=== PATIENT | male | born 1960 | race Caucasian/White ===

== ENCOUNTER 2017-12-29 20:56 | Inpatient (IN) ==
[2017-12-29] MEDS ORDERED: Nitroglycerin 1 INCH/GM PACKET TP ONE (20:59)
[2017-12-29] MEDS ORDERED: Aspirin 81 MG TAB.CHEW PO ONE (20:59)
--- NOTE | 2017-12-29 21:02 | Emergency Department Note ---
Disposition Clinical Impression: Nonspecific ST-T wave electrocardiographic changes, NSTEMI (non-ST elevated myocardial infarction) Hypertension Qualifiers: Hypertension type: unspecified Qualified Code(s): I10 - Essential (primary) hypertension Disposition: Admitted As Inpatient Condition: Fair Referrals: Mauro Serrano [Primary Care Provider] - Forms: ED Satisfaction Letter Time of Disposition: 22:04 Chest Pain HPI - General Chief Complaint: ED Chest Pain Stated Complaint: CP Time Seen by Provider: 12/29/17 20:59 Source: patient, EMS Mode of arrival: EMS Limitations: no limitations Vital Signs Reviewed: Yes Nursing Notes Reviewed: Yes - History of Present Illness HPI Narrative: 57-year-old male history of hypertension, diabetes, CABG. For evaluation of chest pain. Patient states onset was a couple hours prior to arrival. Noted be nonexertional. Left side with radiation of his left arm. Patient took aspirin as well as nitroglycerin which relieved the pain. However patient had recurrence of symptoms upon EMS arrival and received a second dose of nitroglycerin which resolved his pain. Patient denied any diaphoresis nausea or vomiting. Patient states that he is on aspirin does not take Plavix. Patient does not have a recent heart catheter cardiac evaluation. - Related Data Home Medications Medication Instructions Recorded Confirmed Amlodipine Besylate 10 mg PO DAILY 12/29/17 12/29/17 Aspirin [Lo-Dose Aspirin EC] 81 mg PO DAILY 12/29/17 12/29/17 Atorvastatin [Lipitor] 40 mg PO HS 12/29/17 12/29/17 Lisinopril [Zestril] 40 mg PO DAILY 12/29/17 12/29/17 Metoprolol Tartrate [Lopressor] 100 mg PO BID 12/29/17 12/29/17 Spironolactone [Aldactone] 50 mg PO DAILY 12/29/17 12/29/17 Allergies Allergy/AdvReac Type Severity Reaction Status Date / Time tramadol [From Ultram] Allergy See Verified 08/20/15 22:09 Comments All systems ED: reviewed and negative except as stated. Constitutional: Denies: fever Cardiovascular: Reports: chest pain. Denies: palpitations Respiratory: Denies: cough Gastrointestinal: Denies: abdominal pain, nausea, vomiting Chest Pain PMH - Past Medical History Medical history: Reports: coronary artery disease, CVA, diabetes, hyperlipidemia , hypertension, myocardial infarction, renal disease, seizures, other Surgical history: Reports: coronary bypass (CABG) Psychiatric history: Reports: no psych history - Social History Smoking Status: Never smoker Alcohol use: Reports: none Drug use: Reports: none Physical Exam - General Limitations: no limitations General appearance: alert, in no apparent distress, obese - Head Head exam: atraumatic, normocephalic, normal inspection - Eye Eye exam: Present: normal appearance, PERRL, EOMI - ENT ENT exam: normal exam, mucous membranes moist - Neck Neck exam: Present: normal inspection. Absent: trachea midline - Chest Chest inspection: Present: normal inspection, symmetric chest wall rise - Respiratory Respiratory exam: Present: normal lung sounds bilaterally, other (Diffusely decreased). Absent: respiratory distress - Cardiovascular Cardiovascular exam: Present: regular rate, normal rhythm. Absent: systolic murmur - Abdominal Exam Abdominal exam: Present: soft, Non-Tender, distention - Extremities Exam Extremities exam: Present: normal inspection. Absent: pedal edema - Back Exam Back exam: Present: normal inspection - Neurological Exam Neurological exam: Present: alert, oriented X3 Course Course Narrative: Patient seen and examined. Patient appears to be in no acute distress. Patient chest pain-free. Patient will require a workup. Patient patient's record review shows that he did have echo 3 years ago had an EF of 55%. Patient is chest pain-free currently. Patient received bolus aspirin prior to arrival. - Reevaluation(s) Reevaluation #1: Patient's resting comfortably. Awaiting labs. Time: 22:01 Reevaluation #2: Patient is updated on plan of care. Patient continues to be chest pain-free. Patient's blood pressure responded to nitroglycerin. Time: 22:18 Vital Signs O2 Sat by Pulse Oximetry 95 12/29/17 21:01 Temperature 98.2 F 12/29/17 21:04 Pulse Rate 67 12/29/17 21:55 Respiratory Rate 16 12/29/17 21:55 Blood Pressure 158/89 12/29/17 21:55 O2 Sat by Pulse Oximetry 97 12/29/17 21:55 Oxygen Delivery Oxygen Delivery Room Air Chest Pain - MDM Narrative Medical decision making narrative: 57-year-old male here for evaluation of chest pain. Patient does have a concerning history of ACS. Patient did have T-wave inversions change from prior EKGs. Patient's labs and chest x-ray and EKG reviewed. Patient was given a nitroglycerin patch given his hypertension. Patient does not note any chest pain. Given the patient's high risk story as well as EKG changes. The patient was started on heparin. Patient denies any blood in stool or dark tarry stools. Patient's hemoglobin is stable. Patient would benefit from further evaluation of his cardiopulmonary status with likely stress testing. Patient will be admitted also sirs or further care and monitoring. - Lab Data Lab results reviewed: Yes I reviewed the patient's lab results. Result diagrams: 12/29/17 21:36 12/29/17 21:36 Lab Results 12/29/17 12/29/17 12/29/17 Range/Units 21:36 21:36 21:36 WBC 13.8 H (4.3-11.1) K/mcL RBC 5.24 (4.19-5.50) M/mcL Hgb 14.8 (12.9-16.9) g/dL Hct 44.7 (37.5-50.1) % MCV 85.3 (83.0-100.0) fL MCH 28.2 (28.0-33.3) pg MCHC 33.1 (31.6-35.5) g/dL RDW 12.8 (11.5-14.5) % Plt Count 374 (140-400) K/mcL MPV 9.0 L (9.4-12.4) fL Immature Gran % 0.7 (0-4) % Seg Neutrophils % 75.3 % Lymphocytes % 13.7 % Monocytes % 7.6 % Eosinophils % 2.2 % Basophils % 0.5 % Neutrophils # 10.4 H (1.6-8.9) K/mcL Lymphocytes # 1.9 (0.6-4.6) K/mcL Monocytes # 1.1 (0.0-1.3) K/mcL Eosinophils # 0.3 (0.0-0.6) K/mcL Basophils # 0.1 (0.0-0.2) K/mcL PT 10.8 (9.4-12.1) Seconds INR 1.0 APTT 30.5 (26.0-36.0) Seconds Sodium (136-145) mEq/L Potassium (3.5-5.1) mEq/L Chloride (98-107) mEq/L Carbon Dioxide (23-29) mEq/L BUN (6-20) mg/dL Creatinine (0.70-1.30) mg/dL Est GFR ( Amer) (> 60) Est GFR (Non-Af Amer) (> 60) BUN/Creatinine Ratio (6-26) Glucose (70-105) mg/dL Calculated Osmolality (280-300) Calcium (8.6-10.3) mg/dL Troponin I (< 0.04) ng/mL B-Natriuretic Peptide 39 (Less than 100) pg/mL 12/29/17 12/29/17 Range/Units 21:36 21:36 WBC (4.3-11.1) K/mcL RBC (4.19-5.50) M/mcL Hgb (12.9-16.9) g/dL Hct (37.5-50.1) % MCV (83.0-100.0) fL MCH (28.0-33.3) pg MCHC (31.6-35.5) g/dL RDW (11.5-14.5) % Plt Count (140-400) K/mcL MPV (9.4-12.4) fL Immature Gran % (0-4) % Seg Neutrophils % % Lymphocytes % % Monocytes % % Eosinophils % % Basophils % % Neutrophils # (1.6-8.9) K/mcL Lymphocytes # (0.6-4.6) K/mcL Monocytes # (0.0-1.3) K/mcL Eosinophils # (0.0-0.6) K/mcL Basophils # (0.0-0.2) K/mcL PT (9.4-12.1) Seconds INR APTT (26.0-36.0) Seconds Sodium 138 (136-145) mEq/L Potassium 4.1 (3.5-5.1) mEq/L Chloride 108 H (98-107) mEq/L Carbon Dioxide 25 (23-29) mEq/L BUN 23 H (6-20) mg/dL Creatinine 1.68 H (0.70-1.30) mg/dL Est GFR ( Amer) 51 L (> 60) Est GFR (Non-Af Amer) 42 L (> 60) BUN/Creatinine Ratio 14 (6-26) Glucose 96 (70-105) mg/dL Calculated Osmolality 290 (280-300) Calcium 9.0 (8.6-10.3) mg/dL Troponin I 0.05 H* (< 0.04) ng/mL B-Natriuretic Peptide (Less than 100) pg/mL - Radiology Data Radiology results reviewed: Yes I reviewed the patient's radiology results. Chest X-Ray 12/29/17 20:59 IMPRESSION: Stable portable study. D/ / Dorothy Chahal Cha, MD / Dorothy Chahal Cha, MD Interpreting Provider: Dorothy Chahal Cha, MD - EKG Data EKG attestation: Yes I reviewed and interpreted this EKG. EKG shows normal: sinus rhythm Rate: normal Rhythm: NSR [place]/QRS: normal T wave inversions noted in: I, aVL, v3, v4, v5, v6 When compared to previous EKG there are: changes noted Interpretation: nonspecific ST-T wave changes Heart Score - Score History: Highly Suspicious EKG: Non Specific repolarisation Disturbance Age: 45-65 Risk Factors: Equal/Greater than 3 risk factor or history of atherosclerotic disease Troponin: Less than normal limit HEART Score Total: 6 S.B.A.R. - S.B.A.RAbdiaziz Situation: Demographics Background: Presenting Complaint Assessment: Vital Signs, Course and respsone to treatment, Patient/Family Expectation, Pertinant Lab Results Recommendation: Barrier(s) to disposition, Recommendation based on pending studies, treatments, or consults S.B.A.RAbdiaziz Report Given to: Dr. Curtis SAbdiazizB.AMady Repor Time: 22:16
--- NOTE | 2017-12-29 21:11 | Emergency Department Note ---
START Narrative - START START: I examined this patient and my medical decision-making was reviewed with the Resident Physician, Ike Landeros. I agree with the documented findings, disposition and treatment plan as described except to the extent set forth below. I have personally performed a face to face evaluation on this patient. I have reviewed and agree with the care plan. Briefly: A 49-year-old male history of coronary artery bypass graft surgery presents with chest pain and shortness of breath. By EMS. Providing 45 minutes critical care service for this patient. Patient has subtle lateral ST depressions and T-wave inversions concerning for ischemia. But no acute ST elevations. Patient on aspirin per EMS. Patient will be getting chest x-ray and screening labs including troponin with admission. Admission disposition pending.
[2017-12-29 21:48] LABS: Basophils # 0.1 K/mcL (0.0-0.2); Basophils % 0.5 %; Eosinophils # 0.3 K/mcL (0.0-0.6); Eosinophils % 2.2 %; Hematocrit 44.7 % (37.5-50.1); Hemoglobin 14.8 g/dL (12.9-16.9); Immature Granulocytes % 0.7 % (0-4); Lymphocytes # 1.9 K/mcL (0.6-4.6); Lymphocytes % 13.7 %; Mean Corpuscular HGB Conc 33.1 g/dL (31.6-35.5); Mean Corpuscular Hemoglobin 28.2 pg (28.0-33.3); Mean Corpuscular Volume 85.3 fL (83.0-100.0); Monocytes # 1.1 K/mcL (0.0-1.3); Monocytes % 7.6 %; Neutrophils # 10.4 K/mcL (1.6-8.9); Platelet Count 374 K/mcL (140-400); Red Blood Count 5.24 M/mcL (4.19-5.50); Red Cell Distribution Width 12.8 % (11.5-14.5); Segmented Neutrophils % 75.3 %
[2017-12-29 21:53] LABS: Prothrombin Time 10.8 Seconds (9.4-12.1)
[2017-12-29 21:55] LABS: Activated Partial Thrombo Time 30.5 Seconds (26.0-36.0)
[2017-12-29] MEDS ORDERED: *HR* Heparin 5,000 UNIT/ML VIAL IVP ONE (21:59)
[2017-12-29] MEDS ORDERED: Heparin 25,000 UNIT/500 ML D5W 25,000 UNIT/500 ML BAG IVC SCH (22:00)
[2017-12-29 22:04] LABS: Potassium 4.1 mEq/L (3.5-5.1)
--- NOTE | 2017-12-29 22:44 | Emergency Department Note ---
Disposition Clinical Impression: Nonspecific ST-T wave electrocardiographic changes, NSTEMI (non-ST elevated myocardial infarction) Hypertension Qualifiers: Hypertension type: unspecified Qualified Code(s): I10 - Essential (primary) hypertension Disposition: Admitted As Inpatient Condition: Fair General Adult HPI - General Chief complaint: ED Chest Pain Stated complaint: CP Time Seen by Provider: 12/29/17 20:59 Source: patient, EMS Mode of arrival: EMS Limitations: no limitations - History of Present Illness Pain Scale: 0 - Related Data Home Medications Medication Instructions Recorded Confirmed Amlodipine Besylate 10 mg PO DAILY 12/29/17 12/29/17 Aspirin [Lo-Dose Aspirin EC] 81 mg PO DAILY 12/29/17 12/29/17 Atorvastatin [Lipitor] 40 mg PO HS 12/29/17 12/29/17 Lisinopril [Zestril] 40 mg PO DAILY 12/29/17 12/29/17 Metoprolol Tartrate [Lopressor] 100 mg PO BID 12/29/17 12/29/17 Spironolactone [Aldactone] 50 mg PO DAILY 12/29/17 12/29/17 Allergies Allergy/AdvReac Type Severity Reaction Status Date / Time tramadol [From Ultram] Allergy See Verified 08/20/15 22:09 Comments Constitutional: Denies: fever Cardiovascular: Reports: chest pain. Denies: palpitations Respiratory: Denies: cough Gastrointestinal: Denies: abdominal pain, nausea, vomiting Past Medical History - Past Medical History Medical history: Reports: coronary artery disease, CVA, diabetes, hyperlipidemia , hypertension, myocardial infarction, renal disease, seizures, other Surgical history: Reports: coronary bypass (CABG) Psychiatric history: Reports: no psych history - Social History Smoking Status: Never smoker Smokeless Tobacco Status: No Alcohol use: Reports: none Drug use: Reports: none Physical Exam - General Limitations: no limitations General appearance: alert, in no apparent distress, obese Course Course Narrative: Continuation of the prior documentation. Vital Signs O2 Sat by Pulse Oximetry 95 12/29/17 21:01 Temperature 98.2 F 12/29/17 21:04 Pulse Rate 67 12/29/17 21:55 Respiratory Rate 16 12/29/17 21:55 Blood Pressure 158/89 12/29/17 21:55 O2 Sat by Pulse Oximetry 97 12/29/17 21:55 Oxygen Delivery Oxygen Delivery Room Air Medical Decision Making - Lab Data Result diagrams: 12/29/17 21:36 12/29/17 21:36 Lab Results 12/29/17 12/29/17 12/29/17 Range/Units 21:36 21:36 21:36 WBC 13.8 H (4.3-11.1) K/mcL RBC 5.24 (4.19-5.50) M/mcL Hgb 14.8 (12.9-16.9) g/dL Hct 44.7 (37.5-50.1) % MCV 85.3 (83.0-100.0) fL MCH 28.2 (28.0-33.3) pg MCHC 33.1 (31.6-35.5) g/dL RDW 12.8 (11.5-14.5) % Plt Count 374 (140-400) K/mcL MPV 9.0 L (9.4-12.4) fL Immature Gran % 0.7 (0-4) % Seg Neutrophils % 75.3 % Lymphocytes % 13.7 % Monocytes % 7.6 % Eosinophils % 2.2 % Basophils % 0.5 % Neutrophils # 10.4 H (1.6-8.9) K/mcL Lymphocytes # 1.9 (0.6-4.6) K/mcL Monocytes # 1.1 (0.0-1.3) K/mcL Eosinophils # 0.3 (0.0-0.6) K/mcL Basophils # 0.1 (0.0-0.2) K/mcL PT 10.8 (9.4-12.1) Seconds INR 1.0 APTT 30.5 (26.0-36.0) Seconds Sodium (136-145) mEq/L Potassium (3.5-5.1) mEq/L Chloride (98-107) mEq/L Carbon Dioxide (23-29) mEq/L BUN (6-20) mg/dL Creatinine (0.70-1.30) mg/dL Est GFR ( Amer) (> 60) Est GFR (Non-Af Amer) (> 60) BUN/Creatinine Ratio (6-26) Glucose (70-105) mg/dL Calculated Osmolality (280-300) Calcium (8.6-10.3) mg/dL Troponin I (< 0.04) ng/mL B-Natriuretic Peptide 39 (Less than 100) pg/mL 12/29/17 12/29/17 Range/Units 21:36 21:36 WBC (4.3-11.1) K/mcL RBC (4.19-5.50) M/mcL Hgb (12.9-16.9) g/dL Hct (37.5-50.1) % MCV (83.0-100.0) fL MCH (28.0-33.3) pg MCHC (31.6-35.5) g/dL RDW (11.5-14.5) % Plt Count (140-400) K/mcL MPV (9.4-12.4) fL Immature Gran % (0-4) % Seg Neutrophils % % Lymphocytes % % Monocytes % % Eosinophils % % Basophils % % Neutrophils # (1.6-8.9) K/mcL Lymphocytes # (0.6-4.6) K/mcL Monocytes # (0.0-1.3) K/mcL Eosinophils # (0.0-0.6) K/mcL Basophils # (0.0-0.2) K/mcL PT (9.4-12.1) Seconds INR APTT (26.0-36.0) Seconds Sodium 138 (136-145) mEq/L Potassium 4.1 (3.5-5.1) mEq/L Chloride 108 H (98-107) mEq/L Carbon Dioxide 25 (23-29) mEq/L BUN 23 H (6-20) mg/dL Creatinine 1.68 H (0.70-1.30) mg/dL Est GFR ( Amer) 51 L (> 60) Est GFR (Non-Af Amer) 42 L (> 60) BUN/Creatinine Ratio 14 (6-26) Glucose 96 (70-105) mg/dL Calculated Osmolality 290 (280-300) Calcium 9.0 (8.6-10.3) mg/dL Troponin I 0.05 H* (< 0.04) ng/mL B-Natriuretic Peptide (Less than 100) pg/mL - EKG Data EKG #2 EKG attestation: Yes I reviewed and interpreted this EKG. EKG shows normal: sinus rhythm Rate: normal Rhythm: NSR [place]/QRS: normal ST segment elevation in: III T wave inversions noted in: I, aVL, v2, v3, v4, v5, v6
[2017-12-29] MEDS ORDERED: Naloxone 0.4 MG/ML INJ IVP PRN (23:16)
[2017-12-29] MEDS ORDERED: *HR* Heparin 5,000 UNIT/ML VIAL IVP PRN ×2 (23:20)
[2017-12-30] MEDS ORDERED: *HR* OxyCODONE/APAP 10/325 TABLET PO PRN (00:07)
--- NOTE | 2017-12-30 00:07 | Internal Med History&Physical ---
Date of Encounter: 12/29/17 Time of Encounter: 22:00 Assessment and Plan (1) CKD (chronic kidney disease) Current visit: Yes Status: Acute Creatinine level is at his baseline. Avoid the nephrotoxic medications Qualifiers: Chronic kidney disease stage: stage 3 (moderate) Qualified Code(s): N18.3 - Chronic kidney disease, stage 3 (moderate) (2) Morbid obesity Current visit: Yes Status: Acute Patient said he has already lost some weight. Continue lifestyle modification and diet control (3) Hypertension Current visit: Yes Status: Acute Continue home medications Qualifiers: Hypertension type: essential hypertension Qualified Code(s): I10 - Essential (primary) hypertension (4) Non-STEMI (non-ST elevated myocardial infarction) Current visit: Yes Status: Acute Patient has chest pain. EKG changes with T-wave inversion. Elevated troponin. History of CAD S/P CABG. Consider NSTEMI. - Heparin drip started the ER, will continue - Closely monitor patient with cardiac monitoring - 3 sets of troponin - NTG paste has been placed - Nothing by mouth from midnight for possible catheterization. - Consult cardiology. Patient is at high risk because he is on heparin drip. Need close monitoring. (5) DVT prophylaxis Current visit: No Status: Acute Patient is on heparin drip right now Internal Medicine - H&P: HPI Chief complaint: Chest pain Admitted From: Home Plans for Post Hospital Care: Home History of present illness: Mr. Lujna is a 57 year old male with a history of hypertension, CAD S/P CABG, chronic back pain, presented to ER for chest pain. Patient said he has on and off chest pain for about one month. Today at about 7:30 PM, when patient was sitting there drinking Pepsi, he had sudden onset chest pain, located on left side of chest, sharp, 10 out of 10, radiated to left arm. Patient has shortness of breath, nausea and vomited once, and diaphoresis. Patient's daughter said he looks pale. Patient takes NTG sublingual at home and he was given another dose of NTG by EMS. His chest pain resolved after two dose of NTG sublingual. When I saw patient in the ER, he is totally pain free. His chest pain lasted about 2 hours. In the emergency room, chest x-ray negative, EKG shows T-wave inversion on I and aVL, V2 to V6, which is changed from previous EKG. No ST elevation. His first troponin is 0.05. Patient was considered NSTEMI and heparin drip has been started. Patient will keep in hospital for further management. Past Med Surg Social Fam HX - Past Medical History Medical history: coronary artery disease, CVA, diabetes, hyperlipidemia, hypertension, myocardial infarction, renal disease, other Psychiatric history: no psych history - Past Surgical History Surgical History: coronary bypass (CABG) - Social History Smoking Status: Never smoker Smokeless Tobacco Status: No Alcohol use: occasionally Drug use: none - Family History Mother Living Status: Hx Family Cancer: Yes (Lung) Father Name: Freddy Lujan Living Status: Age at : 70 Cause of : heart attack Hx Family Cardiac Disorders: Yes Hx Family Respiratory Disorders: No Hx Family Cancer: No Hx Family GI Disorders: No Hx Family Genitourinary Disorders: No Hx Family Endocrine Disorder: Yes (DM) Hx Family Musculoskeletal Disorders: No Hx Family Neuromuscular Disorders: No Hx Family Neurologic Disorders: No Hx Family HEENT Disorders: No Hx Family Autoimmune Disorders: No Hx Family Reproductive Disorders: No Hx Family Psychosocial Disorders: No Hx Family Medical Disorders: No Internal Medicine - H&P: Meds Amlodipine Besylate 10 mg PO DAILY 12/29/17 [History] Aspirin [Lo-Dose Aspirin EC] 81 mg PO DAILY 12/29/17 [History] Atorvastatin [Lipitor] 40 mg PO HS 12/29/17 [History] Lisinopril [Zestril] 40 mg PO DAILY 12/29/17 [History] Metoprolol Tartrate [Lopressor] 100 mg PO BID 12/29/17 [History] Spironolactone [Aldactone] 50 mg PO DAILY 12/29/17 [History] 3 Allergy/AdvReac Type Severity Reaction Status Date / Time tramadol [From Ultram] Allergy See Verified 08/20/15 22:09 Comments All Systems PM: A 10-system review of systems was performed and is negative for pertinent findings except as documented above in the HPI. - Constitutional Vitals: Temp Pulse Resp BP Pulse Ox 98.1 F 68 17 162/98 95 12/29/17 23:23 12/29/17 23:23 12/29/17 23:23 12/29/17 23:23 12/29/17 23:23 General appearance: Present: A&O X 3, no acute distress, answers questions appropriately - Head Head exam: Present: atraumatic, normocephalic - Eye Eye exam: Present: PERRL, conjuntiva pink, sclera anicteric Pupils: Present: PERRL - Neck Neck exam general surgery: Present: supple, trachea midline. Absent: lymphadenopathy - Respiratory Respiratory exam: Present: CTAB. Absent: accessory muscle use, rales, rhonchi, wheezes - Cardiovascular Cardiovascular exam: Present: RRR, +S1, +S2. Absent: diastolic murmur, gallop, rubs, systolic murmur - GI/Abdominal GI/Abdominal exam: Present: normal bowel sounds, soft, no peritoneal signs. Absent: distended, tenderness - Extremities Exam Extremities exam: Present: warm, radial pulses palpable and symmetrical. Absent : calf tenderness, cyanotic, pedal edema - Neurological Exam Neurological exam: Present: CN II-XII intact, oriented X3, no focal deficits. Absent: pronater drift, facial droop, speech deficit - Skin Skin exam: Present: dry, intact Internal Med - H&P Results - Labs CBC & Chem 7: 12/29/17 21:36 12/29/17 21:36 - EKG Data -: EKG Interpreted by Myself EKG shows normal: sinus rhythm, ST-T waves (P wave inversion at I, aVL, V2 to V6 )
[2017-12-30] MEDS ORDERED: 0.9 % Sodium Chloride 1,000 ML IVC SCH (00:15)
[2017-12-30 05:14] LABS: Basophils # 0.1 K/mcL (0.0-0.2); Basophils % 0.8 %; Eosinophils # 0.5 K/mcL (0.0-0.6); Eosinophils % 3.6 %; Hematocrit 45.3 % (37.5-50.1); Hemoglobin 14.7 g/dL (12.9-16.9); Immature Granulocytes % 0.9 % (0-4); Lymphocytes # 3.6 K/mcL (0.6-4.6); Mean Corpuscular HGB Conc 32.5 g/dL (31.6-35.5); Mean Corpuscular Hemoglobin 27.8 pg (28.0-33.3); Mean Corpuscular Volume 85.8 fL (83.0-100.0); Mean Platelet Volume 9.3 fL (9.4-12.4); Monocytes # 0.9 K/mcL (0.0-1.3); Monocytes % 7.1 %; Neutrophils # 7.7 K/mcL (1.6-8.9); Platelet Count 351 K/mcL (140-400); Red Blood Count 5.28 M/mcL (4.19-5.50); Red Cell Distribution Width 12.7 % (11.5-14.5); Segmented Neutrophils % 59.6 %
[2017-12-30 05:39] LABS: BUN/Creatinine Ratio 19 (6-26); Blood Urea Nitrogen 26 mg/dL (6-20); Calcium 9.1 mg/dL (8.6-10.3); Carbon Dioxide 24 mEq/L (23-29); Chloride 110 mEq/L (98-107); Chol/HDL Ratio 5.6 (0-4.9); Cholesterol 163 mg/dL (< 200); Glucose 99 mg/dL (70-105); HDL Cholesterol 29 mg/dL (40-59); LDL Cholesterol,Calculated 109 mg/dL (0-99); Magnesium 2.2 mg/dL (1.6-2.6); Osmolality,Calculated 295 (280-300); Potassium 3.8 mEq/L (3.5-5.1); Sodium 140 mEq/L (136-145); Triglycerides 126 mg/dL (< 150); eGFR For African Americans > 60 (> 60); eGFR For Non-African Americans 53 (> 60)
[2017-12-30] MEDS ORDERED: amLODIPine 5 MG TABLET PO SCH (09:00)
[2017-12-30] MEDS ORDERED: Lisinopril 20 MG TABLET PO SCH (09:00)
[2017-12-30] MEDS ORDERED: Aspirin Enteric Coated 81 MG Tablet PO SCH (09:00)
--- NOTE | 2017-12-30 09:50 | Cardiology Consult Note ---
Date of Encounter: 12/30/17 Time of Encounter: 09:48 Assessment and Plan (1) NSTEMI (non-ST elevated myocardial infarction) Current Visit: No Status: Acute Chest pain with abnormal EKG and enzymes, c/w NSTEMI. Currently CP free. Would recommend ASA, BBlocker, heparin as you are doing. Recommend he consider left heart cath, he will consider. Discussion w patient/family: The assessment and plan as outlined above was discussed with the patient and/or family members who expressed understanding and agreement. All questions were answered. Thank you for involving us in the care of your patient. Please call with any questions. History of Present Illness Consult date: 12/30/17 Requesting physician: Carole Sweet Consult reason: NSTEMI Chief complaint: Chest pain History of present illness: Mr. Lujan is a 57 year old male with history of CAD, S/P CABG. He presents with chest pain with rest that did not initially respond to nitro. Past Med Surg Social Fam HX - Past Medical History Medical history: coronary artery disease, CVA, diabetes, hyperlipidemia, hypertension, myocardial infarction, renal disease, other Psychiatric history: no psych history - Past Surgical History Surgical History: coronary bypass (CABG) - Social History Smoking Status: Never smoker Smokeless Tobacco Status: No Alcohol use: occasionally Drug use: none - Family History Mother Living Status: Hx Family Cancer: Yes (Lung) Father Name: Freddy Lujan Living Status: Age at : 70 Cause of : heart attack Hx Family Cardiac Disorders: Yes Hx Family Respiratory Disorders: No Hx Family Cancer: No Hx Family GI Disorders: No Hx Family Genitourinary Disorders: No Hx Family Endocrine Disorder: Yes (DM) Hx Family Musculoskeletal Disorders: No Hx Family Neuromuscular Disorders: No Hx Family Neurologic Disorders: No Hx Family HEENT Disorders: No Hx Family Autoimmune Disorders: No Hx Family Reproductive Disorders: No Hx Family Psychosocial Disorders: No Hx Family Medical Disorders: No Medications and Allergies Amlodipine Besylate 10 mg PO DAILY 12/29/17 [History] Aspirin [Lo-Dose Aspirin EC] 81 mg PO DAILY 12/29/17 [History] Atorvastatin [Lipitor] 40 mg PO HS 12/29/17 [History] Lisinopril [Zestril] 40 mg PO DAILY 12/29/17 [History] Metoprolol Tartrate [Lopressor] 100 mg PO BID 12/29/17 [History] Spironolactone [Aldactone] 50 mg PO DAILY 12/29/17 [History] 3 Allergy/AdvReac Type Severity Reaction Status Date / Time tramadol [From Ultram] Allergy See Verified 08/20/15 22:09 Comments All Systems Review: A 10-system review of systems was performed and is negative for pertinent findings except as documented above in the HPI. Physical Examination Vital Signs, Last 4 Hours Temp Pulse Resp BP Pulse Ox 12/30/17 07:42 97.6 F 63 16 156/92 94 Results 12/30/17 04:28 12/30/17 04:28 Lab Results 12/30/17 12/30/17 12/30/17 04:28 04:28 04:28 WBC 12.9 H Hgb 14.7 Hct 45.3 Plt Count 351 APTT Sodium 140 Potassium 3.8 Chloride 110 H Carbon Dioxide 24 BUN 26 H Creatinine 1.38 H Glucose 99 Calcium 9.1 Magnesium 2.2 Troponin I 1.11 H* 12/30/17 04:28 WBC Hgb Hct Plt Count APTT 55.8 H D Sodium Potassium Chloride Carbon Dioxide BUN Creatinine Glucose Calcium Magnesium Troponin I - EKG Interpretation EKG results cardiology: other (NSR, diffuse T wave changes, similar to previous EKGs) Consult Discharge Plan - Plan Referrals: Mauro Serrano [Primary Care Provider] -
[2017-12-30 11:08] VITALS: BP 162/85
--- NOTE | 2017-12-30 13:38 | Discharge Summary ---
Date of Encounter: 12/30/17 Time of Encounter: 13:34 - Discharge Diagnosis (1) Non-STEMI (non-ST elevated myocardial infarction) Priority: Primary Status: Acute (2) OSCAR (acute kidney injury) Priority: Primary Status: Acute (3) Hypertension Priority: Secondary Status: Acute Qualifiers: Hypertension type: essential hypertension Qualified Code(s): I10 - Essential (primary) hypertension (4) Morbid obesity Priority: Secondary Status: Acute (5) CAD (coronary artery disease) Priority: Secondary Status: Chronic Qualifiers: Coronary Disease-Associated Artery/Lesion type: unspecified vessel or lesion type [place] vs. transplanted heart: [place] heart Associated angina: with stable angina Qualified Code(s): I25.118 - Atherosclerotic heart disease of [place] coronary artery with other forms of angina pectoris - Discharge Medications Prescriptions: Isosorbide MONOnitrate (24 HR) [Imdur] 30 mg PO DAILY #30 tab.er.24h Home Medications: Amlodipine Besylate 10 mg PO DAILY 12/29/17 [History] Aspirin [Lo-Dose Aspirin EC] 81 mg PO DAILY 12/29/17 [History] Atorvastatin [Lipitor] 40 mg PO HS 12/29/17 [History] Lisinopril [Zestril] 40 mg PO DAILY 12/29/17 [History] Metoprolol Tartrate [Lopressor] 100 mg PO BID 12/29/17 [History] Spironolactone [Aldactone] 50 mg PO DAILY 12/29/17 [History] Isosorbide MONOnitrate (24 HR) [Imdur] 30 mg PO DAILY #30 tab.er.24h 12/30/17 [ Rx] Oxycodone HCl/Acetaminophen [Endocet 10-325 mg Tablet] 1 tab PO QID PRN [History] Pregabalin [Lyrica] 200 mg PO BID 12/30/17 [History] Allergies/Adverse Reactions: 3 Allergy/AdvReac Type Severity Reaction Status Date / Time tramadol [From Ultram] Allergy See Verified 08/20/15 22:09 Comments Procedures/tests Complete & Pending: Procedures Performed prior 72 hours Category Date Time Status EV echocardiogram Routine Y 12/30/17 10:15 Ordered Date of admission: 12/29/17 23:17 Primary care physician: Mauro Serrano Consults: 12/29/17 23:22 Consult to Cardiology [CONS] Routine Comment: Consulting Provider: Cardiology Jeana Reason for Consult: NSTEMI Call Completed: No Discharging clinician: Adam Alicia - Patient Status Disposition: Left Against Medical Advice Condition: Fair Overall status at discharge: patient is not back to baseline - Discharge Instructions Instructions: Myocardial Infarction (DC), Diabetes Mellitus Type 2 in Adults ( DC), Chronic Hypertension (DC) Follow Up With: Mauro Serrano [Primary Care Provider] - Jn Leblanc MD [Partnered Physician] - - Diet and Activity Activity: increase activity as tolerated Diet: diabetic diet, low fat, low cholesterol, low salt diet Interval History: Mr. Lujan is a 57 year old male with a history of hypertension, CAD S/P CABG, chronic back pain, presented to ER for chest pain. Patient said he has on and off chest pain for about one month. Today at about 7:30 PM, when patient was sitting there drinking Pepsi, he had sudden onset chest pain, located on left side of chest, sharp, 10 out of 10, radiated to left arm. Patient has shortness of breath, nausea and vomited once, and diaphoresis. Patient's daughter said he looks pale. Patient takes NTG sublingual at home and he was given another dose of NTG by EMS. His chest pain resolved after two dose of NTG sublingual. Hospital course: Patient was examined by me this morning. Patient was just pain-free. Noted that there is a ongoing heparin drip. Patient is presently on aspirin/beta kay/statin and heparin drip. Cardiology consult today. Cardiology evaluated this patient. Cardiology recommended present treatment along with that also recommended left heart cardiac catheterization. Around 1 PM patient decided that he is not keen to go for any invasive procedure for his heart. Patient feels that during the procedure he might get a heart attack. I along with RUBI Rosenberg explained patient at length that this is the most essential and safe procedure for patient and he should highly consider to get it done. Patient is insisting to go home to watch [employer]. I spoke with Dr. Jn Leblanc. Updated above. Patient has also expressed the same concern with Dr. Jn Leblanc and he is aware that patient might leave the hospital without cardiac catheterization. I also informed Dr. Lynn Leblanc who is a property assistant development professional today regarding possibility that patient might come back with the worsening troponin and extensive VT. One more time I along with the RN Chet patient's room and explained him the risk of leaving this hospital AGAINST MEDICAL ADVICE. I explained to the patient that he might get another severe heart attack, stroke or there is a high possibility that he may from these conditions. And insisted to go home. Plan: At this point I will give him prescription for Imdur. I will make a follow-up appointment with cardiology in 1 week. Patient has a home medication in terms of aspirin/beta blockers/statin. All questions answered. Again I requested patient to stay back and get catheterization done but he insists to leave hospital. Patient will be leaving AGAINST MEDICAL ADVICE. - Time Spent with Patient Total time spent providing and/or coordinating discharge services: Less than 30 minutes - Constitutional Vitals: Temp Pulse Resp BP Pulse Ox 97.6 F 78 14 162/85 94 12/30/17 11:06 12/30/17 11:06 12/30/17 11:06 12/30/17 11:06 12/30/17 11:06 General appearance: Present: A&O X 3, no acute distress, answers questions appropriately - Head Head exam: Present: atraumatic, normocephalic - Eye Eye exam: Present: PERRL, conjuntiva pink, sclera anicteric Pupils: Present: PERRL - Neck Neck exam general surgery: Present: supple, trachea midline. Absent: lymphadenopathy - Respiratory Respiratory exam: Present: CTAB. Absent: accessory muscle use, rales, rhonchi, wheezes - Cardiovascular Cardiovascular exam: Present: RRR, +S1, +S2. Absent: diastolic murmur, gallop, rubs, systolic murmur - GI/Abdominal GI/Abdominal exam: Present: normal bowel sounds, soft, no peritoneal signs. Absent: distended, tenderness - Extremities Exam Extremities exam: Present: warm, radial pulses palpable and symmetrical. Absent : calf tenderness, cyanotic, pedal edema - Neurological Exam Neurological exam: Present: CN II-XII intact, oriented X3, no focal deficits. Absent: pronater drift, facial droop, speech deficit - Skin Skin exam: Present: dry, intact
[2017-12-30] MEDS ORDERED: Perflutren Lipid Microsphere 1.3 ML in 0.9 % Sodium Chloride 8.7 ML IVP ONE (14:21)
--- NOTE | 2018-01-01 20:11 | Electrocardiograph Report ---
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
--- NOTE | 2018-01-01 20:12 | Electrocardiograph Report ---
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
== END 2017-12-30 16:36 | disposition left against medical advice (07) | DRG 190 ==
LOC: 2NENU 20:56 → EMEROO 20:56 → 2NENU 23:01
PROVIDERS: ADMIT Pediatrics; ATTEND Internal Medicine

== ENCOUNTER 2018-01-12 17:27 | Inpatient (IN) ==
--- NOTE | 2018-01-12 17:32 | Emergency Department Note ---
Disposition Clinical Impression: Chest pain Disposition: Admitted As Inpatient Condition: Serious General Adult HPI - General Chief complaint: ED Arrhythmia/Palpitations Stated complaint: chest pain Time Seen by Provider: 01/12/18 17:31 - Related Data Home Medications Medication Instructions Recorded Confirmed Amlodipine Besylate 10 mg PO DAILY 12/29/17 12/30/17 Aspirin [Lo-Dose Aspirin EC] 81 mg PO DAILY 12/29/17 12/30/17 Atorvastatin [Lipitor] 40 mg PO HS 12/29/17 12/30/17 Lisinopril [Zestril] 40 mg PO DAILY 12/29/17 12/30/17 Metoprolol Tartrate [Lopressor] 100 mg PO BID 12/29/17 12/30/17 Spironolactone [Aldactone] 50 mg PO DAILY 12/29/17 12/30/17 Oxycodone HCl/Acetaminophen 1 tab PO QID PRN 12/30/17 12/30/17 [Endocet 10-325 mg Tablet] Pregabalin [Lyrica] 200 mg PO BID 12/30/17 12/30/17 Previous Rx's Medication Instructions Recorded Isosorbide MONOnitrate (24 HR) 30 mg PO DAILY #30 tab.er.24h 12/30/17 [Imdur] Allergies Allergy/AdvReac Type Severity Reaction Status Date / Time tramadol [From [facility]] Allergy See Verified 08/20/15 22:09 Comments Past Medical History - Past Medical History Medical history: Reports: coronary artery disease, CVA, diabetes, hyperlipidemia , hypertension, myocardial infarction, renal disease, other Surgical history: Reports: coronary bypass (CABG) Psychiatric history: Reports: no psych history - Social History Smoking Status: Never smoker Smokeless Tobacco Status: No Alcohol use: Reports: occasionally Drug use: Reports: none Course Vital Signs Temperature 98.2 F 01/12/18 17:31 Pulse Rate 72 01/12/18 17:31 Respiratory Rate 14 01/12/18 17:31 Blood Pressure 167/99 01/12/18 17:31 O2 Sat by Pulse Oximetry 94 01/12/18 17:31 Temperature 98.1 F 01/13/18 07:08 Pulse Rate 71 01/13/18 07:08 Respiratory Rate 16 01/13/18 07:08 Blood Pressure 162/96 01/13/18 07:08 O2 Sat by Pulse Oximetry 96 01/13/18 08:15 Oxygen Delivery Oxygen Delivery Room Air Medical Decision Making - Lab Data Result diagrams: 01/13/18 00:48 01/13/18 00:48 Lab Results 01/12/18 01/12/18 01/12/18 Range/Units 17:52 17:52 17:52 WBC 17.0 H (4.3-11.1) K/mcL RBC 5.24 (4.19-5.50) M/mcL Hgb 15.0 (12.9-16.9) g/dL Hct 45.1 (37.5-50.1) % MCV 86.1 (83.0-100.0) fL MCH 28.6 (28.0-33.3) pg MCHC 33.3 (31.6-35.5) g/dL RDW 12.8 (11.5-14.5) % Plt Count 327 (140-400) K/mcL MPV 9.6 (9.4-12.4) fL Immature Gran % 0.5 (0-4) % Seg Neutrophils % 88.0 % Lymphocytes % 6.9 % Monocytes % 3.8 % Eosinophils % 0.4 % Basophils % 0.4 % Neutrophils # 15.0 H (1.6-8.9) K/mcL Lymphocytes # 1.2 (0.6-4.6) K/mcL Monocytes # 0.7 (0.0-1.3) K/mcL Eosinophils # 0.1 (0.0-0.6) K/mcL Basophils # 0.1 (0.0-0.2) K/mcL PT 11.5 (9.4-12.1) Seconds INR 1.1 APTT 31.5 (26.0-36.0) Seconds Sodium 139 (136-145) mEq/L Potassium 4.8 (3.5-5.1) mEq/L Chloride 106 (98-107) mEq/L Carbon Dioxide 26 (23-29) mEq/L BUN 21 H (6-20) mg/dL Creatinine 1.44 H (0.70-1.30) mg/dL Est GFR ( Amer) > 60 (> 60) Est GFR (Non-Af Amer) 50 L (> 60) BUN/Creatinine Ratio 15 (6-26) Glucose 135 H (70-105) mg/dL Calculated Osmolality 293 (280-300) Calcium 9.8 (8.6-10.3) mg/dL Troponin I (< 0.04) ng/mL 01/12/18 01/12/18 01/12/18 Range/Units 17:52 18:41 18:41 WBC 16.9 H (4.3-11.1) K/mcL RBC 5.22 (4.19-5.50) M/mcL Hgb 14.6 (12.9-16.9) g/dL Hct 44.9 (37.5-50.1) % MCV 86.0 (83.0-100.0) fL MCH 28.0 (28.0-33.3) pg MCHC 32.5 (31.6-35.5) g/dL RDW 12.6 (11.5-14.5) % Plt Count 377 (140-400) K/mcL MPV 9.1 L (9.4-12.4) fL Immature Gran % (0-4) % Seg Neutrophils % % Lymphocytes % % Monocytes % % Eosinophils % % Basophils % % Neutrophils # (1.6-8.9) K/mcL Lymphocytes # (0.6-4.6) K/mcL Monocytes # (0.0-1.3) K/mcL Eosinophils # (0.0-0.6) K/mcL Basophils # (0.0-0.2) K/mcL PT (9.4-12.1) Seconds INR APTT 31.3 (26.0-36.0) Seconds Sodium (136-145) mEq/L Potassium (3.5-5.1) mEq/L Chloride (98-107) mEq/L Carbon Dioxide (23-29) mEq/L BUN (6-20) mg/dL Creatinine (0.70-1.30) mg/dL Est GFR ( Amer) (> 60) Est GFR (Non-Af Amer) (> 60) BUN/Creatinine Ratio (6-26) Glucose (70-105) mg/dL Calculated Osmolality (280-300) Calcium (8.6-10.3) mg/dL Troponin I 0.05 H* (< 0.04) ng/mL Critical Care Time Critical Care Time: Yes Total Critical Care Time: 30 Attestation: The high probability of a clinically significant, sudden or life threatening deterioration of the [] system(s) required my full and direct attention, intervention and personal management. The aggregate critical care time was [] minutes. This time is in addition to time spent performing reported procedures but includes the following: [] Data Review and interpretation [] Patient assessment and monitoring of vital signs [] Documentation [] Medication orders and management Attestation Statement - Attestation Attestation: I examined this patient and my medical decision-making was reviewed with the Resident Physician. I agree with the documented findings, disposition and treatment plan as described except to the extent set forth below. [id number] time provided in conjunction with the resident physician Dr. Kiser Patient arrives by EMS complaining of chest discomfort over the past 4 hours. History of CABG. Was recently admitted for an N STEMI. The patient took 3 prehospital nitroglycerin and has started had an aspirin. He does not appear in any acute distress. I did review the transcribed cardiology consultation report from his most recent admission 18:38: I discussed this case with Dr. Muñoz, cardiology assistant director of admissions who agrees to evaluate the patient in consultation upon admission to the medicine service
--- NOTE | 2018-01-12 17:55 | Emergency Department Note ---
Disposition Clinical Impression: Chest pain Qualifiers: Chest pain type: precordial pain Qualified Code(s): R07.2 - Precordial pain Disposition: Admitted As Inpatient Condition: Serious Time of Disposition: 20:30 Chest Pain HPI - General Chief Complaint: ED Chest Pain Stated Complaint: chest pain Time Seen by Provider: 01/12/18 17:31 Source: patient Vital Signs Reviewed: Yes Nursing Notes Reviewed: Yes - History of Present Illness HPI Narrative: 57-year-old male complains of chest pain that started 3-1/2 hours ago. Patient states he has mid substernal chest pressure that was 9/10 at onset with radiation down the left arm and to his back without a ripping or tearing quality. Patient states he had associated shortness of breath and lightheadedness. Patient states he is unable to drive and called EMS. Patient states she has never had pain like this before but has a history of SD with attempted heart catheter placement 2 years ago, and CABG. patient states his pain is currently 4/10 after 3 nitroglycerin taken at home, morphine 4 mg IV given by EMS. He also has a history of CVA, diabetes, hypertension, hyperlipidemia renal disease Severity scale (1-10): 4 - Related Data Home Medications Medication Instructions Recorded Confirmed Amlodipine Besylate 10 mg PO DAILY 12/29/17 12/30/17 Aspirin [Lo-Dose Aspirin EC] 81 mg PO DAILY 12/29/17 12/30/17 Atorvastatin [Lipitor] 40 mg PO HS 12/29/17 12/30/17 Lisinopril [Zestril] 40 mg PO DAILY 12/29/17 12/30/17 Metoprolol Tartrate [Lopressor] 100 mg PO BID 12/29/17 12/30/17 Spironolactone [Aldactone] 50 mg PO DAILY 12/29/17 12/30/17 Oxycodone HCl/Acetaminophen 1 tab PO QID PRN 12/30/17 12/30/17 [Endocet 10-325 mg Tablet] Pregabalin [Lyrica] 200 mg PO BID 12/30/17 12/30/17 Previous Rx's Medication Instructions Recorded Isosorbide MONOnitrate (24 HR) 30 mg PO DAILY #30 tab.er.24h 12/30/17 [Imdur] Allergies Allergy/AdvReac Type Severity Reaction Status Date / Time tramadol [From Ultra] Allergy See Verified 08/20/15 22:09 Comments All systems ED: reviewed and negative except as stated. Review of Systems: As Per HPI Constitutional: Denies: fever, chills Cardiovascular: Reports: chest pain. Denies: palpitations Respiratory: Reports: dyspnea. Denies: cough Gastrointestinal: Reports: nausea, vomiting. Denies: abdominal pain, diarrhea Musculoskeletal: Reports: back pain Chest Pain PMH - Past Medical History Medical history: Reports: coronary artery disease, CVA, diabetes, hyperlipidemia , hypertension, myocardial infarction, renal disease, other Surgical history: Reports: coronary bypass (CABG) Psychiatric history: Reports: no psych history - Social History Smoking Status: Never smoker Alcohol use: Reports: occasionally Drug use: Reports: none Physical Exam Vital Signs Temperature 98.2 F 01/12/18 17:31 Pulse Rate 72 01/12/18 17:31 Respiratory Rate 14 01/12/18 17:31 Blood Pressure 167/99 01/12/18 17:31 O2 Sat by Pulse Oximetry 94 01/12/18 17:31 Temperature 98.2 F 01/12/18 17:35 Pulse Rate 78 01/12/18 17:35 Respiratory Rate 15 01/12/18 17:35 Blood Pressure 167/99 01/12/18 17:35 O2 Sat by Pulse Oximetry 94 01/12/18 17:43 Oxygen Delivery Oxygen Delivery Room Air CONSTITUTIONAL: Well-appearing; well-nourished; A&O X 3, mild distress at this time. HEAD: Normocephalic; atraumatic EYES: PERRL, no scleral icterus NOSE: The nose is normal in appearance without rhinorrhea NECK: No JVD or distended neck veins RESP: Normal chest excursion with respiration; breath sounds clear and equal bilaterally; no wheezes, rhonchi, or rales CARD: Regular rhythm, without murmurs, rub or gallop ABD: Non-distended; non-tender, soft, without rigidity, rebound or guarding,no pulsatile mass CHEST: No pain with palpation SKIN: Normal for age and race; warm and dry without diaphoresis ; no apparent lesions EXTREMITIES: Pulses are 2 plus and equal times 4 extremities, no peripheral edema or calf muscle pain - General General appearance: alert Course - Reevaluation(s) Reevaluation #1: She has an elevated troponin critical high 0.05. Patient has NSTEMI. Consult and cardiology and start patient on heparin Time: 18:33 - Consultations Consultation #1: Consult with Dr. Muñoz of cardiology: Time: 18:37 Vital Signs Temperature 98.2 F 01/12/18 17:31 Pulse Rate 72 01/12/18 17:31 Respiratory Rate 14 01/12/18 17:31 Blood Pressure 167/99 01/12/18 17:31 O2 Sat by Pulse Oximetry 94 01/12/18 17:31 Temperature 98.1 F 01/13/18 07:08 Pulse Rate 71 01/13/18 07:08 Respiratory Rate 16 01/13/18 07:08 Blood Pressure 162/96 01/13/18 07:08 O2 Sat by Pulse Oximetry 96 01/13/18 08:15 Oxygen Delivery Oxygen Delivery Room Air Chest Pain - MDM Narrative Medical decision making narrative: Patient presents chest pain onset of severe quality concerning for ACS/SD, but PE, aortic dissection, primary diagnoses but are on my differential. Patient's lab work shows elevation of WBC 16 0.9, and elevation of troponin 0.05. Dr. Muñoz has been consulted Troponin is elevated at 0.05, with a previous of 1.20 on 29 Dec 2017. Unable to tell if this is a new elevation of decreasing from previous elevation of 1.68. Patient has a heart score of 7. Review of patient's previous admission he was set up for possible cardiac catheterization but that decision change and did not receive a catheter. Patient has persistent chest pain and nitroglycerin drip was initiated. However after initiation of the nitro drip before was started patient's pain dropped to 0. Nitro drip was placed on positive and current plan is for patient to be admitted for NSTEMI. Patient's other lab work is currently at his baseline. Patient's chest x-ray showed no acute abnormalities. Patient's EKG is showed widespread ST depressions 1 AVR and V2 through 6 but are seen on previous EKG taken December. - Lab Data Lab results reviewed: Yes I reviewed the patient's lab results. Lab results narrative: Short CBC 01/12/18 01/12/18 Range/Units 18:41 17:52 WBC 16.9 H 17.0 H (4.3-11.1) K/mcL Hgb 14.6 15.0 (12.9-16.9) g/dL Hct 44.9 45.1 (37.5-50.1) % Plt Count 377 327 (140-400) K/mcL Neutrophils # 15.0 H (1.6-8.9) K/mcL BMP 01/12/18 Range/Units 17:52 Sodium 139 (136-145) mEq/L Potassium 4.8 (3.5-5.1) mEq/L Chloride 106 (98-107) mEq/L Carbon Dioxide 26 (23-29) mEq/L BUN 21 H (6-20) mg/dL Creatinine 1.44 H (0.70-1.30) mg/dL Glucose 135 H (70-105) mg/dL Calcium 9.8 (8.6-10.3) mg/dL Cardiac Enzymes 01/12/18 Range/Units 17:52 Troponin I 0.05 H* (< 0.04) ng/mL Result diagrams: 01/13/18 00:48 01/13/18 00:48 Lab Results 01/12/18 01/12/18 01/12/18 Range/Units 17:52 17:52 17:52 WBC 17.0 H (4.3-11.1) K/mcL RBC 5.24 (4.19-5.50) M/mcL Hgb 15.0 (12.9-16.9) g/dL Hct 45.1 (37.5-50.1) % MCV 86.1 (83.0-100.0) fL MCH 28.6 (28.0-33.3) pg MCHC 33.3 (31.6-35.5) g/dL RDW 12.8 (11.5-14.5) % Plt Count 327 (140-400) K/mcL MPV 9.6 (9.4-12.4) fL Immature Gran % 0.5 (0-4) % Seg Neutrophils % 88.0 % Lymphocytes % 6.9 % Monocytes % 3.8 % Eosinophils % 0.4 % Basophils % 0.4 % Neutrophils # 15.0 H (1.6-8.9) K/mcL Lymphocytes # 1.2 (0.6-4.6) K/mcL Monocytes # 0.7 (0.0-1.3) K/mcL Eosinophils # 0.1 (0.0-0.6) K/mcL Basophils # 0.1 (0.0-0.2) K/mcL PT 11.5 (9.4-12.1) Seconds INR 1.1 APTT 31.5 (26.0-36.0) Seconds Sodium 139 (136-145) mEq/L Potassium 4.8 (3.5-5.1) mEq/L Chloride 106 (98-107) mEq/L Carbon Dioxide 26 (23-29) mEq/L BUN 21 H (6-20) mg/dL Creatinine 1.44 H (0.70-1.30) mg/dL Est GFR ( Amer) > 60 (> 60) Est GFR (Non-Af Amer) 50 L (> 60) BUN/Creatinine Ratio 15 (6-26) Glucose 135 H (70-105) mg/dL Calculated Osmolality 293 (280-300) Calcium 9.8 (8.6-10.3) mg/dL Troponin I (< 0.04) ng/mL 01/12/18 01/12/18 01/12/18 Range/Units 17:52 18:41 18:41 WBC 16.9 H (4.3-11.1) K/mcL RBC 5.22 (4.19-5.50) M/mcL Hgb 14.6 (12.9-16.9) g/dL Hct 44.9 (37.5-50.1) % MCV 86.0 (83.0-100.0) fL MCH 28.0 (28.0-33.3) pg MCHC 32.5 (31.6-35.5) g/dL RDW 12.6 (11.5-14.5) % Plt Count 377 (140-400) K/mcL MPV 9.1 L (9.4-12.4) fL Immature Gran % (0-4) % Seg Neutrophils % % Lymphocytes % % Monocytes % % Eosinophils % % Basophils % % Neutrophils # (1.6-8.9) K/mcL Lymphocytes # (0.6-4.6) K/mcL Monocytes # (0.0-1.3) K/mcL Eosinophils # (0.0-0.6) K/mcL Basophils # (0.0-0.2) K/mcL PT (9.4-12.1) Seconds INR APTT 31.3 (26.0-36.0) Seconds Sodium (136-145) mEq/L Potassium (3.5-5.1) mEq/L Chloride (98-107) mEq/L Carbon Dioxide (23-29) mEq/L BUN (6-20) mg/dL Creatinine (0.70-1.30) mg/dL Est GFR ( Amer) (> 60) Est GFR (Non-Af Amer) (> 60) BUN/Creatinine Ratio (6-26) Glucose (70-105) mg/dL Calculated Osmolality (280-300) Calcium (8.6-10.3) mg/dL Troponin I 0.05 H* (< 0.04) ng/mL - Radiology Data Radiology results reviewed: Yes I reviewed the patient's radiology results. Chest X-Ray 01/12/18 17:32 IMPRESSION: No acute process. Borderline cardiomegaly. D/ / Kanu Durham MD / Kanu Durham MD Interpreting Provider: Kanu Durham MD - EKG Data EKG attestation: Yes I reviewed and interpreted this EKG. ST segment depression in: I, aVL, v2, v3, v4, v5, v6 Interpretation: no acute changes, unchanged when compared to prior tracing (date ) (12/29/17) Heart Score - Score History: Highly Suspicious EKG: Non Specific repolarisation Disturbance Age: 45-65 Risk Factors: Equal/Greater than 3 risk factor or history of atherosclerotic disease Troponin: 1-3x normal limit HEART Score Total: 7
[2018-01-12 18:06] LABS: Basophils # 0.1 K/mcL (0.0-0.2); Basophils % 0.4 %; Eosinophils # 0.1 K/mcL (0.0-0.6); Eosinophils % 0.4 %; Hematocrit 45.1 % (37.5-50.1); Immature Granulocytes % 0.5 % (0-4); Lymphocytes # 1.2 K/mcL (0.6-4.6); Lymphocytes % 6.9 %; Mean Corpuscular HGB Conc 33.3 g/dL (31.6-35.5); Mean Corpuscular Hemoglobin 28.6 pg (28.0-33.3); Mean Corpuscular Volume 86.1 fL (83.0-100.0); Mean Platelet Volume 9.6 fL (9.4-12.4); Monocytes % 3.8 %; Platelet Count 327 K/mcL (140-400); Red Blood Count 5.24 M/mcL (4.19-5.50); Red Cell Distribution Width 12.8 % (11.5-14.5)
[2018-01-12] MEDS: Nitroglycerin 25 MG/250 ML INFUS..BTL IVC SCH (18:09)
[2018-01-12 18:15] LABS: INR 1.1; Prothrombin Time 11.5 Seconds (9.4-12.1)
[2018-01-12 18:17] LABS: Activated Partial Thrombo Time 31.5 Seconds (26.0-36.0)
[2018-01-12 18:19] LABS: BUN/Creatinine Ratio 15 (6-26); Blood Urea Nitrogen 21 mg/dL (6-20); Calcium 9.8 mg/dL (8.6-10.3); Carbon Dioxide 26 mEq/L (23-29); Chloride 106 mEq/L (98-107); Glucose 135 mg/dL (70-105); Osmolality,Calculated 293 (280-300); Potassium 4.8 mEq/L (3.5-5.1); Sodium 139 mEq/L (136-145); eGFR For African Americans > 60 (> 60); eGFR For Non-African Americans 50 (> 60)
[2018-01-12] MEDS ORDERED: *HR* Heparin 5,000 UNIT/ML VIAL IVP ONE (18:30)
[2018-01-12] MEDS ORDERED: *HR* Heparin 5,000 UNIT/ML VIAL IVP PRN (18:30)
[2018-01-12 18:37] LABS: Monocytes # 0.7 K/mcL (0.0-1.3)
[2018-01-12] MEDS: Heparin 25,000 UNIT/500 ML D5W 25,000 UNIT/500 ML BAG IVC SCH (18:46)
[2018-01-12 18:51] LABS: Hematocrit 44.9 % (37.5-50.1); Hemoglobin 14.6 g/dL (12.9-16.9); Mean Corpuscular HGB Conc 32.5 g/dL (31.6-35.5); Mean Platelet Volume 9.1 fL (9.4-12.4); Platelet Count 377 K/mcL (140-400); Red Blood Count 5.22 M/mcL (4.19-5.50); Red Cell Distribution Width 12.6 % (11.5-14.5)
[2018-01-12] MEDS ORDERED: Naloxone 0.4 MG/ML INJ IVP PRN (20:56)
--- NOTE | 2018-01-12 21:07 | Internal Med History&Physical ---
Date of Encounter: 01/12/18 Time of Encounter: 19:00 Assessment and Plan (1) Chest pain Current visit: Yes Status: Acute Typical chest pain. Hx of CAD. Elevated troponin. Consider NSTEMI. Cardio was consulted. - Cont cardiac monitoring - Track totally 3 sets of troponin to see the trend - Cont heparin and NTG drip - NPO from midnight for possible LHC Pt is at high risk b/o heparin and NTG drip, need close monitoring. Qualifiers: Chest pain type: precordial pain Qualified Code(s): R07.2 - Precordial pain (2) CKD (chronic kidney disease) Current visit: No Status: Acute Cr is stable at baseline. Try to avoid nephrotoxic meds. Qualifiers: Chronic kidney disease stage: stage 3 (moderate) Qualified Code(s): N18.3 - Chronic kidney disease, stage 3 (moderate) (3) DVT prophylaxis Current visit: No Status: Acute Pt is on heparin drip (4) Hypertension Current visit: No Status: Acute Cont home meds. Pt is on NTG drip, need closely monitor BP every 30 min Qualifiers: Hypertension type: essential hypertension Qualified Code(s): I10 - Essential (primary) hypertension (5) NSTEMI (non-ST elevated myocardial infarction) Current visit: No Status: Acute Management as above. (6) CAD (coronary artery disease) Current visit: No Status: Chronic Cont home meds, ASA, BB, statin, and imdur Qualifiers: Coronary Disease-Associated Artery/Lesion type: unspecified vessel or lesion type [place] vs. transplanted heart: [place] heart Associated angina: with stable angina Qualified Code(s): I25.118 - Atherosclerotic heart disease of [place] coronary artery with other forms of angina pectoris Internal Medicine - H&P: HPI Chief complaint: chest pain Admitted From: Home Plans for Post Hospital Care: Home History of present illness: Mr. Lujan is a 57 year old male with Hx of CAD s/p CABG, HTN, CKD, present to ER for chest pain. Chest pain started suddenly at 1pm when he was sleeping, located on mid chest and radiated to left arm, sharp, 9/10. Pt has SOB, nausea, and vomited 3 times, vomiting are clear liquid. Pt also has diaphoresis. He took NTG SL which partial relieved the pain. Pain subside when he got to ER, lasted for about 4 hours. In ER, EKG shows multiple leads ST depression and T wave inversion (I, AVL, V3-V6), troponin positive. Cardio consulted and heparin and NTG drip started per cardio. When I saw pt, he is pain free and in NAD. Past Med Surg Social Fam HX - Past Medical History Medical history: coronary artery disease, CVA, diabetes, hyperlipidemia, hypertension, myocardial infarction, renal disease, other Psychiatric history: no psych history - Past Surgical History Surgical History: coronary bypass (CABG) - Social History Smoking Status: Never smoker Smokeless Tobacco Status: No Alcohol use: occasionally Drug use: none - Family History Mother Living Status: Hx Family Cancer: Yes (Lung) Father Living Status: Hx Family Cardiac Disorders: Yes Hx Family Respiratory Disorders: No Hx Family Cancer: No Hx Family GI Disorders: No Hx Family Endocrine Disorder: Yes (DM) Hx Family Neuromuscular Disorders: No Hx Family Neurologic Disorders: No Hx Family HEENT Disorders: No Hx Family Autoimmune Disorders: No Internal Medicine - H&P: Meds Amlodipine Besylate 10 mg PO DAILY 12/29/17 [History] Aspirin [Lo-Dose Aspirin EC] 81 mg PO DAILY 12/29/17 [History] Atorvastatin [Lipitor] 40 mg PO HS 12/29/17 [History] Lisinopril [Zestril] 40 mg PO DAILY 12/29/17 [History] Metoprolol Tartrate [Lopressor] 100 mg PO BID 12/29/17 [History] Spironolactone [Aldactone] 50 mg PO DAILY 12/29/17 [History] Isosorbide MONOnitrate (24 HR) [Imdur] 30 mg PO DAILY #30 tab.er.24h 12/30/17 [ Rx] Oxycodone HCl/Acetaminophen [Endocet 10-325 mg Tablet] 1 tab PO QID PRN [History] Pregabalin [Lyrica] 200 mg PO BID 12/30/17 [History] 3 Allergy/AdvReac Type Severity Reaction Status Date / Time tramadol [From Ultram] Allergy See Verified 08/20/15 22:09 Comments All Systems PM: A 10-system review of systems was performed and is negative for pertinent findings except as documented above in the HPI. - Constitutional Vitals: Temp Pulse Resp BP Pulse Ox 97.9 F 68 17 146/88 97 01/12/18 20:50 01/12/18 20:50 01/12/18 20:50 01/12/18 20:50 01/12/18 20:50 General appearance: Present: A&O X 3, no acute distress, answers questions appropriately - Head Head exam: Present: atraumatic, normocephalic - Eye Eye exam: Present: PERRL, conjuntiva pink, sclera anicteric Pupils: Present: PERRL - Neck Neck exam general surgery: Present: supple, trachea midline. Absent: lymphadenopathy - Respiratory Respiratory exam: Present: CTAB. Absent: accessory muscle use, rales, rhonchi, wheezes - Cardiovascular Cardiovascular exam: Present: RRR, +S1, +S2. Absent: diastolic murmur, gallop, rubs, systolic murmur - GI/Abdominal GI/Abdominal exam: Present: normal bowel sounds, soft, no peritoneal signs. Absent: distended, tenderness - Extremities Exam Extremities exam: Present: warm, radial pulses palpable and symmetrical. Absent : calf tenderness, cyanotic, pedal edema - Neurological Exam Neurological exam: Present: CN II-XII intact, oriented X3, no focal deficits. Absent: pronater drift, facial droop, speech deficit - Skin Skin exam: Present: dry, intact Internal Med - H&P Results - Labs CBC & Chem 7: 01/12/18 18:41 01/12/18 17:52 - EKG Data -: EKG Interpreted by Myself EKG shows normal: sinus rhythm Rate: normal (ST depression and T inversion on I, AVL, V3-V6)
[2018-01-12] MEDS: Metoprolol 100 MG TABLET PO SCH (22:43)
[2018-01-12] MEDS: Pregabalin 50 MG CAPSULE PO SCH (22:43)
[2018-01-13 01:01] LABS: Basophils # 0.1 K/mcL (0.0-0.2); Basophils % 0.5 %; Eosinophils # 0.2 K/mcL (0.0-0.6); Eosinophils % 1.7 %; Hematocrit 43.4 % (37.5-50.1); Hemoglobin 14.3 g/dL (12.9-16.9); Immature Granulocytes % 0.4 % (0-4); Lymphocytes # 2.8 K/mcL (0.6-4.6); Lymphocytes % 20.2 %; Mean Corpuscular HGB Conc 32.9 g/dL (31.6-35.5); Mean Corpuscular Hemoglobin 28.3 pg (28.0-33.3); Mean Corpuscular Volume 85.9 fL (83.0-100.0); Monocytes % 6.9 %; Neutrophils # 9.7 K/mcL (1.6-8.9); Platelet Count 371 K/mcL (140-400); Red Blood Count 5.05 M/mcL (4.19-5.50); Red Cell Distribution Width 12.8 % (11.5-14.5); Segmented Neutrophils % 70.3 %
[2018-01-13 01:17] LABS: Calcium 9.4 mg/dL (8.6-10.3); Magnesium 2.2 mg/dL (1.6-2.6)
[2018-01-13] MEDS: *HR* Heparin 5,000 UNIT/ML VIAL IVP PRN ×2 (02:02→14:11)
[2018-01-13] MEDS: Pregabalin 50 MG CAPSULE PO SCH ×2 (07:57→20:52)
[2018-01-13] MEDS: Aspirin Enteric Coated 81 MG Tablet PO SCH (07:57)
[2018-01-13] MEDS: Metoprolol 100 MG TABLET PO SCH (07:57)
[2018-01-13] MEDS: Isosorbide MONOnitrate (24 HR) 30 MG TAB.ER.24H PO SCH (07:58)
--- NOTE | 2018-01-13 08:18 | Internal Med Progress Note ---
<ReginaldKelvin jon - Last Filed: 01/13/18 10:13> Date of Encounter: 01/13/18 Time of Encounter: 08:13 - Assessment and plan (1) NSTEMI (non-ST elevated myocardial infarction) Current Visit: No Status: Acute Assessment and plan: Patient arrived with symptoms of typical chest pain. EKG consistent with the wave inversions and ST depressions. Patient currently chest pain free. Chest x-ray was unremarkable. Troponins: .05, .42, 1.68 Plan: NPO. Appreciate cardiology input. Continue heparin GTT continue aspirin, statin, holding beta kay due to possible symptomatic bradycardia (2) Near syncope Current Visit: Yes Status: Acute Assessment and plan: patient has dizziness, bradycardia overnight with HR down to the 50s that has not been documented. consider possible symptomatic bradycardia Plan: orthostatic vitals IVF total 1L to infuse hold beta kay for now. hold BP meds (3) Elevated troponin I level Current Visit: No Status: Acute Assessment and plan: as above (4) CAD (coronary artery disease) Current Visit: No Status: Chronic Assessment and plan: s/p CABG in 2009. Plan: continue ASA, statin Qualifiers: Coronary Disease-Associated Artery/Lesion type: unspecified vessel or lesion type [place] vs. transplanted heart: [place] heart Associated angina: with stable angina Qualified Code(s): I25.118 - Atherosclerotic heart disease of [place] coronary artery with other forms of angina pectoris (5) CKD (chronic kidney disease) Current Visit: No Status: Acute Assessment and plan: Patient's renal function is about baseline. Continue to monitor. Qualifiers: Chronic kidney disease stage: stage 3 (moderate) Qualified Code(s): N18.3 - Chronic kidney disease, stage 3 (moderate) (6) Morbid obesity Current Visit: No Status: Acute Assessment and plan: Lifestyle modifications advised (7) Diabetes mellitus type 2 in obese Current Visit: No Status: Chronic Assessment and plan: History of type II diabetes patient states that this is diet controlled, and he is not on any medications at home continue to monitor Plan: sliding scale insulin (8) DVT prophylaxis Current Visit: No Status: Acute Assessment and plan: Continue heparin GTT - Subjective Interval history: 57-year-old male evaluated that bedside. Patient denies nausea, vomiting, diarrhea, fever, chills, chest pain, shortness of breath. He states that his symptoms started yesterday when he was in an argument with a girl. So states that his symptoms were similar to the last time he had chest pain. His symptoms are consistent with typical chest pain. He denies any new problems today. - Constitutional Vitals: Temp Pulse Resp BP Pulse Ox 98.1 F 71 16 162/96 96 01/13/18 07:08 01/13/18 07:08 01/13/18 07:08 01/13/18 07:08 01/13/18 07:08 General appearance: Present: A&O X 3, pleasant, no acute distress, answers questions appropriately - Head Head exam: Present: atraumatic, normocephalic - Neck Neck exam general surgery: Present: supple, trachea midline - Respiratory Respiratory exam: Present: CTAB - Cardiovascular Cardiovascular exam: Present: RRR, +S1, +S2 - GI/Abdominal GI/Abdominal exam: Present: distended, normal bowel sounds, soft. Absent: tenderness - Extremities Exam Extremities exam: Absent: cyanotic, pedal edema - Neurological Exam Neurological exam: Present: alert, oriented X3, no focal deficits - Psychiatric Psychiatric exam: Present: normal affect, normal mood - Skin Skin exam: Absent: cyanosis, rash Internal Medicine: Result - Labs CBC & Chem 7: 01/13/18 00:48 01/13/18 00:48 Labs: Short CBC 01/13/18 Range/Units 00:48 WBC 13.7 H (4.3-11.1) K/mcL Hgb 14.3 (12.9-16.9) g/dL Hct 43.4 (37.5-50.1) % Plt Count 371 (140-400) K/mcL Neutrophils # 9.7 H (1.6-8.9) K/mcL BMP 01/13/18 00:48 Sodium 139 Potassium 4.0 Chloride 106 Carbon Dioxide 27 BUN 23 H Creatinine 1.56 H Glucose 136 H Calcium 9.4 Cardiac Enzymes 01/12/18 01/13/18 Range/Units 21:10 02:26 Troponin I 0.42 H* 1.68 H* (< 0.04) ng/mL - ABG Interpretation ABG results: PT/INR, D-dimer PT 11.5 Seconds (9.4-12.1) 01/12/18 17:52 Consult Discharge Plan - Plan Referrals: Mauro Serrano [Primary Care Provider] - <Jose Keenan H - Last Filed: 01/13/18 10:16> Date of Encounter: 01/13/18 - Constitutional Vitals: Temp Pulse Resp BP Pulse Ox 98.1 F 71 16 162/96 96 01/13/18 07:08 01/13/18 07:08 01/13/18 07:08 01/13/18 07:08 01/13/18 08:15 Internal Medicine: Result - Labs CBC & Chem 7: 01/13/18 00:48 01/13/18 00:48 Labs: Short CBC 01/13/18 Range/Units 00:48 WBC 13.7 H (4.3-11.1) K/mcL Hgb 14.3 (12.9-16.9) g/dL Hct 43.4 (37.5-50.1) % Plt Count 371 (140-400) K/mcL Neutrophils # 9.7 H (1.6-8.9) K/mcL BMP 01/13/18 00:48 Sodium 139 Potassium 4.0 Chloride 106 Carbon Dioxide 27 BUN 23 H Creatinine 1.56 H Glucose 136 H Calcium 9.4 Cardiac Enzymes 01/12/18 01/13/18 Range/Units 21:10 02:26 Troponin I 0.42 H* 1.68 H* (< 0.04) ng/mL - ABG Interpretation ABG results: PT/INR, D-dimer PT 11.5 Seconds (9.4-12.1) 01/12/18 17:52 - Attending Attestation Non-STEMI Continue heparin drip, cardiology to possibly perform a left cardiac catheterization Near syncope possibly secondary to symptomatic bradycardia or orthostatic hypotension Hold beta blockers, check orthostatics, stop amlodipine, hold lisinopril Start IV fluids, fall precautions I examined this patient and my medical decision-making was reviewed with the Resident Physician. I agree with the documented findings, disposition and treatment plan as described except to the extent set forth below.
[2018-01-13] MEDS ORDERED: amLODIPine 5 MG TABLET PO SCH (09:00)
[2018-01-13] MEDS ORDERED: Lisinopril 20 MG TABLET PO SCH (09:00)
[2018-01-13] MEDS ORDERED: *HR* Atropine Sulfate 1 MG/10 ML SYRINGE ONE (09:44)
[2018-01-13] MEDS ORDERED: Ondansetron 4 MG/2 ML VIAL IVP ONE (09:57)
[2018-01-13] MEDS ORDERED: Ondansetron 4 MG/2 ML VIAL IVP PRN (09:58)
[2018-01-13] MEDS ORDERED: 0.9 % Sodium Chloride 1,000 ML IVC SCH (10:00)
[2018-01-13] MEDS ORDERED: *HR* Dextrose 50 % in Water (Syg) 50 ML SYRINGE IVP PRN (10:14)
[2018-01-13] MEDS ORDERED: D5% in Water 1,000 ML IVC PRN (10:14)
[2018-01-13] MEDS ORDERED: Dextrose Gel 15 GM/37.5 ML TUBE PO PRN ×2 (10:14)
--- NOTE | 2018-01-13 11:12 | Cardiology Consult Note ---
Date of Encounter: 01/13/18 Time of Encounter: 11:04 Assessment and Plan (1) NSTEMI (non-ST elevated myocardial infarction) Current Visit: No Status: Acute Patient presents with CP after "stress" at home. Chest pain overnight and this AM. Chronic ECG changes noted. Elevated troponin. Presentation c/w ACS - NSTEMI. Recommend continue aspirin/statin/bb/lisinopril therapy. Resume home BB, will lower dose given current HR 60s. Check limted TTE. R/B/A to a [facility] discussed. He is agreeable. Plan for AM unless symptoms develop. NTG held this morning when he got lighteaded, possible orthostatic event with standing worsened by anti-HTN medications. All questions answered. Patient agreeable to this plan. (2) CAD (coronary artery disease) Current Visit: No Status: Chronic Qualifiers: Coronary Disease-Associated Artery/Lesion type: unspecified vessel or lesion type [place] vs. transplanted heart: [place] heart Associated angina: with stable angina Qualified Code(s): I25.118 - Atherosclerotic heart disease of [place] coronary artery with other forms of angina pectoris Discussion w patient/family: The assessment and plan as outlined above was discussed with the patient and/or family members who expressed understanding and agreement. All questions were answered. Thank you for involving us in the care of your patient. Please call with any questions. History of Present Illness Consult date: 01/13/18 Requesting physician: Carole Sweet Consult reason: CP Chief complaint: CP History of present illness: Mr. Lujan is a 57 year old male with a history of CAD, prior reported 2V CABG. Cormorbities include HTN, CKD. Presented to ER after CP developed when upset. ECG demonstrates similar findings to previous - sinus rhythm, anterolateral ST- T changes suggestive of ischemia. Reports chest pain free overnight. Hemodynamics have been stable. Patient stood up to go to bathroom this morning, when he got lightheaded, near syncope, nauseated. After getting back in bed, BP 100s systolic. Upon my arrival, patient reports back to baseline. No chest pain since admission. Of note, patient discharged 12/30 after evalaution for chest pain. [facility] recommended, but patient declined and left AMA. TTE 12/30/2017: LVEF 60%. Normal LV, RV size and function. No VHD. Troponin 0.05, 0.42, 1.68, 1.71. Cr 1.56. Similiar to baseline. Past Med Surg Social Fam HX - Past Medical History Medical history: coronary artery disease, CVA, diabetes, hyperlipidemia, hypertension, myocardial infarction, renal disease, other Psychiatric history: no psych history - Past Surgical History Surgical History: coronary bypass (CABG) - Social History Smoking Status: Never smoker Smokeless Tobacco Status: No Alcohol use: occasionally Drug use: none - Family History Mother Living Status: Hx Family Cancer: Yes (Lung) Father Living Status: Hx Family Cardiac Disorders: Yes Hx Family Respiratory Disorders: No Hx Family Cancer: No Hx Family GI Disorders: No Hx Family Endocrine Disorder: Yes (DM) Hx Family Neuromuscular Disorders: No Hx Family Neurologic Disorders: No Hx Family HEENT Disorders: No Hx Family Autoimmune Disorders: No Medications and Allergies Amlodipine Besylate 10 mg PO DAILY 12/29/17 [History] Aspirin [Lo-Dose Aspirin EC] 81 mg PO DAILY 12/29/17 [History] Atorvastatin [Lipitor] 40 mg PO HS 12/29/17 [History] Lisinopril [Zestril] 40 mg PO DAILY 12/29/17 [History] Metoprolol Tartrate [Lopressor] 100 mg PO BID 12/29/17 [History] Spironolactone [Aldactone] 50 mg PO DAILY 12/29/17 [History] Isosorbide MONOnitrate (24 HR) [Imdur] 30 mg PO DAILY #30 tab.er.24h 12/30/17 [ Rx] Oxycodone HCl/Acetaminophen [Endocet 10-325 mg Tablet] 1 tab PO QID PRN [History] Pregabalin [Lyrica] 200 mg PO BID 12/30/17 [History] 3 Allergy/AdvReac Type Severity Reaction Status Date / Time tramadol [From Ultram] Allergy See Verified 08/20/15 22:09 Comments All Systems Review: A 10-system review of systems was performed and is negative for pertinent findings except as documented above in the HPI. - Cardiovascular Cardiovascular: as per HPI, chest pain at rest, lightheadedness - Gastrointestinal Gastrointestinal: nausea Physical Examination Vital Signs, Last 4 Hours Temp Pulse Resp BP Pulse Ox 01/13/18 10:20 66 104/68 01/13/18 08:15 96 01/13/18 07:08 98.1 F 71 16 162/96 96 General: Conversant, No Apparent Distress HEENT: Atraumatic, Normocephaly, Mucus Membranes Moist Neck: No JVD, Normal carotid pulses Cardiac: Other (Distant, regular. ) Lungs: Normal Breath Sounds, No Wheeze, Rales, Rhonchi Neuro: Alert and responsive, No focal deficits noted Abdomen: Soft, Non-Tender, Other (Obese) Skin: No rashes noted on visualized skin Musculoskeletal: No Chest Wall Tenderness Extremities: No Clubbing, No Cyanosis, No Edema Results 01/13/18 00:48 01/13/18 00:48 Lab Results 01/12/18 01/13/18 01/13/18 21:10 00:48 00:48 WBC 13.7 H Hgb 14.3 Hct 43.4 Plt Count 371 APTT Sodium 139 Potassium 4.0 Chloride 106 Carbon Dioxide 27 BUN 23 H Creatinine 1.56 H Glucose 136 H Calcium 9.4 Magnesium 2.2 Troponin I 0.42 H* 01/13/18 01/13/18 01/13/18 00:48 02:26 08:38 WBC Hgb Hct Plt Count APTT 37.8 H 30.7 Sodium Potassium Chloride Carbon Dioxide BUN Creatinine Glucose Calcium Magnesium Troponin I 1.68 H* 01/13/18 10:22 WBC Hgb Hct Plt Count APTT 33.7 Sodium Potassium Chloride Carbon Dioxide BUN Creatinine Glucose Calcium Magnesium Troponin I - Imaging and Cardiology Echo: report reviewed - EKG Interpretation EKG results cardiology: personally reviewed Consult Discharge Plan - Plan Referrals: Mauro Serrano [Primary Care Provider] -
[2018-01-13] MEDS: Insulin LISPRO 300 UNITS/3 ML VIAL SQ SCH ×3 (14:17→20:52)
[2018-01-13] MEDS: Heparin 25,000 UNIT/500 ML D5W 25,000 UNIT/500 ML BAG IVC SCH (14:42)
[2018-01-14 00:54] LABS: Basophils # 0.1 K/mcL (0.0-0.2); Basophils % 0.7 %; Eosinophils # 0.5 K/mcL (0.0-0.6); Eosinophils % 3.5 %; Hematocrit 42.7 % (37.5-50.1); Hemoglobin 13.5 g/dL (12.9-16.9); Immature Granulocytes % 0.6 % (0-4); Lymphocytes # 3.5 K/mcL (0.6-4.6); Mean Corpuscular HGB Conc 31.6 g/dL (31.6-35.5); Mean Corpuscular Hemoglobin 28.1 pg (28.0-33.3); Mean Corpuscular Volume 88.8 fL (83.0-100.0); Mean Platelet Volume 9.6 fL (9.4-12.4); Monocytes # 1.2 K/mcL (0.0-1.3); Monocytes % 8.8 %; Neutrophils # 7.7 K/mcL (1.6-8.9); Platelet Count 343 K/mcL (140-400); Red Blood Count 4.81 M/mcL (4.19-5.50); Red Cell Distribution Width 12.9 % (11.5-14.5); Segmented Neutrophils % 59.4 %
[2018-01-14 01:14] LABS: Calcium 8.8 mg/dL (8.6-10.3); Potassium 4.1 mEq/L (3.5-5.1)
[2018-01-14] MEDS: Heparin 25,000 UNIT/500 ML D5W 25,000 UNIT/500 ML BAG IVC SCH ×2 (05:35→20:29)
[2018-01-14] MEDS: Nitroglycerin 25 MG/250 ML INFUS..BTL IVC SCH (08:42)
[2018-01-14] MEDS: Isosorbide MONOnitrate (24 HR) 30 MG TAB.ER.24H PO SCH (08:49)
[2018-01-14] MEDS: Aspirin Enteric Coated 81 MG Tablet PO SCH (08:49)
[2018-01-14] MEDS: Insulin LISPRO 300 UNITS/3 ML VIAL SQ SCH ×4 (08:49→20:29)
[2018-01-14] MEDS: Pregabalin 50 MG CAPSULE PO SCH ×2 (08:49→20:28)
--- NOTE | 2018-01-14 10:23 | Internal Med Progress Note ---
<Aurelio Alanis - Last Filed: 01/14/18 10:35> Date of Encounter: 01/14/18 Time of Encounter: 10:21 - Assessment and plan (1) NSTEMI (non-ST elevated myocardial infarction) Current Visit: Yes Status: Acute Assessment and plan: Patient currently chest pain free. Chest x-ray was unremarkable. Troponins: .05, .42, 1.68, 1.71 Plan: NPO. Likely [facility] today Continue heparin continue aspirin and statin Cardiology is consulted and following (2) Elevated troponin I level Current Visit: Yes Status: Acute Assessment and plan: Current troponin 1.71 (3) CAD (coronary artery disease) Current Visit: Yes Status: Chronic Assessment and plan: s/p CABG in 2009. Plan: [facility] today continue ASA, statin Qualifiers: Coronary Disease-Associated Artery/Lesion type: unspecified vessel or lesion type [place] vs. transplanted heart: [place] heart Associated angina: with stable angina Qualified Code(s): I25.118 - Atherosclerotic heart disease of [place] coronary artery with other forms of angina pectoris (4) Diabetes mellitus type 2 in obese Current Visit: No Status: Chronic Assessment and plan: History of type II diabetes continue to monitor sliding scale insulin (5) Morbid obesity Current Visit: No Status: Acute Assessment and plan: Lifestyle modifications advised (6) Near syncope Current Visit: Yes Status: Acute Assessment and plan: Patient denies any symptoms at this time. (7) DVT prophylaxis Current Visit: No Status: Acute Assessment and plan: Continue heparin GTT - Subjective Interval history: Patient states that he is doing well today. Patient denies any chest pain at this time. States that he feels like his chest pain was due to stress related to an argument that he had with a friend. Patient states that he is still mildly short of breath requiring oxygen therapy here in the hospital. Patient denies any home oxygen use. - Constitutional Vitals: Temp Pulse Resp BP Pulse Ox 98.0 F 60 15 115/63 97 01/14/18 06:19 01/14/18 06:19 01/14/18 06:19 01/14/18 06:19 01/14/18 08:00 General appearance: Present: A&O X 3, pleasant, no acute distress, answers questions appropriately - Head Head exam: Present: atraumatic, normocephalic - Neck Neck exam general surgery: Present: full ROM, normal inspection, supple, trachea midline - Respiratory Respiratory exam: Present: CTAB. Absent: accessory muscle use, rales, rhonchi, wheezes - Cardiovascular Cardiovascular exam: Present: RRR, +S1, +S2. Absent: diastolic murmur, gallop, rubs, systolic murmur - GI/Abdominal GI/Abdominal exam: Present: normal bowel sounds, soft, no peritoneal signs. Absent: distended, tenderness - Extremities Exam Extremities exam: Present: warm. Absent: cyanotic, pedal edema - Neurological Exam Neurological exam: Present: alert, oriented X3, no focal deficits. Absent: facial droop, speech deficit - Psychiatric Psychiatric exam: Present: normal affect, normal mood - Skin Skin exam: Present: dry, intact, warm Internal Medicine: Result - Labs CBC & Chem 7: 01/14/18 00:04 01/14/18 00:04 Labs: Short CBC 01/14/18 Range/Units 00:04 WBC 13.0 H (4.3-11.1) K/mcL Hgb 13.5 (12.9-16.9) g/dL Hct 42.7 (37.5-50.1) % Plt Count 343 (140-400) K/mcL Neutrophils # 7.7 (1.6-8.9) K/mcL BMP 01/14/18 00:04 Sodium 139 Potassium 4.1 Chloride 107 Carbon Dioxide 26 BUN 31 H Creatinine 1.95 H Glucose 102 Calcium 8.8 Cardiac Enzymes 01/13/18 Range/Units 10:22 Troponin I 1.71 H* (< 0.04) ng/mL - ABG Interpretation ABG results: PT/INR, D-dimer PT 11.5 Seconds (9.4-12.1) 01/12/18 17:52 Consult Discharge Plan - Plan Referrals: Mauro Serrano [Primary Care Provider] - <Jose Keenan H - Last Filed: 01/14/18 10:36> Date of Encounter: 01/14/18 - Constitutional Vitals: Temp Pulse Resp BP Pulse Ox 98.0 F 60 15 115/63 97 01/14/18 06:19 01/14/18 06:19 01/14/18 06:19 01/14/18 06:19 01/14/18 08:00 Internal Medicine: Result - Labs CBC & Chem 7: 01/14/18 00:04 01/14/18 00:04 Labs: Short CBC 01/14/18 Range/Units 00:04 WBC 13.0 H (4.3-11.1) K/mcL Hgb 13.5 (12.9-16.9) g/dL Hct 42.7 (37.5-50.1) % Plt Count 343 (140-400) K/mcL Neutrophils # 7.7 (1.6-8.9) K/mcL BMP 01/14/18 00:04 Sodium 139 Potassium 4.1 Chloride 107 Carbon Dioxide 26 BUN 31 H Creatinine 1.95 H Glucose 102 Calcium 8.8 Cardiac Enzymes 01/13/18 Range/Units 10:22 Troponin I 1.71 H* (< 0.04) ng/mL - ABG Interpretation ABG results: PT/INR, D-dimer PT 11.5 Seconds (9.4-12.1) 01/12/18 17:52 - Attending Attestation Acute chronic renal failure, history of chronic kidney disease stage III I examined this patient and my medical decision-making was reviewed with the Resident Physician. I agree with the documented findings, disposition and treatment plan as described except to the extent set forth below.
--- NOTE | 2018-01-14 10:50 | Cardiology Progress Note ---
Date of Encounter: 01/14/18 Time of Encounter: 10:45 Assessment and Plan (1) NSTEMI (non-ST elevated myocardial infarction) Current Visit: Yes Status: Acute Patient presents with CP after "stress" at home. Chronic ECG changes noted. Elevated troponin. Presentation c/w ACS - NSTEMI. Recommend continue aspirin/statin/bb/lisinopril therapy. R/B/A to a [facility] discussed. He is agreeable. Plan was to perform a cardiac catheterization today, but creatinine is higher than patient's baseline. Since he is currently chest pain-free, we have decided to give hydration today in preparation for diagnostic left heart catheterization tomorrow. Patient agreeable to this plan. (2) CAD (coronary artery disease) Current Visit: Yes Status: Chronic Qualifiers: Coronary Disease-Associated Artery/Lesion type: unspecified vessel or lesion type [place] vs. transplanted heart: [place] heart Associated angina: with stable angina Qualified Code(s): I25.118 - Atherosclerotic heart disease of [place] coronary artery with other forms of angina pectoris Discussion w patient/family: The assessment and plan as outlined above was discussed with the patient and/or family members who expressed understanding and agreement. All questions were answered. Thank you for involving us in the care of your patient. Please call with any questions. Subjective Principal diagnosis: Chest pain Interval history: Referral, patient reports he is doing well. No chest pain reported. Creatinine has worsened since admission, 1.95 today, which is higher than the patient's baseline of 1.3-1.6. Objective Vital Signs, Last 4 Hours Pulse Ox 01/14/18 08:00 97 General: Conversant, No Apparent Distress HEENT: Atraumatic, Normocephaly, Mucus Membranes Moist Neck: No JVD, Normal carotid pulses Cardiac: Reg Rate and Rhythm, Normal S1 and S2, No Murmur Lungs: Normal Breath Sounds, No Wheeze, Rales, Rhonchi Neuro: Alert and responsive, No focal deficits noted Abdomen: Soft, Non-Tender, Other (Obese) Skin: No rashes noted on visualized skin Musculoskeletal: No Chest Wall Tenderness Extremities: No Clubbing, No Cyanosis, No Edema Results 01/14/18 00:04 01/14/18 00:04 Lab Results 01/13/18 01/13/18 01/14/18 10:22 18:11 00:04 WBC 13.0 H Hgb 13.5 Hct 42.7 Plt Count 343 APTT 72.7 H D Sodium Potassium Chloride Carbon Dioxide BUN Creatinine Glucose Calcium Troponin I 1.71 H* 01/14/18 01/14/18 00:04 00:04 WBC Hgb Hct Plt Count APTT 63.8 H Sodium 139 Potassium 4.1 Chloride 107 Carbon Dioxide 26 BUN 31 H Creatinine 1.95 H Glucose 102 Calcium 8.8 Troponin I - Imaging and Cardiology Echo: report reviewed - EKG Interpretation EKG results cardiology: personally reviewed Consult Discharge Plan - Plan Referrals: Mauro Serrano [Primary Care Provider] -
[2018-01-14] MEDS: 0.9 % Sodium Chloride 1,000 ML IVC SCH (11:54)
[2018-01-15] MEDS: 0.9 % Sodium Chloride 1,000 ML IVC SCH ×2 (00:55→13:37)
[2018-01-15 01:35] LABS: Basophils # 0.1 K/mcL (0.0-0.2); Basophils % 0.5 %; Eosinophils # 0.4 K/mcL (0.0-0.6); Eosinophils % 3.7 %; Hematocrit 43.1 % (37.5-50.1); Hemoglobin 13.7 g/dL (12.9-16.9); Immature Granulocytes % 0.7 % (0-4); Lymphocytes # 2.6 K/mcL (0.6-4.6); Lymphocytes % 24.3 %; Mean Corpuscular HGB Conc 31.8 g/dL (31.6-35.5); Mean Corpuscular Hemoglobin 28.1 pg (28.0-33.3); Mean Corpuscular Volume 88.3 fL (83.0-100.0); Mean Platelet Volume 9.3 fL (9.4-12.4); Monocytes # 0.9 K/mcL (0.0-1.3); Monocytes % 8.5 %; Neutrophils # 6.6 K/mcL (1.6-8.9); Platelet Count 302 K/mcL (140-400); Red Blood Count 4.88 M/mcL (4.19-5.50); Red Cell Distribution Width 12.5 % (11.5-14.5); Segmented Neutrophils % 62.3 %
[2018-01-15 01:50] LABS: Calcium 9.1 mg/dL (8.6-10.3); Potassium 4.2 mEq/L (3.5-5.1)
[2018-01-15 02:15] LABS: Heparin anti-factor XA UFH 0.64 IU/mL (0.30-0.70)
[2018-01-15] MEDS: Aspirin Enteric Coated 81 MG Tablet PO SCH (07:56)
[2018-01-15] MEDS: Isosorbide MONOnitrate (24 HR) 30 MG TAB.ER.24H PO SCH (07:56)
[2018-01-15] MEDS: Insulin LISPRO 300 UNITS/3 ML VIAL SQ SCH ×4 (07:57→23:00)
--- NOTE | 2018-01-15 09:57 | Internal Med Progress Note ---
Date of Encounter: 01/15/18 Time of Encounter: 09:57 - Assessment and plan (1) CAD (coronary artery disease) Current Visit: Yes Status: Chronic Assessment and plan: s/p CABG in 2009. [facility] today continue ASA, statin Qualifiers: Coronary Disease-Associated Artery/Lesion type: unspecified vessel or lesion type [place] vs. transplanted heart: [place] heart Associated angina: with stable angina Qualified Code(s): I25.118 - Atherosclerotic heart disease of [place] coronary artery with other forms of angina pectoris (2) CKD (chronic kidney disease) Current Visit: Yes Status: Chronic Assessment and plan: Patient's renal function is about baseline. Continue to monitor. Qualifiers: Chronic kidney disease stage: stage 3 (moderate) Qualified Code(s): N18.3 - Chronic kidney disease, stage 3 (moderate) (3) Diabetes mellitus type 2 in obese Current Visit: Yes Status: Chronic Assessment and plan: History of type II diabetes continue to monitor sliding scale insulin (4) Hypertension Current Visit: Yes Status: Chronic Assessment and plan: continue current meds Qualifiers: Hypertension type: essential hypertension Qualified Code(s): I10 - Essential (primary) hypertension (5) Morbid obesity Current Visit: Yes Status: Chronic Assessment and plan: Lifestyle modifications advised (6) Near syncope Current Visit: Yes Status: Acute Assessment and plan: Patient denies any symptoms at this time. (7) NSTEMI (non-ST elevated myocardial infarction) Current Visit: Yes Status: Acute Assessment and plan: Patient currently chest pain free. Chest x-ray was unremarkable. Troponins: .05, .42, 1.68, 1.71 NPO. Likely [facility] today Continue heparin continue aspirin and statin Cardiology is consulted and following - Subjective Interval history: Seen and evaluated at bedside No new complains Awaiting cath. Denies SOB, CP, abdominal or urinary symptoms - Constitutional Vitals: Temp Pulse Resp BP Pulse Ox 98.1 F 77 18 154/96 94 01/15/18 07:26 01/15/18 07:26 01/15/18 07:26 01/15/18 07:26 01/15/18 07:26 General appearance: Present: A&O X 3, morbidly obese, pleasant, no acute distress, answers questions appropriately - Head Head exam: Present: atraumatic, normocephalic - Eye Eye exam: Present: PERRL, conjuntiva pink, sclera anicteric Pupils: Present: PERRL - Neck Neck exam general surgery: Present: supple, trachea midline. Absent: lymphadenopathy - Respiratory Respiratory exam: Present: CTAB. Absent: accessory muscle use, rales, rhonchi, wheezes - Cardiovascular Cardiovascular exam: Present: RRR, +S1, +S2. Absent: diastolic murmur, gallop, rubs, systolic murmur - GI/Abdominal GI/Abdominal exam: Present: normal bowel sounds, soft, no peritoneal signs. Absent: distended, tenderness - Extremities Exam Extremities exam: Present: warm, radial pulses palpable and symmetrical. Absent : calf tenderness, cyanotic, pedal edema - Neurological Exam Neurological exam: Present: alert, CN II-XII intact, oriented X3, no focal deficits. Absent: pronater drift, facial droop, speech deficit - Skin Skin exam: Present: dry, intact Internal Medicine: Result - Labs CBC & Chem 7: 01/15/18 01:19 01/15/18 01:19 Labs: Short CBC 01/15/18 Range/Units 01:19 WBC 10.6 (4.3-11.1) K/mcL Hgb 13.7 (12.9-16.9) g/dL Hct 43.1 (37.5-50.1) % Plt Count 302 (140-400) K/mcL Neutrophils # 6.6 (1.6-8.9) K/mcL BMP 01/15/18 01:19 Sodium 142 Potassium 4.2 Chloride 110 H Carbon Dioxide 28 BUN 22 H Creatinine 1.47 H Glucose 105 Calcium 9.1 Cardiac Enzymes 01/14/18 Range/Units 13:09 Troponin I 0.66 H* (< 0.04) ng/mL - ABG Interpretation ABG results: PT/INR, D-dimer PT 11.5 Seconds (9.4-12.1) 01/12/18 17:52 Consult Discharge Plan - Plan Referrals: Mauro Serrano [Primary Care Provider] -
[2018-01-15] MEDS: Pregabalin 50 MG CAPSULE PO SCH (11:14)
--- NOTE | 2018-01-15 11:17 | Event Note ---
Date of Encounter: 01/15/18 Time of Encounter: 11:14 Patient seen and examined earlier this morning. Overall, reports he is feeling well. Creatinine back to baseline - 1.4. Risks, benefits, and alternatives to cardiac catheterization again discussed. Patient agreeable and wishes to proceed. Thanks, Felix Muñoz DO, FACC
[2018-01-15] MEDS ORDERED: Nitroglycerin 1,000 MCG/10 ML VIAL IV ONE ×2 (13:20→16:50)
[2018-01-15] MEDS ORDERED: ISOVUE-370 200 ML INFUS..BTL IV ONE ×2 (13:20→16:15)
[2018-01-15] MEDS ORDERED: Heparin 1,000 UNITS/500 mL 500 ML ONE (13:20)
[2018-01-15] MEDS ORDERED: 0.9 % Sodium Chloride 1,000 ML ONE ×2 (13:20→18:32)
[2018-01-15] MEDS ORDERED: *HR* Heparin 10,000 UNIT/10 ML VIAL ONE (13:20)
[2018-01-15] MEDS ORDERED: *HR* Midazolam HCl 2 MG/2 ML VIAL ONE ×2 (15:41→16:15)
[2018-01-15] MEDS ORDERED: *HR* FentaNYL (PF) 100 MCG/2 ML VIAL ONE (15:41)
--- NOTE | 2018-01-15 15:44 | Pre-Sedation Evaluation ---
Pre-sedation evaluation - Pre-sedation checklist Date of procedure: 01/15/18 Procedure: [facility] Recent Vitals: Last Vital Signs Temp 98.3 F 01/15/18 11:27 Pulse 70 01/15/18 11:27 Resp 17 01/15/18 11:27 BP 122/81 01/15/18 11:27 Pulse Ox 93 01/15/18 11:27 H&P (including ROS) documented in medical record: Yes Previous reaction to sedatives/anesthetics: No Dietary Status: NPO after Midnight Airway Assessment: Patient can open mouth completely, TMJ function normal, Micrognathia (under-bite, receding chin) absent, Neck with adequate range of motion Dentition: No loose teeth or bridges Possible difficult airway: No ASA Classification *see protocol: CLASS II-Mild systemic disease Plan of Care: Pt appropriate candidate for procedure/moderate/conscious sedation , Risks/benefits of procedure/sedation discussed w/ patient/family
[2018-01-15] MEDS ORDERED: *HR* Bivalirudin 250 MG VIAL IVC ONE ×2 (16:11→17:35)
[2018-01-15] MEDS ORDERED: *HR* Ticagrelor 90 MG TABLET ONE (17:01)
[2018-01-15] MEDS ORDERED: Nitroglycerin 25 MG/250 ML INFUS..BTL IVC ONE (17:01)
[2018-01-15] MEDS ORDERED: Nitroglycerin 0.4 MG TAB.SUBL SL PRN (17:13)
[2018-01-15] MEDS ORDERED: amLODIPine 5 MG TABLET PO SCH (17:15)
[2018-01-15] MEDS ORDERED: 0.9 % Sodium Chloride 1,000 ML IVC SCH (17:15)
[2018-01-15] MEDS ORDERED: Nitroglycerin 25 MG/250 ML INFUS..BTL IVC SCH (17:30)
[2018-01-15] MEDS ORDERED: Pregabalin 50 MG CAPSULE PO SCH (21:00)
[2018-01-15] MEDS ORDERED: amLODIPine 5 MG TABLET PO ONE (21:33)
[2018-01-15] MEDS: *HR* OxyCODONE/APAP 10/325 TABLET PO PRN (21:38)
--- NOTE | 2018-01-15 21:51 | Invasive Diagnostic Lab Proc ---
Name: Freddy Lujan Date of Study: 01/15/2018 Date: 1960 Ht: 66.9in Medical Record#: [id number] Age: 57 Wt: 266.76lb Gender: Male BSA: 2.28 Order #: [id number] BMI: 41.87 Physicians Procedure Physician: Lynn Leblanc MD, [facility] Referring MD: Referring MD: Staff Name Position Time In KatelynnDylanah RN Monitor 03:38 PM Danilo Renteria RN Inpatient Coder 03:38 PM Ebony, Aisha RT (R) Scrub 03:43 PM Indications Indication Non-Stemi Procedures Performed Procedure L HRT ART/GRFT ANGIO PRQ CARD MARTA STENT W/ANGIO 1 VSL PRQ CARD MARTA STENT W/ANGIO 1 VSL Pre-Procedure Checklist Informed consent is complete signed and on chart. H&P is on chart. ID band is on and ID verified with patient. Patient NPO for procedure The procedure was described for the patient and questions were answered. Blood Pressure: 182/104 ECG is on chart. Rhythm: NSR Plan of Care Patient will tolerate the procedure without complications. Adequate level of comfort will be maintained. Hemodynamics will remain stable Patient will recover from procedure without complications. Respiratory function will be maintained. Cardiac rhythm will remain stable. Patient temperature will be maintained. Patient and/or family have verbalized understanding of the procedure. Patient Education Chief Complaint/Reason for Test: Cardiac Cath Developmental Category: Adult (18-64 years) Developmentally Appropriate for Age: Yes Learning Barriers: None Education Needs: Procedure Education Method: Verbal Information Taught: Cardiac Cath Educational Evaluation: Able to repeat information Intravenous Access Time IV Size Location DC'd Fluid/Drip Rate Units RN 03:36 PM 20g 1 1/" Patent On Arrival Lt Hand 0.9NaCl ml/hr Allergies tramadol Vital Signs Time BP (mmHg) HR (bpm) O2 Sat. RR (bpm) LOC 03:36 PM / % 5 = Fully awake and oriented or at pre-proc level 03:36 PM / % 4 = Oriented but drowsy 03:52 PM / % 4 = Oriented but drowsy 04:07 PM / % 4 = Oriented but drowsy 04:22 PM / % 4 = Oriented but drowsy 04:37 PM / % 4 = Oriented but drowsy 04:52 PM / % 4 = Oriented but drowsy 03:46 PM 182 / 104 71 100 % 18 03:51 PM 164 / 103 75 99 % 16 03:56 PM 160 / 100 82 98 % 14 04:01 PM 176 / 88 71 98 % 25 04:06 PM 164 / 98 82 96 % 22 04:11 PM 155 / 89 74 100 % 12 04:16 PM 172 / 90 73 99 % 16 04:21 PM 152 / 94 73 96 % 15 04:26 PM 161 / 89 65 97 % 15 04:31 PM 170 / 91 74 98 % 18 04:36 PM 153 / 86 74 98 % 16 04:41 PM 171 / 93 71 99 % 18 04:46 PM 178 / 101 84 99 % 16 04:51 PM 178 / 103 79 99 % 9 04:56 PM 175 / 102 77 98 % 9 05:01 PM 174 / 102 69 97 % 9 5 = Fully awake and oriented or at pre-proc level 05:15 PM 152 / 90 69 98 % 10 5 = Fully awake and oriented or at pre-proc level 05:30 PM 145 / 102 68 98 % 18 5 = Fully awake and oriented or at pre-proc level 05:45 PM 142 / 87 66 98 % 16 5 = Fully awake and oriented or at pre-proc level 06:00 PM 146 / 99 69 98 % 17 5 = Fully awake and oriented or at pre-proc level 06:15 PM 160 / 100 70 97 % 17 5 = Fully awake and oriented or at pre-proc level 06:32 PM 155 / 101 69 96 % 10 5 = Fully awake and oriented or at pre-proc level 06:45 PM 175 / 104 64 100 % 14 5 = Fully awake and oriented or at pre-proc level 07:00 PM 154 / 93 74 99 % 16 5 = Fully awake and oriented or at pre-proc level 07:15 PM 158 / 85 72 99 % 16 5 = Fully awake and oriented or at pre-proc level 07:32 PM 149 / 96 70 98 % 16 5 = Fully awake and oriented or at pre-proc level 07:58 PM 166 / 91 67 99 % 18 5 = Fully awake and oriented or at pre-proc level 08:03 PM 182 / 89 73 98 % 20 5 = Fully awake and oriented or at pre-proc level 08:10 PM 179 / 110 64 98 % 16 5 = Fully awake and oriented or at pre-proc level 08:15 PM 179 / 108 74 98 % 21 5 = Fully awake and oriented or at pre-proc level 08:20 PM 173 / 88 77 98 % 21 5 = Fully awake and oriented or at pre-proc level 08:25 PM 179 / 109 74 98 % 20 5 = Fully awake and oriented or at pre-proc level 08:30 PM 173 / 88 77 98 % 21 5 = Fully awake and oriented or at pre-proc level 08:35 PM 173 / 84 84 98 % 12 5 = Fully awake and oriented or at pre-proc level 08:40 PM 173 / 88 77 98 % 16 5 = Fully awake and oriented or at pre-proc level 08:45 PM 163 / 90 84 98 % 12 5 = Fully awake and oriented or at pre-proc level 08:50 PM 148 / 80 70 98 % 15 5 = Fully awake and oriented or at pre-proc level 08:55 PM 173 / 84 98 98 % 29 5 = Fully awake and oriented or at pre-proc level 09:00 PM 171 / 83 93 99 % 19 5 = Fully awake and oriented or at pre-proc level 09:05 PM 177 / 92 82 98 % 12 5 = Fully awake and oriented or at pre-proc level 09:10 PM 166 / 80 76 98 % 20 5 = Fully awake and oriented or at pre-proc level Procedural Medications Time Medication Dose Units Method Given By 03:36 PM Oxygen 2 L/min nasal cannula Danilo Renteria RN 03:45 PM Versed 2 mg Intravenous Danilo Renteria RN 03:45 PM Fentanyl 50 mcg Intravenous Danilo Renteria RN 03:57 PM Lidocaine 2% 18 ml Subcutaneous Lynn Leblanc MD, FACC 04:14 PM Angiomax 0.75mg/kg bolus: 18 ml Intravenous Danilo Renteria RN 04:15 PM Angiomax 1.75mg/kg/hr: 42 ml Intravenous Danilo Renteria RN 04:15 PM Versed 1 mg Intravenous Danilo Renteria RN 04:15 PM Fentanyl 25 mcg Intravenous Danilo Renteria RN 04:31 PM Nitroglycerin 200 mcg Intracoronary Lynn Leblanc MD, FACC 04:33 PM Nitroglycerin 200 mcg Intracoronary Lynn Leblanc MD, FACC 04:41 PM Nitroglycerin 200 mcg Intracoronary Lynn Leblanc MD, FACC 04:49 PM Nitroglycerin 200 mcg Intracoronary Lynn Leblanc MD, FACC 04:51 PM Nitroglycerin 200 mcg Intracoronary Lynn Leblanc MD, FACC 05:02 PM Brilinta 180 mg Intravenous Danilo Renteria RN 05:03 PM Nitroglycerin 5 mcg/min Intravenous Danilo Renteria RN 05:05 PM Nitroglycerin 10 mcg/min Intravenous Ann Haider RN 08:25 PM Hydralazine 20 mg Intravenous Ann Haider RN 08:45 PM Hydralazine 10 mg Intravenous Ann Haider RN 08:15 PM Nitroglycerin 30 mcg Intravenous Ann Haider RN 08:50 PM Nitroglycerin 20 mcg Intravenous Ann Haider RN ASA Classification: CLASS II- Mild systemic disease (i.e. well-controlled diabetes, hypertension, asthma, cigarette smoking) Matt Score Preprocedure Postprocedure Activity 2- Moves 4 extremities sustained head lift Activity 2- Moves 4 extremities sustained head lift Circulation 2- SBP +/= 20 points of pre-anesthetic level Circulation 2- SBP +/= 20 points of pre-anesthetic level Consciousness 2- Awake and alert oriented x 3 Consciousness 2- Awake and alert oriented x 3 O2 Saturation 2- Able to maintain O2 satruation of 92% on room air O2 Saturation 2- Able to maintain O2 satruation of 92% on room air Respiratory 2- Able to deep breathe and cough well Respiratory 2- Able to deep breathe and cough well Total Score 10 Total Score 10 Contrast Agent: Isovue Diagnostic Contrast: 326 ml Total Contrast: 326 ml Fluoro Dose: 1762 mGy Procedure Log Time Note Enter By 01:34 PM CathStat 03:36 PM Pt arrived to laboratory equipment cleaner 2 at 15:36 tsites 03:36 PM Physician arrived 15:36 tsites 03:36 PM Meet and greet completed tsites 03:36 PM Sign in performed according to hospital policy. tsites 03:36 PM Procedure start 15:36 tsites 03:36 PM Time: 15:36 Oxygen on at 2 L/min per nasal cannula by Danilo Renteria RN tsites 03:36 PM Time: 15:36 Patient comfortable and pain free: Yes tsites 03:36 PM Time: 15:36LOC: 5 = Fully awake and oriented or at pre-proc level tsites 03:37 PM Clinical Presentation: Non-STEMI tsites 03:37 PM Patient charges- Angio tray pack, Navilyst 3mm J, Pulse Oximetry and ACIST tubing and transducer tsites 03:37 PM Case Delayed no, inpatient tsites 03:38 PM Rochelle Pace RN Position: Monitor Time in: 15:38 tsites 03:39 PM Danilo Renteria RN Position: Inpatient Coder Time in: 15:38 tsites 03:43 PM Vitals capture started with the following parameters, Patient=Adult, Interval=5 min, Initial Dxibtvko=514 mmHg, Deflation Rate=5 mmHg, Cuff placed on Right Arm 03:43 PM Ebony, Aisha RT (R) Position: Scrub Time in: 15:43 scoates 03:45 PM Vitals capture started with the following parameters, Patient=Adult, Interval=5 min, Initial Bdxpxwva=290 mmHg, Deflation Rate=5 mmHg, Cuff placed on Right Arm 03:45 PM Time: 15:45 Versed 2 mg Intravenous Given by Danilo Renteria RN scoates 03:46 PM Time: 15:45 Fentanyl 50 mcg Intravenous Given by Danilo Renteria RN scoates 03:46 PM HR=71 bpm, NJKC=440/104 mmhg, KfA0=523.0 %, Resp=18 B/min, Comment=sr 03:47 PM Case Delayed no, inpatient scoates 03:51 PM HR=75 bpm, XRNO=309/103 mmhg, SpO2=99.0 %, Resp=16 B/min, Comment=sr 03:51 PM Time: 15:36 Patient comfortable and pain free: Yes scoates 03:52 PM Time: 15:36LOC: 4 = Oriented but drowsy scoates 03:56 PM HR=82 bpm, QVWI=146/100 mmhg, SpO2=98.0 %, Resp=14 B/min, Comment=sr 03:56 PM Pressure channel 1 zeroed. 03:57 PM Time out performed according to hospital policy scoates 03:57 PM Time: 15:57 18 ml Lidocaine 2% to right groin Subcutaneous Given by Lynn Leblanc MD, [facility] scoates 03:58 PM Access obtained by percutaneous puncture. 5Fr 10cm Terumo Brigantine sheath placed in right Femoral artery. [id number] scoates 03:59 PM 5Fr FL 4 catheter inserted over the wire DNC scoates 04:00 PM LCA angiography performed in multiple views. scoates 04:01 PM HR=71 bpm, YQVS=827/88 mmhg, SpO2=98.0 %, Resp=25 B/min, Comment=sr 04:01 PM Recorded Pressure: Ao, HR=69, Condition=Condition 1 (Aorta) Ao 150/92/118 04:02 PM Catheter removed scoates 04:02 PM Catheter removed scoates 04:02 PM 5Fr FR 4 catheter inserted over the wire DN scoates 04:02 PM RCA angiography performed in multiple views. scoates 04:03 PM Recorded Pressure: Ao, HR=79, Condition=Condition 1 (Aorta) Ao 169/109/137 04:04 PM repositioned catheter to SVG graft scoates 04:06 PM HR=82 bpm, QANV=118/98 mmhg, SpO2=96.0 %, Resp=22 B/min, Comment=sr 04:06 PM SVG to the Ramus angio performed in multiple views. scoates 04:06 PM Catheter removed scoates 04:06 PM Time: 15:51 Patient comfortable and pain free: Yes scoates 04:06 PM 5Fr IM catheter inserted over the wire [id number] scoates 04:07 PM Recorded Pressure: Ao, HR=82, Condition=Condition 1 (Aorta) Ao 118/48/72 04:07 PM Time: 15:52LOC: 4 = Oriented but drowsy scoates 04:07 PM Left DEMARIO to the LAD angio performed in multiple views. scoates 04:09 PM Catheter removed scoates 04:10 PM Pressure channel 1 zeroed. 04:10 PM Recorded Pressure: LV, HR=76, Condition=Condition 1 (Left Ventricle) LV 127/18/17 04:10 PM Recorded Pressure: LV, Ao, HR=80, Condition=Condition 1 (Left Ventricle) LV 135/28/31, (Aorta) Ao 135/84/108 04:11 PM 5Fr Pigtail catheter inserted over the wire DN scoates 04:11 PM Catheter selectively placed in left ventricle scoates 04:11 PM HR=74 bpm, RZQW=637/89 mmhg, QvO0=468.0 %, Resp=12 B/min, Comment=sr 04:11 PM Bolus angiogram of left Ventricle complete: 8 ml/sec for a total of 24 mls scoates 04:12 PM Catheter removed scoates 04:13 PM PCI Status Urgent scoates 04:13 PM PCI Indication: PCI for high risk Non-STEMI or unstable angina scoates 04:14 PM Sheath exchanged for a 6 Fr 11 cm Cordis Sylvia sheath [id number] scoates 04:15 PM Time: 16:14 Angiomax 0.75mg/kg bolus: 18 ml Intravenous Given by Danilo Renteria RN Reid pump scoates 04:15 PM Time: 16:15 Angiomax 1.75mg/kg/hr: 42 ml Intravenous Given by Danilo Renteria RN Reid pump scoates 04:15 PM Time: 16:15 Versed 1 mg Intravenous Given by Danilo Renteria RNoates 04:15 PM 6Fr XB LAD 3.5 [place] Bright-Tip guide catheter was used to cannulate the PCI vessel successfully. reused? No scoates 04:15 PM Time: 16:15 Fentanyl 25 mcg Intravenous Given by Danilo Renteria RN scoates 04:16 PM HR=73 bpm, SGHY=275/90 mmhg, SpO2=99.0 %, Resp=16 B/min, Comment=sr 04:18 PM .014 Prowater 180cm guide wire across target lesion- successful. reused? No scoates 04:19 PM 2.5 mm x 12 mm Emerge Monorail balloon across target lesion- successful. reused? No scoates 04:20 PM Lesion found in LMCA. Pre Stenosis: 85 Pre SEDRICK Flow: 3: Complete and Brisk Flow/Perfusion scoates 04:20 PM Lesion found in Ramus. Pre Stenosis: 99 Pre SEDRICK Flow: 3: Complete and Brisk Flow/Perfusion scoates 04:20 PM Balloon inflated @ 12 jimenez for 20 seconds scoates 04:21 PM Recorded Pressure: Ao, HR=77, Condition=Condition 1 (Aorta) Ao 139/85/110 04:21 PM HR=73 bpm, YILQ=992/94 mmhg, SpO2=96.0 %, Resp=15 B/min, Comment=sr 04:22 PM Time: 16:06 Patient comfortable and pain free: Yes scoates 04:22 PM Balloon inflated @ 12 jimenez for 20 seconds scoates 04:22 PM Time: 16:07LOC: 4 = Oriented but drowsy scoates 04:23 PM Balloon catheter removed intact. scoates 04:24 PM 3.0mm x 16mm Synergy drug-eluting stent across target lesion- successful Lot #[id number] scoates 04:26 PM HR=65 bpm, TCDF=755/89 mmhg, SpO2=97.0 %, Resp=15 B/min, Comment=sr 04:26 PM stent removed intact not deployed scoates 04:27 PM Recorded Pressure: Ao, HR=71, Condition=Condition 1 (Aorta) Ao 134/65/95 04:28 PM 3.0mm x 12mm Synergy drug-eluting stent across target lesion- successful Lot #[id number] scoates 04:29 PM Stent deployed @ 12 jimenez for 30 seconds scoates 04:30 PM Stent delivery system removed intact. scoates 04:31 PM HR=74 bpm, NIRR=450/91 mmhg, SpO2=98.0 %, Resp=18 B/min, Comment=sr 04:31 PM Time: 16:31 Nitroglycerin 200 mcg Intracoronary Given by Lynn Leblanc MD, [facility] scoates 04:32 PM Recorded Pressure: Ao, HR=84, Condition=Condition 1 (Aorta) Ao 142/70/99 04:33 PM Time: 16:33 Nitroglycerin 200 mcg Intracoronary Given by Lynn Leblanc MD, [facility] scoates 04:34 PM physician reviewing films scoates 04:36 PM HR=74 bpm, PKUQ=664/86 mmhg, SpO2=98.0 %, Resp=16 B/min, Comment=sr 04:37 PM 3.0mm x 8mm Synergy drug-eluting stent across target lesion- successful Lot #[id number] scoates 04:37 PM Time: 16:22 Patient comfortable and pain free: Yes scoates 04:37 PM Time: 16:22LOC: 4 = Oriented but drowsy scoates 04:37 PM Recorded Pressure: Ao, HR=75, Condition=Condition 1 (Aorta) Ao 124/73/96 04:40 PM Stent deployed @ 12 jimenez for 20 seconds scoates 04:41 PM Stent balloon reinflated @ 16 jimenez for 6 seconds scoates 04:41 PM Time: 16:41 Nitroglycerin 200 mcg Intracoronary Given by Lynn Leblanc MD, [facility] scoates 04:41 PM Coronary Dominance: right scoates 04:41 PM Stent delivery system removed intact. scoates 04:41 PM HR=71 bpm, PPNZ=770/93 mmhg, SpO2=99.0 %, Resp=18 B/min, Comment=sr 04:44 PM 4.0mm x 20mm Synergy drug-eluting stent across target lesion- successful Lot #[id number] scoates 04:45 PM Recorded Pressure: Ao, HR=78, Condition=Condition 1 (Aorta) Ao 142/84/111 04:46 PM Balloon inflated @ 12 jimenez for 30 seconds scoates 04:46 PM HR=84 bpm, EQCQ=779/101 mmhg, SpO2=99.0 %, Resp=16 B/min, Comment=sr 04:46 PM second bag of angiomax mixed and hung by MOY Renteria RN scoates 04:47 PM Stent balloon reinflated @ 12 jimenez for 10 seconds scoates 04:47 PM Stent delivery system removed intact. scoates 04:48 PM Recorded Pressure: Ao, HR=78, Condition=Condition 1 (Aorta) Ao 173/80/119 04:49 PM Time: 16:49 Nitroglycerin 200 mcg Intracoronary Given by Lynn Leblanc MD, [facility] scoates 04:50 PM Time: 16:37 Patient comfortable and pain free: No Pt states "7/10 chest pain" scoates 04:51 PM HR=79 bpm, XYUY=399/103 mmhg, SpO2=99.0 %, Resp=9 B/min, Comment=sr 04:51 PM Time: 16:51 Nitroglycerin 200 mcg Intracoronary Given by Lynn Leblanc MD, [facility] scoates 04:52 PM Guide wire removed intact. scoates 04:52 PM Time: 16:37LOC: 4 = Oriented but drowsy scoates 04:52 PM Guide catheter removed intact. scoates 04:53 PM Time: 16:53 Patient comfortable and pain free: No Pt states "5/10 chest pain and decreasing." scoates 04:54 PM Procedure completed at 16:54 scoates 04:54 PM Did you address SEDRICK flow and Dominance? Yes scoates 04:55 PM Sign out completed: Radiation Dose 1762 mGy Fluoro Time: 13.9 Isovue 370 - 200ml contrast 326 ml given by Lynn Leblanc MD, [facility]. Complications: NoneCardiac Rehab Consult needed: YesConfirmed administered medications: Yes scoates 04:55 PM Isovue 370 - 200ml,2 Bottle(s) used. scoates 04:56 PM Sheath left in place to be pulled on floor/holding areaV+Pad scoates 04:56 PM HR=77 bpm, RBVD=729/102 mmhg, SpO2=98.0 %, Resp=9 B/min, Comment=sr 04:56 PM Estimated Blood Loss: less than 20cc scoates 04:56 PM Post ECG NSR scoates 04:56 PM Post Blood Pressure 175/102 scoates 04:57 PM 16:57 Post Pulses Bilateral DP & PT 2+ scoates 04:58 PM Information taught Cardiac Cath and PCI scoates 04:58 PM Education needs Procedure, Plan of Care, and Responsibilities of Patient in Care scoates 04:58 PM Learning barriers :None scoates 04:58 PM Education Methods Verbal scoates 04:59 PM Education evaluation Able to repeat information scoates 04:59 PM Site status No bleeding/hematoma - Rt Groin as reported by Sites, Aisha RT (R) at 16:59 scoates 04:59 PM Opsite applied scoates 05:00 PM Report given to Vangie VENEGAS Pt taken to Holding room Room #2. 16:59 scoates 05:01 PM Received patient to holding area room 2. Sheath in place to Rt groin. [email or web address] 05:03 PM Time: 17:02 Brilinta 180 mg Intravenous Given by Danilo Renteria RN [email or web address] 05:03 PM Time: 17:03 Nitroglycerin 5 mcg/min Intravenous Given by Danilo Renteria RN Reid pump scoates 05:05 PM Lesion found in Proximal LAD. Pre Stenosis: 99 Pre SEDRICK Flow: scoates 05:05 PM Lesion found in Proximal RCA. Pre Stenosis: 80 Pre SEDRICK Flow: scoates 05:05 PM Lesion found in Mid RCA. Pre Stenosis: 99 Pre SEDRICK Flow: scoates 05:05 PM Time: 17:05 Nitroglycerin 10 mcg/min Intravenous Given by Ann Haider RN 05:05 PM Lesion found in Distal RCA. Pre Stenosis: 99 Pre SEDRICK Flow: scoates 05:05 PM Lesion found in Proximal Circumflex. Pre Stenosis: 90 Pre SEDRICK Flow: scoates 05:06 PM Lesion found in 1st Marginal. Pre Stenosis: 100 Pre SEDRICK Flow: scoates 05:07 PM Left Main Coronary Artery with 80% stenosis scoates 05:07 PM Proximal Left Anterior Descending Coronary Artery with 99% stenosis. If graft is supplying this territory, 0 % stenosis. scoates 05:07 PM Circumflex, Obtuse Marginal, Left Posterior Descending, and Left Posterolateral Coronary Arteries with 90 % stenosis. If graft is supplying this area, 0 % stenosis scoates 05:07 PM Right Coronary, Right Posterior Descending Arteries with Right Posterolateral and Acute Marginal branches with 99 % stenosis. If graft is supplying this area, 0 % stenosis scoates 06:24 PM nitro titrated 15mcg/min scoates 07:23 PM pt voided 400 cc urine, clear/yellow. [email or web address] 08:10 PM Arterial sheath pulled using manual compression and V+ Pad for 20 minutes by Ann Haider RN 08:15 PM Time: 20:15 Nitroglycerin 30 mcg Intravenous Given by Ann Haider RN 08:[address] Leblanc at bedside. Orders received. [facility] PM Time: 20:25 Hydralazine 20 mg Intravenous Given by Ann Haider RN 08:30 PM B/P still up and Rt groin site with hematoma. Orders received and pressure held. [email or web address] 08:45 PM Time: 20:45 Hydralazine 10 mg Intravenous Given by Ann Haider RN 08:50 PM Time: 20:50 Nitroglycerin 20 mcg Intravenous Given by Ann Haider RN 08:55 PM Report given to Jose VENEGAS Pt taken to E Room #21. 20:55 neyda 09:00 PM Hematoma noted again to Rt groin. Pressure held. neyda 09:20 PM Rt groin now soft. No hematoma noted. Opsite in place. neyda 09:25 PM Patient out of room: 21:25 neyda 09:35 PM [employer] attendant notified of difficulty achieving hemostasis and possibility of needing a different bed. nyeda Complications Complication None Hemodynamics Pressures Site Systolic/A Wave Diastolic/V Wave Mean AO 150 92 118 AO 169 109 137 AO 118 48 72 LV 127 18 17 LV 135 28 31 AO 135 84 108 AO 139 85 110 AO 134 65 95 AO 142 70 99 AO 124 73 96 AO 142 84 111 AO 173 80 119 Post Procedure Information Blood Pressure: 175/102 mmHg Rhythm: NSR Post procedural instructions were given Closure Device Time Device Success/Fail 01/15/2018 8:10:00 PM Mechanical Compression Successful Site Checks Time Location Status Staff Sheath In? Note 04:59 PM Rt Groin No bleeding/hematoma Sites, Aisha RT (R) 05:01 PM Rt Groin No bleeding/ No Hematoma Ann Haider RN Yes 05:15 PM Rt Groin No bleeding/ No Hematoma Ann Haider RN Yes 05:30 PM Rt Groin No bleeding/ No Hematoma Ann Haider RN Yes 05:45 PM Rt Groin No bleeding/ No Hematoma Sites, Aisha RT (R) Yes 06:00 PM Rt Groin No bleeding/ No Hematoma Sites, Aisha RT (R) Yes 06:15 PM Rt Groin No bleeding/ No Hematoma Rochelle Pace RN Yes 06:32 PM Rt Groin No bleeding/ No Hematoma Kallner, Vangie RT Yes 06:45 PM Rt Groin No bleeding/ No Hematoma Danilo Renteria RN Yes 07:00 PM Rt Groin No bleeding/ No Hematoma Danilo Renteria RN Yes 07:32 PM Rt Groin No bleeding/ No Hematoma Kallner, Vangie RT Yes 07:58 PM Rt Groin No bleeding/ No Hematoma Kallner, Vangie RT Yes 08:03 PM Rt Groin No bleeding/ No Hematoma Kallner, Vangie RT Yes 05:45 PM Rt Groin No bleeding/ No Hematoma Ann Haider RN Yes 06:00 PM Rt Groin No bleeding/ No Hematoma Ann Haider RN Yes 06:15 PM Rt Groin No bleeding/ No Hematoma Ann Haider RN Yes 06:30 PM Rt Groin No bleeding/ No Hematoma Ann Haider RN Yes 06:45 PM Rt Groin No bleeding/ No Hematoma Ann Haider RN Yes 08:00 PM Rt Groin No bleeding/ No Hematoma Ann Haider RN Yes 09:00 PM Rt Groin Hematoma Parsley, Ann RN Pressure held 09:20 PM Rt Groin No bleeding/ No Hematoma Ann Haider RN Pulses Time Site Pre-Procedure Post-Procedure Note 01/15/2018 3:36:00 PM Bilateral DP & PT 2+ 4:57:00 PM Bilateral DP & PT 2+ 01/15/2018 5:01:00 PM Bilateral DP & PT 2+ 01/15/2018 5:15:00 PM Bilateral DP & PT 2+ 01/15/2018 5:30:00 PM Bilateral DP & PT 2+ 01/15/2018 5:45:00 PM Bilateral DP & PT 2+ 01/15/2018 6:00:00 PM Bilateral DP & PT 2+ 01/15/2018 6:15:00 PM Bilateral DP & PT 2+ 01/15/2018 6:32:00 PM Bilateral DP & PT 2+ 01/15/2018 6:45:00 PM Bilateral DP & PT 2+ 01/15/2018 7:00:00 PM Bilateral DP & PT 2+ 01/15/2018 7:15:00 PM Bilateral DP & PT 2+ 01/15/2018 7:32:00 PM Bilateral DP & PT 2+ 01/15/2018 7:58:00 PM Bilateral DP & PT 2+ 01/15/2018 5:30:00 PM Bilateral DP & PT 2+ 01/15/2018 6:00:00 PM Bilateral DP & PT 2+ 01/15/2018 7:00:00 PM Bilateral DP & PT 2+ 01/15/2018 8:00:00 PM Bilateral DP & PT 2+ 01/15/2018 8:45:00 PM Bilateral DP & PT 2+ Updated by Ann Haider RN on 01/15/2018 9:46:45 PM electronically signed on 01/15/2018 9:47:27 PM with status of Final
[2018-01-15] MEDS: amLODIPine 5 MG TABLET PO SCH (22:00)
[2018-01-16] MEDS: 0.9 % Sodium Chloride 1,000 ML IVC SCH (01:20)
[2018-01-16 05:09] LABS: Hematocrit 39.7 % (37.5-50.1); Hemoglobin 12.9 g/dL (12.9-16.9)
[2018-01-16 05:26] LABS: BUN/Creatinine Ratio 13 (6-26); Blood Urea Nitrogen 17 mg/dL (6-20); eGFR For African Americans > 60 (> 60); eGFR For Non-African Americans 57 (> 60)
[2018-01-16] MEDS: *HR* OxyCODONE/APAP 10/325 TABLET PO PRN (06:07)
[2018-01-16] MEDS: Insulin LISPRO 300 UNITS/3 ML VIAL SQ SCH ×2 (07:42→13:02)
[2018-01-16] MEDS: Isosorbide MONOnitrate (24 HR) 30 MG TAB.ER.24H PO SCH (07:44)
[2018-01-16] MEDS: amLODIPine 5 MG TABLET PO SCH (07:44)
[2018-01-16] MEDS: Aspirin Enteric Coated 81 MG Tablet PO SCH (07:44)
[2018-01-16] MEDS ORDERED: Lisinopril 20 MG TABLET PO SCH (09:00)
--- NOTE | 2018-01-16 10:09 | Cardiology Progress Note ---
Date of Encounter: 01/16/18 Time of Encounter: 10:07 Assessment and Plan (1) NSTEMI (non-ST elevated myocardial infarction) Current Visit: Yes Status: Acute Peak troponin 1.71, then downtrended. Presentation c/w ACS - NSTEMI. Pt underwent LHC yesterday--revealed triple vessel CAD, s/p CABG 2/2 patent bypass grafts, EF 65%, successful PTCA/MARTA in LMCA and prox Ramus. Right femoral access site healing well. No bleeding or hematoma. Mild ecchymosis noted. DAPT (ASA and Plavix) uninterrupted x 1 year. Pt verbalizes understanding. Continue Statin, BB, Nitrates. Troponin checked s/p LHC 0.96. Recent echo EF preserved. Cardiac rehab ordered. Creatinine 1.30 s/p LHC, improved and at baseline. Restrictions s/p LHC discussed. Lifestyle modification discussed. Cardiology signing off. Reconsult PRN. Will coordinate outpt follow-up in 1 week. (2) CAD (coronary artery disease) Current Visit: Yes Status: Chronic As above, ASA, Plavix, Statin, BB, nitrates. Qualifiers: Coronary Disease-Associated Artery/Lesion type: unspecified vessel or lesion type [place] vs. transplanted heart: [place] heart Associated angina: with stable angina Qualified Code(s): I25.118 - Atherosclerotic heart disease of [place] coronary artery with other forms of angina pectoris Discussion w patient/family: The assessment and plan as outlined above was discussed with the patient and/or family members who expressed understanding and agreement. All questions were answered. Thank you for involving us in the care of your patient. Please call with any questions. I will discuss all the above with Dr. Guillory and make changes as necessary. Subjective Principal diagnosis: Chest pain Interval history: Pt underwent LHC yesterday for NSTEMI. LHC revealed triple vessel CAD. S/P CABG 2/2 grafts patent. EF 65%. Successful PTCA/MARTA in LMCA and proximal Ramus. Peak troponin prior to LHC was 1.71. Troponin checked s/p LHC and PCI was 0.96. Pt denies chest pain or dyspnea overnight. No acute cardiac complaints. Creatinine 1.30 today, improved and near his baseline. Objective Vital Signs, Last 4 Hours Temp Pulse Resp BP Pulse Ox 01/16/18 06:54 98.3 F 57 16 143/87 97 Vital Signs Temp Pulse Resp BP Pulse Ox 01/16/18 06:54 98.3 F 57 16 143/87 97 01/16/18 04:46 98.0 F 77 18 125/75 97 01/16/18 01:24 98.8 F 65 17 113/63 98 01/16/18 00:15 60 16 124/74 98 01/16/18 00:00 78 16 107/72 98 01/15/18 23:15 82 16 123/74 98 01/15/18 23:00 67 16 131/75 98 01/15/18 22:45 72 16 146/77 98 01/15/18 22:30 80 16 123/80 97 01/15/18 22:15 95 16 150/82 97 01/15/18 22:00 88 16 137/82 97 01/15/18 21:40 94 16 146/91 98 01/15/18 21:30 98 01/15/18 21:25 96 16 146/82 98 01/15/18 21:00 98.1 F 94 16 146/82 97 01/15/18 11:27 98.3 F 70 17 122/81 93 Intake and Output 01/15/18 01/16/18 01/16/18 23:59 07:59 15:59 Intake Total 1100 / 1100 Output Total 1200 / 1200 600 / 600 Balance -1200 / -1200 500 / 500 Intake: IV Fluids 1100 / 1100 0.9 % Sodium Chloride 1,000 ML 1000 / 1000 @ 80 mls/hr IVC .[id number] [facility] Rx #:[id number] Nitroglycerin Premix 25 MG/250 100 / 100 ML 25 mg In 250 ml @ 5 MCG/MIN 3 mls/hr IVC .Q24H [facility] Rx#: [id number] Oral 0 / 0 Output: Urine 300 / 300 600 / 600 Straight Cath 900 / 900 Other: # Voids 0 Weight 122.2 kg Blood Glucose* 95 88 Patient Weight 01/16/18 23:59 Weight 122.2 kg General: Conversant, No Apparent Distress HEENT: Atraumatic, Normocephaly, Mucus Membranes Moist Neck: No JVD, Normal carotid pulses Cardiac: Reg Rate and Rhythm, Normal S1 and S2, No Murmur Lungs: Normal Breath Sounds, No Wheeze, Rales, Rhonchi Neuro: Alert and responsive, No focal deficits noted Abdomen: Soft, Non-Tender Skin: Other (right femoral access site healing well. No bleeding or hematoma noted. Mild ecchymosis.) Musculoskeletal: No Chest Wall Tenderness Extremities: No Clubbing, No Cyanosis, No Edema, Normal Pulses Results 01/16/18 04:21 01/16/18 04:21 Lab Results 01/16/18 01/16/18 01/16/18 04:21 04:21 04:21 Hgb 12.9 Hct 39.7 Plt Count 308 BUN 17 Creatinine 1.30 Troponin I 0.96 H* Short CBC 01/16/18 Range/Units 04:21 Hgb 12.9 (12.9-16.9) g/dL Hct 39.7 (37.5-50.1) % Plt Count 308 (140-400) K/mcL BMP 01/16/18 Range/Units 04:21 BUN 17 (6-20) mg/dL Creatinine 1.30 (0.70-1.30) mg/dL Cardiac Enzymes 01/16/18 Range/Units 04:21 Troponin I 0.96 H* (< 0.04) ng/mL Active Medications Amlodipine Besylate (Norvasc) 5 mg PO DAILY [facility] PRN Reason: Protocol Stop: 07/17/18 22:16 Last Admin: 01/16/18 07:44 Dose: 5 mg Aspirin (Aspirin Ec) 81 mg PO DAILY [facility] Stop: 07/15/18 09:01 Last Admin: 01/16/18 07:44 Dose: 81 mg Atorvastatin Calcium (Lipitor) 80 mg PO HS [facility] Stop: 07/17/18 21:01 Last Admin: 01/15/18 21:38 Dose: 80 mg Clopidogrel Bisulfate (Plavix) 75 mg PO DAILY [facility] Stop: 07/18/18 09:01 Last Admin: 01/16/18 07:44 Dose: 75 mg Dextrose/Water (Dextrose 50% (Syg)) 25 ml IVP AD PRN PRN Reason: Hypoglycemia Stop: 07/15/18 10:15 Glucagon (Glucagen) 1 mg IM ONCE PRN PRN Reason: Hypoglycemia Stop: 07/15/18 10:15 Glucose (Gluctose) 15 gm PO ONCE PRN PRN Reason: Hypoglycemia Stop: 07/15/18 10:15 Glucose (Gluctose) 30 gm PO ONCE PRN PRN Reason: Hypoglycemia Stop: 07/15/18 10:15 Dextrose (Dextrose 5%) 1,000 mls @ 100 mls/hr IVC .Q10H PRN PRN Reason: HYPOGLYCEMIA Stop: 07/15/18 10:15 Nitroglycerin (Nitroglycerin Premix 25 Mg/250 Ml) 25 mg in 250 mls @ 3 mls/hr IVC .Q24H [facility]; 5 MCG/MIN PRN Reason: Protocol Stop: 07/17/18 17:31 Last Titration: 01/16/18 01:17 Dose: 0 mcg/min, 0 mls/hr Insulin Human Lispro (Humalog) 0 units SQ HS [facility] PRN Reason: Protocol Stop: 07/15/18 21:01 Last Admin: 01/15/18 23:00 Dose: Not Given Insulin Human Lispro (Humalog) 0 units SQ TIDAC [facility] PRN Reason: Protocol Stop: 07/15/18 11:31 Last Admin: 01/16/18 07:42 Dose: Not Given Isosorbide Mononitrate (Imdur) 30 mg PO DAILY [facility] Stop: 07/15/18 09:01 Last Admin: 01/16/18 07:44 Dose: 30 mg Lisinopril (Zestril) 20 mg PO DAILY [facility] PRN Reason: Protocol Stop: 07/18/18 09:01 Last Admin: 01/16/18 07:44 Dose: 20 mg Metoprolol Tartrate (Lopressor) 50 mg PO BID [facility] Stop: 07/17/18 21:01 Last Admin: 01/16/18 07:44 Dose: 50 mg Naloxone HCl (Narcan) 0.4 mg IVP Q2MIN PRN PRN Reason: SEE COMMENTS Stop: 07/14/18 20:57 Nitroglycerin (Nitroglycerin) 0.4 mg SL Q5MIN PRN PRN Reason: Chest Pain Stop: 07/17/18 17:14 Ondansetron HCl (Zofran) 4 mg IVP Q4HR PRN; Protocol PRN Reason: Nausea Stop: 07/15/18 12:01 Last Admin: 01/13/18 10:12 Dose: 4 mg Oxycodone/Acetaminophen (Percocet 10/325) 1 each PO QID PRN PRN Reason: Pain Stop: 07/14/18 21:00 Last Admin: 01/16/18 06:07 Dose: 1 each Pregabalin (Lyrica) 200 mg PO HS [facility] Stop: 07/17/18 21:01 Last Admin: 01/15/18 21:38 Dose: 200 mg - Imaging and Cardiology Echo: report reviewed Cardiac cath: report reviewed - EKG Interpretation EKG results cardiology: other (12 hr tele AVG HR 65 SR, no significant pauses or arrhythmias.) Consult Discharge Plan - Plan Additional Instructions: RISK FACTORS: STOP SMOKING: If you smoke, STOP. Smoking or tobacco use significantly increases your risk of heart disease because nicotine causes the arteries to narrow or constrict. It also causes fats to stick to the artery. Your chances of having a heart attack are greatly increased if you continue to smoke. For more information, call the education line for smoking cessation 7-588-UJMGULP EAT A LOW FAT/CHOLESTEROL/SODIUM DIET: This diet may help reduce your chances of having a heart attack. LIFTING: Avoid lifting anything more than 10 pounds for 5-7 days Prior to straining, laughing, sneezing and/or coughing, apply manual pressure directly over insertion site. ACTIVITY: You may walk or climb stairs as tolerated You can resume sexual activity as tolerated In general, you are encouraged to engage in a minimum of 30 minutes or more of moderate intensity physical activity, such as brisk walking, daily or at least 3 -4 times weekly BATHING Do not submerge the site into water (bath tub, hot tub, swimming pool) for 1 week. This can be a source for infection into the blood stream. You may shower after 24 hours SITE CARE: After 24 hours, you may remove the dressing and leave the site open to air. Keep the site clean and dry. Clean gently and pat dry. You can expect bruising and tenderness that gradually resolve within a week or two. Return to work as instructed per your physician Resume driving as instructed per physician Keep all scheduled follow up appointments Resume medications as instructed IMPORTANT: If prescribed a Platelet Aggregation Inhibitor such as, Plavix, Brilinta or Effient: Duration of therapy is minimum one year These medications are often used in combination with Aspirin in prevention of future heart attacks Never discontinue unless consult with your Patient Services Assistant STROKE (CVA) Risk factors for a stroke are: Age, cigarette smoking, diabetes, excessive alcohol consumption, family history, high blood pressure, overweight, physical inactivity, prior stroke, heart attack, diagnosis of carotid artery stenosis or other artery disease. Warning signs: Sudden numbness or weakness of the face, arm or leg; especially on one side of the body, sudden confusion, trouble speaking or understanding, sudden trouble seeing in one or both eyes, sudden trouble walking, dizziness, loss of balance or coordination, sudden severe headache with no cause. Call 911 or go to the Emergency Room. CONGESTIVE HEART FAILURE: If you have been diagnosed with Congestive Heart Failure (CHF) and your symptoms return, make an appointment with your physician Weigh yourself daily. Notify your physician if you have a weight gain of two or more pounds in one day or five or more pounds in one week. If you experience any difficulty breathing, please call 911 BLEEDING: Although the risk of bleeding is minimal, it can happen. If you have any bleeding from the site, apply firm pressure above the puncture site for 10-15 minutes. If the bleeding does not stop, continue manual pressure and call 911 Contact your physician if: You develop a fever greater than 101 degrees Fahrenheit Your site becomes reddened or has any drainage You have an increase in pain or burning at the site or if a large knot forms at the site. If you experience chest pain, shortness of breath, dizziness, or extreme tiredness, stop the activity and rest. Please notify your physicians office if you experience any of these symptoms and they are not relieved by rest please call 911! Referrals: Mauro Serrano [Primary Care Provider] - 01/21/18 9:00 am
--- NOTE | 2018-01-16 11:48 | Discharge Summary ---
- NOTES TO OUTPATIENT PROVIDER Notes to Outpatient Provider: s/p 2 MARTA to LMCA and prox ramus . Needs to take plavix for at least 18 months. Follow up with cardiology Orders not resulted at time of discharge: Pending orders 01/16/18 06:00 ECG 12 lead ECG [ECG] AM 0600 01/16/18 12:00 Troponin I Timed Date of Encounter: 01/16/18 Time of Encounter: 11:47 - Discharge Diagnosis (1) CAD (coronary artery disease) Priority: Secondary Status: Chronic Qualifiers: Coronary Disease-Associated Artery/Lesion type: unspecified vessel or lesion type [place] vs. transplanted heart: [place] heart Associated angina: with stable angina Qualified Code(s): I25.118 - Atherosclerotic heart disease of [place] coronary artery with other forms of angina pectoris (2) CKD (chronic kidney disease) Priority: Secondary Status: Chronic Qualifiers: Chronic kidney disease stage: stage 3 (moderate) Qualified Code(s): N18.3 - Chronic kidney disease, stage 3 (moderate) (3) Diabetes mellitus type 2 in obese Priority: Secondary Status: Chronic (4) Hypertension Priority: Secondary Status: Chronic Qualifiers: Hypertension type: essential hypertension Qualified Code(s): I10 - Essential (primary) hypertension (5) Morbid obesity Priority: Secondary Status: Chronic (6) Near syncope Priority: Primary Status: Acute (7) NSTEMI (non-ST elevated myocardial infarction) Priority: Primary Status: Acute Hospital course: Mr. Lujan is a 57 year old male hx of CAD s/p CABG, HTN, CKD, who presented to ER for chest pain. Chest pain started suddenly on day of presentation when he was sleeping, located on mid chest and radiated to left arm, sharp, 9/10. Pt has SOB, nausea, and vomited 3 times, vomiting are clear liquid. Pt also has diaphoresis. He took NTG SL which partial relieved the pain. Pain subside when he got to ER, lasted for about 4 hours. In ER, EKG shows multiple leads ST depression and T wave inversion (I, AVL, V3-V6), troponin positive. Cardio consulted and heparin and NTG drip started per cardio. Patient's trop continued to down-trend His renal function remained at baseline. He underwent left heart catheterization on January 15, which revealed triple- vessel coronary artery disease, status post Hysterectomy with patient, left ventricular ejection fraction was 65% and patient received 2 drug eluting stents to LMCA and proximal ramus. He was also started on Plavix. He was seen and evaluated this morning. He is chest pain-free. He has no shortness of breath or leg swelling. Access site is noted, also right groin area, with evidence of bruising or hematoma collection. His hemoglobin is stable. His other chronic medical conditions remained stable. Discharge home to follow up with primary care doctor and cardiology. Addendum: patient's trop post-cath was resulted -1.46, patient is symptom free and ambulatory. I spoke with Dr. Genao, commissions manager psychologist personnel, who will review the patient and get back to this provider. It is expected to have slightly elevated troponin after LHC and patient has no symptoms He has a cardiology appointment in one week. Discharge discussed with: patient, nurse, social work, case management - Time Spent with Patient Total time spent providing and/or coordinating discharge services: Greater than 30 minutes - Discharge Medications Prescriptions: Atorvastatin [Lipitor] 80 mg PO HS #60 tablet Clopidogrel [Plavix] 75 mg PO DAILY #30 tablet Metoprolol [Lopressor] 50 mg PO BID #60 tablet Home Medications: Amlodipine Besylate 10 mg PO DAILY 12/29/17 [History] Aspirin [Lo-Dose Aspirin EC] 81 mg PO DAILY 12/29/17 [History] Lisinopril [Zestril] 20 mg PO DAILY 12/29/17 [History] Spironolactone [Aldactone] 50 mg PO DAILY 12/29/17 [History] Isosorbide MONOnitrate (24 HR) [Imdur] 30 mg PO DAILY #30 tab.er.24h 12/30/17 [ Rx] Oxycodone HCl/Acetaminophen [Endocet 10-325 mg Tablet] 1 tab PO QID PRN [History] Pregabalin [Lyrica] 200 mg PO HS 12/30/17 [History] Fluticasone Propionate Nasal [Flonase] 50 mcg NS BID 01/13/18 [History] Atorvastatin [Lipitor] 80 mg PO HS #60 tablet 01/16/18 [Rx] Clopidogrel [Plavix] 75 mg PO DAILY #30 tablet 01/16/18 [Rx] Metoprolol [Lopressor] 50 mg PO BID #60 tablet 01/16/18 [Rx] Allergies/Adverse Reactions: 3 Allergy/AdvReac Type Severity Reaction Status Date / Time tramadol [From Ultram] Allergy See Verified 08/20/15 22:09 Comments Date of admission: 01/12/18 20:56 Primary care physician: Mauro Serrano Consults: 01/15/18 17:13 Consult to Cardiac Rehabilitation-Phase1 [CONS] Routine Comment: Reason for Consult: post op PCI Call Completed: Yes Discharging clinician: Benji Cruz Anticipated date of discharge: 01/16/18 - Constitutional Vitals: Temp Pulse Resp BP Pulse Ox 98.3 F 57 16 143/87 97 01/16/18 06:54 01/16/18 06:54 01/16/18 06:54 01/16/18 06:54 01/16/18 06:54 General appearance: Present: A&O X 3, morbidly obese, pleasant, no acute distress, answers questions appropriately - Head Head exam: Present: atraumatic, normocephalic - Eye Eye exam: Present: PERRL, conjuntiva pink, sclera anicteric Pupils: Present: PERRL - Neck Neck exam general surgery: Present: supple, trachea midline. Absent: lymphadenopathy - Respiratory Respiratory exam: Present: CTAB. Absent: accessory muscle use, rales, rhonchi, wheezes - Cardiovascular Cardiovascular exam: Present: RRR, +S1, +S2. Absent: diastolic murmur, gallop, rubs, systolic murmur - GI/Abdominal GI/Abdominal exam: Present: normal bowel sounds, soft, no peritoneal signs. Absent: distended, tenderness - Extremities Exam Extremities exam: Present: warm, radial pulses palpable and symmetrical. Absent : calf tenderness, cyanotic, pedal edema Additional comments: R groin region is bruised, no hematoma collection - Neurological Exam Neurological exam: Present: alert, CN II-XII intact, oriented X3, no focal deficits. Absent: pronater drift, facial droop, speech deficit - Skin Skin exam: Present: dry, intact - Patient Status Disposition: Left Against Medical Advice Condition: Good Functional capacity at discharge: independent ambulation Overall status at discharge: patient is back to baseline - Discharge Instructions Instructions: Metoprolol (By mouth), Atorvastatin (By mouth), Clopidogrel (By mouth), Myocardial Infarction (DC), Chest Pain (DC), Coronary Intravascular Stent Placement (DC), Diabetes Mellitus Type 2 in Adults (DC), Chronic Hypertension (DC), Coronary Intravascular Stent Placement, [employer] Director (GEN) Follow Up With: Mauro Serrano [Primary Care Provider] - 01/21/18 9:00 am Additional Instructions: RISK FACTORS: STOP SMOKING: If you smoke, STOP. Smoking or tobacco use significantly increases your risk of heart disease because nicotine causes the arteries to narrow or constrict. It also causes fats to stick to the artery. Your chances of having a heart attack are greatly increased if you continue to smoke. For more information, call the education line for smoking cessation 6-471-VWXEVYQ EAT A LOW FAT/CHOLESTEROL/SODIUM DIET: This diet may help reduce your chances of having a heart attack. LIFTING: Avoid lifting anything more than 10 pounds for 5-7 days Prior to straining, laughing, sneezing and/or coughing, apply manual pressure directly over insertion site. ACTIVITY: You may walk or climb stairs as tolerated You can resume sexual activity as tolerated In general, you are encouraged to engage in a minimum of 30 minutes or more of moderate intensity physical activity, such as brisk walking, daily or at least 3 -4 times weekly BATHING Do not submerge the site into water (bath tub, hot tub, swimming pool) for 1 week. This can be a source for infection into the blood stream. You may shower after 24 hours SITE CARE: After 24 hours, you may remove the dressing and leave the site open to air. Keep the site clean and dry. Clean gently and pat dry. You can expect bruising and tenderness that gradually resolve within a week or two. Return to work as instructed per your physician Resume driving as instructed per physician Keep all scheduled follow up appointments Resume medications as instructed IMPORTANT: If prescribed a Platelet Aggregation Inhibitor such as, Plavix, Brilinta or Effient: Duration of therapy is minimum one year These medications are often used in combination with Aspirin in prevention of future heart attacks Never discontinue unless consult with your Vba Developer STROKE (CVA) Risk factors for a stroke are: Age, cigarette smoking, diabetes, excessive alcohol consumption, family history, high blood pressure, overweight, physical inactivity, prior stroke, heart attack, diagnosis of carotid artery stenosis or other artery disease. Warning signs: Sudden numbness or weakness of the face, arm or leg; especially on one side of the body, sudden confusion, trouble speaking or understanding, sudden trouble seeing in one or both eyes, sudden trouble walking, dizziness, loss of balance or coordination, sudden severe headache with no cause. Call 911 or go to the Emergency Room. CONGESTIVE HEART FAILURE: If you have been diagnosed with Congestive Heart Failure (CHF) and your symptoms return, make an appointment with your physician Weigh yourself daily. Notify your physician if you have a weight gain of two or more pounds in one day or five or more pounds in one week. If you experience any difficulty breathing, please call 911 BLEEDING: Although the risk of bleeding is minimal, it can happen. If you have any bleeding from the site, apply firm pressure above the puncture site for 10-15 minutes. If the bleeding does not stop, continue manual pressure and call 911 Contact your physician if: You develop a fever greater than 101 degrees Fahrenheit Your site becomes reddened or has any drainage You have an increase in pain or burning at the site or if a large knot forms at the site. If you experience chest pain, shortness of breath, dizziness, or extreme tiredness, stop the activity and rest. Please notify your physicians office if you experience any of these symptoms and they are not relieved by rest please call 911! - Diet and Activity Activity: resume usual activities as tolerated Diet: low salt diet
[2018-01-16 12:00] VITALS: BP 112/60
[2018-01-16] MEDS ORDERED: amLODIPine 5 MG TABLET PO ONE (21:26)
--- NOTE | 2018-01-17 16:17 | Electrocardiograph Report ---
[address] [place] [address] Test Date: 2018-01-15 Pat Name: Freddy Tai Department: 106 Room: 2NE21 Gender: M Case Briefer: : 1960 Requested By: Lynn Leblanc Order Number: [id number] Reading MD: Lovely Guillory Measurements Intervals [place] Rate: 96 P: 35 [place]: 163 QRS: 45 QRSD: 102 T: 111 QT: 355 QTc: 409 Interpretive Statements SINUS RHYTHM POSSIBLE INFERIOR MYOCARDIAL INFARCTION, PROBABLY OLD WITH POSTERIOR EXTENSION MODERATE T-WAVE ABNORMALITY, CONSIDER ANTEROLATERAL ISCHEMIA Electronically Signed On 01-17-2018 16:16:04 EST by Lovely Guillory
--- NOTE | 2018-01-18 08:58 | Electrocardiograph Report ---
[place] [address] Test Date: 2018-01-12 Pat Name: Freddy Tai Department: 103 Room: 2NE21 Gender: M Material Planning Analyst: MONALISA : 1960 Requested By: Mathew Buckner Order Number: [id number] Reading MD: Felix Muñoz DO Measurements Intervals [place] Rate: 73 P: 18 SC: 169 QRS: 25 QRSD: 108 T: 164 QT: 383 QTc: 408 Interpretive Statements SINUS RHYTHM ST-T changes suggestive of anerolateral ischemia Electronically Signed On 01-18-2018 8:56:59 EST by Felix Muñoz DO
--- NOTE | 2018-01-18 09:18 | Electrocardiograph Report ---
[place] [address] Test Date: 2018-01-13 Pat Name: Freddy Lujan Department: 111 Room: 2NE21 Gender: M Podiatrist Orthopedic: [id number] : 1960 Requested By: Jose Keenan Order Number: [id number] Reading MD: Felix Muñoz DO Measurements Intervals [place] Rate: 53 P: 9 ND: 187 QRS: 46 QRSD: 108 T: 168 QT: 432 QTc: 414 Interpretive Statements SINUS BRADYCARDIA ST DEVIATION AND MARKED T-WAVE ABNORMALITY, CONSIDER ANTEROLATERAL ISCHEMIA Electronically Signed On 01-18-2018 9:16:14 EST by Felix Muñoz DO
== END 2018-01-16 15:28 | disposition left against medical advice (07) | DRG 174 ==
LOC: 2NENU 17:27 → EMEROO 17:27 → 2NENU 20:14
PROVIDERS: ADMIT Nurse Practitioner Family; ATTEND Internal Medicine

== ENCOUNTER 2018-04-23 10:25 | Observation (INO) ==
--- NOTE | 2018-04-23 10:45 | Emergency Department Note ---
Disposition Clinical Impression: Chest pain, rule out acute myocardial infarction Disposition: Admitted As Inpatient Condition: Fair Chest Pain HPI - General Chief Complaint: ED Chest Pain Stated Complaint: poss stemi Time Seen by Provider: 04/23/18 10:28 Source: patient, EMS Limitations: no limitations Vital Signs Reviewed: Yes Nursing Notes Reviewed: Yes - History of Present Illness HPI Narrative: 57-year-old male presents emergency Department with concerns of acute onset chest pain. Patient states pain started acutely. This feels similar to his previous IN. Chest pain improved with nitroglycerin with EMS. Patient described the pain as a pressure in the center of his chest that did not radiate. Denies other fever, chills, cough or other recent trauma. Patient has a history of multiple stents in place, and takes Plavix but no other blood thinners. Severity scale (1-10): 0 - Related Data Home Medications Medication Instructions Recorded Confirmed Amlodipine Besylate 10 mg PO DAILY 12/29/17 04/23/18 Aspirin [Lo-Dose Aspirin EC] 81 mg PO DAILY 12/29/17 04/23/18 Lisinopril [Zestril] 20 mg PO DAILY 12/29/17 04/23/18 Spironolactone [Aldactone] 50 mg PO DAILY 12/29/17 04/23/18 Oxycodone HCl/Acetaminophen 1 tab PO QID PRN 12/30/17 04/23/18 [Endocet 10-325 mg Tablet] Pregabalin [Lyrica] 200 mg PO HS 12/30/17 04/23/18 Fluticasone Propionate Nasal 50 mcg NS BID 01/13/18 04/23/18 [Flonase] Nitroglycerin [Nitrostat] 0.4 mg SL Q5MIN PRN 04/23/18 04/23/18 Previous Rx's Medication Instructions Recorded Isosorbide MONOnitrate (24 HR) 30 mg PO DAILY #30 tab.er.24h 12/30/17 [Imdur] Atorvastatin [Lipitor] 80 mg PO HS #60 tablet 01/16/18 Clopidogrel [Plavix] 75 mg PO DAILY #30 tablet 01/16/18 Metoprolol [Lopressor] 50 mg PO BID #60 tablet 01/16/18 Allergies Allergy/AdvReac Type Severity Reaction Status Date / Time tramadol [From Ultram] Allergy See Verified 04/23/18 11:06 Comments All systems ED: reviewed and negative except as stated. Review of Systems: As Per HPI Chest Pain PMH - Past Medical History Medical history: Reports: coronary artery disease, CVA, diabetes, hyperlipidemia , hypertension, myocardial infarction, renal disease, other Surgical history: Reports: coronary bypass (CABG) Psychiatric history: Reports: no psych history - Social History Smoking Status: Never smoker Alcohol use: Reports: occasionally Drug use: Reports: none Physical Exam General: Alert and in no acute distress Skin: Warm, dry, intact Head: Normocephalic and atraumatic Neck: Supple, trachea midline and no tenderness Cardiovascular: RRR, no murmur, normal perfusion Respiratory: CTAB, no wheezing, cough, or respiratory distress Musculoskeletal: Normal strength, no tenderness, swelling or deformity GI: Soft, nontender, nondistended. Bowel sounds present Neuro: A&O to person, place, time and situation. No focal deficits noted on exam Psychiatric: cooperative and appropriate mood and affect. - General Limitations: no limitations General appearance: alert, in no apparent distress Course Vital Signs Temperature 98.1 F 04/23/18 10:30 Pulse Rate 91 04/23/18 10:30 Respiratory Rate 18 04/23/18 10:30 Blood Pressure 179/112 04/23/18 10:30 O2 Sat by Pulse Oximetry 95 04/23/18 10:30 Temperature 97.5 F L 04/23/18 19:08 Pulse Rate 71 04/23/18 19:08 Respiratory Rate 17 04/23/18 19:08 Blood Pressure 128/68 04/23/18 19:08 O2 Sat by Pulse Oximetry 93 04/23/18 19:08 Oxygen Delivery Oxygen Delivery Nasal Cannula Chest Pain - MDM Narrative Medical decision making narrative: Patient pain improved after nitroglycerin administered by EMS. Patient is pain- free in the emergency department. - Medical Records Medical records reviewed: Yes I reviewed the patient's medical records. - Lab Data Lab results reviewed: Yes I reviewed the patient's lab results. Result diagrams: 04/23/18 10:38 04/23/18 10:38 Lab Results 04/23/18 04/23/18 04/23/18 Range/Units 10:38 10:38 10:38 WBC 13.7 H (4.3-11.1) K/mcL RBC 5.59 H (4.19-5.50) M/mcL Hgb 16.6 (12.9-16.9) g/dL Hct 48.8 (37.5-50.1) % MCV 87.3 (83.0-100.0) fL MCH 29.7 (28.0-33.3) pg MCHC 34.0 (31.6-35.5) g/dL RDW 12.7 (11.5-14.5) % Plt Count 310 (140-400) K/mcL MPV 9.7 (9.4-12.4) fL Immature Gran % 0.5 (0-4) % Seg Neutrophils % 79.3 % Lymphocytes % 10.2 % Monocytes % 7.5 % Eosinophils % 2.1 % Basophils % 0.4 % Neutrophils # 10.9 H (1.6-8.9) K/mcL Lymphocytes # 1.4 (0.6-4.6) K/mcL Monocytes # 1.0 (0.0-1.3) K/mcL Eosinophils # 0.3 (0.0-0.6) K/mcL Basophils # 0.1 (0.0-0.2) K/mcL PT 10.0 (9.4-12.1) Seconds INR 0.9 APTT 32.6 (26.0-36.0) Seconds Sodium 136 (136-145) mEq/L Potassium 3.9 (3.5-5.1) mEq/L Chloride 107 (98-107) mEq/L Carbon Dioxide 19 L (23-29) mEq/L BUN 24 H (6-20) mg/dL Creatinine 1.38 H (0.70-1.30) mg/dL Est GFR ( Amer) > 60 (> 60) Est GFR (Non-Af Amer) 53 L (> 60) BUN/Creatinine Ratio 17 (6-26) Glucose 134 H (70-105) mg/dL Calculated Osmolality 288 (280-300) Calcium 9.3 (8.6-10.3) mg/dL Troponin I < 0.03 (< 0.04) ng/mL - Radiology Data Radiology results reviewed: Yes I reviewed the patient's radiology results. - EKG Data EKG attestation: Yes I reviewed and interpreted this EKG. EKG results narrative: EKG shows a normal sinus rhythm with a rate of 93 with no evidence of STEMI.
[2018-04-23 10:54] LABS: Basophils # 0.1 K/mcL (0.0-0.2); Basophils % 0.4 %; Eosinophils # 0.3 K/mcL (0.0-0.6); Eosinophils % 2.1 %; Hematocrit 48.8 % (37.5-50.1); Hemoglobin 16.6 g/dL (12.9-16.9); Immature Granulocytes % 0.5 % (0-4); Lymphocytes # 1.4 K/mcL (0.6-4.6); Lymphocytes % 10.2 %; Mean Corpuscular Hemoglobin 29.7 pg (28.0-33.3); Mean Corpuscular Volume 87.3 fL (83.0-100.0); Mean Platelet Volume 9.7 fL (9.4-12.4); Monocytes % 7.5 %; Neutrophils # 10.9 K/mcL (1.6-8.9); Platelet Count 310 K/mcL (140-400); Red Blood Count 5.59 M/mcL (4.19-5.50); Red Cell Distribution Width 12.7 % (11.5-14.5); Segmented Neutrophils % 79.3 %
[2018-04-23 10:57] LABS: INR 0.9
[2018-04-23 11:00] LABS: Activated Partial Thrombo Time 32.6 Seconds (26.0-36.0)
[2018-04-23 11:10] LABS: Troponin I < 0.03 ng/mL (< 0.04)
[2018-04-23 11:39] LABS: BUN/Creatinine Ratio 17 (6-26); Blood Urea Nitrogen 24 mg/dL (6-20); Calcium 9.3 mg/dL (8.6-10.3); Carbon Dioxide 19 mEq/L (23-29); Chloride 107 mEq/L (98-107); Glucose 134 mg/dL (70-105); Osmolality,Calculated 288 (280-300); Potassium 3.9 mEq/L (3.5-5.1); Sodium 136 mEq/L (136-145); eGFR For African Americans > 60 (> 60); eGFR For Non-African Americans 53 (> 60)
--- NOTE | 2018-04-23 12:06 | Cardiology Consult Note ---
<Esau Monzon - Last Filed: 04/23/18 12:16> Date of Encounter: 04/23/18 Time of Encounter: 12:05 Assessment and Plan (1) Chest pain Current Visit: No Status: Acute EKG unchanged from previous. EKG shows NSR with ST changes unchanged from and ST elevation in lead II. Compared to EKG from 01/12/18 EKG improved. Troponin negative. Chest pain is atypical. Appears to have GI component, pain starts when he lays flat and associated with nausea. Add PPI. Reports he is taking all of his medications. Check TTE and trend troponin. Qualifiers: Chest pain type: unspecified Qualified Code(s): R07.9 - Chest pain, unspecified (2) CAD (coronary artery disease) Current Visit: No Status: Chronic H/o 2V CABG s/p recent NSTEMI. LHC revealed triple vessel CAD, s/p CABG 2/2 patent bypass grafts, EF 65%, successful PTCA/MARTA in LMCA and prox Ramus. TTE- LVEF 60%. Mild left ventricular diastolic dysfunction. Definity echo contrast was used. Normal right ventricular structure and function. No significant valvular dysfunction. Lack of TR gradient to estimate RVSP. Continue asa, plavix, statin, and bb, and imdur. Qualifiers: Coronary Disease-Associated Artery/Lesion type: unspecified vessel or lesion type [place] vs. transplanted heart: [place] heart Associated angina: with stable angina Qualified Code(s): I25.118 - Atherosclerotic heart disease of [place] coronary artery with other forms of angina pectoris (3) Hypertension Current Visit: No Status: Chronic Uncontrolled hypertension. Restart home medications and adjust as needed. Qualifiers: Hypertension type: essential hypertension Qualified Code(s): I10 - Essential (primary) hypertension Discussion w patient/family: The assessment and plan as outlined above was discussed with the patient and/or family members who expressed understanding and agreement. All questions were answered. Thank you for involving us in the care of your patient. Please call with any questions. History of Present Illness Consult date: 04/23/18 Requesting physician: Jn Dennis Consult reason: abnormal EKG, chest pain Chief complaint: Chest pain at night. "I ran out of my NTG." History of present illness: Mr. Lujan is a 57 year old male with past medical history of [place], 2V CABG, recent PCI, HTN, and DM who presents from home with chest pain associated with nausea. He was given SL NTG in the EMS with releif of his pain. Reports having chest pain for several months and he takes SL NTG 1-2 times a day. His pain is described as a midsternal pressure that occurs when he lays flat. He ran out of his NTG yesterday. He was here two weeks ago with the same complaint that he ran out of NTG. He left AMA. It is noted that he is active doing yard work and other physical activity with-out symptoms. His ekg shows changes concerning for ischemia but not significantly changed from EKG taken 04/10/18 when he left AMA and 12/2017 when he was hospitalized for NSTEMI. He states that he is taking all of his cardiac medications. On my exam he is chest pain free. Past Med Surg Social Fam HX - Past Medical History Attestation: Yes The following information was validated with the patient. Medical history: coronary artery disease, CVA, diabetes, hyperlipidemia, hypertension, myocardial infarction, renal disease, other Psychiatric history: no psych history - Past Surgical History Surgical History: coronary bypass (CABG) - Social History Smoking Status: Never smoker Smokeless Tobacco Status: No Alcohol use: occasionally Drug use: none - Family History Mother Living Status: Hx Family Cancer: Yes (Lung) Father Living Status: Hx Family Cardiac Disorders: Yes Hx Family Respiratory Disorders: No Hx Family Cancer: No Hx Family GI Disorders: No Hx Family Endocrine Disorder: Yes (DM) Hx Family Neuromuscular Disorders: No Hx Family Neurologic Disorders: No Hx Family HEENT Disorders: No Hx Family Autoimmune Disorders: No Medications and Allergies Amlodipine Besylate 10 mg PO DAILY 12/29/17 [History] Aspirin [Lo-Dose Aspirin EC] 81 mg PO DAILY 12/29/17 [History] Lisinopril [Zestril] 20 mg PO DAILY 12/29/17 [History] Spironolactone [Aldactone] 50 mg PO DAILY 12/29/17 [History] Isosorbide MONOnitrate (24 HR) [Imdur] 30 mg PO DAILY #30 tab.er.24h 12/30/17 [ Rx] Oxycodone HCl/Acetaminophen [Endocet 10-325 mg Tablet] 1 tab PO QID PRN [History] Pregabalin [Lyrica] 200 mg PO HS 12/30/17 [History] Fluticasone Propionate Nasal [Flonase] 50 mcg NS BID 01/13/18 [History] Atorvastatin [Lipitor] 80 mg PO HS #60 tablet 01/16/18 [Rx] Clopidogrel [Plavix] 75 mg PO DAILY #30 tablet 01/16/18 [Rx] Metoprolol [Lopressor] 50 mg PO BID #60 tablet 01/16/18 [Rx] Nitroglycerin [Nitrostat] 0.4 mg SL Q5MIN PRN 04/23/18 [History] 3 Allergy/AdvReac Type Severity Reaction Status Date / Time tramadol [From Ultram] Allergy See Verified 04/23/18 11:06 Comments All Systems Review: The remainder of the systems were reviewed and are negative Physical Examination Vital Signs, Last 4 Hours Temp Pulse Resp BP Pulse Ox 04/23/18 11:18 84 18 166/105 96 04/23/18 10:43 88 18 156/92 96 04/23/18 10:40 87 18 181/130 96 04/23/18 10:33 97 04/23/18 10:30 98.1 F 91 18 179/112 95 General: Conversant, No Apparent Distress HEENT: Atraumatic, Normocephaly, Mucus Membranes Moist Neck: No JVD, Normal carotid pulses Cardiac: Reg Rate and Rhythm, Normal S1 and S2, No Murmur Lungs: Normal Breath Sounds, No Wheeze, Rales, Rhonchi Neuro: Alert and responsive, No focal deficits noted Abdomen: Soft, Non-Tender, Other (abdomen large ) Skin: No rashes noted on visualized skin Musculoskeletal: No Chest Wall Tenderness Extremities: No Clubbing, No Cyanosis, No Edema, Normal Pulses Results 04/23/18 10:38 04/23/18 10:38 Lab Results 04/23/18 04/23/18 04/23/18 10:38 10:38 10:38 WBC 13.7 H Hgb 16.6 Hct 48.8 Plt Count 310 INR 0.9 APTT 32.6 Sodium 136 Potassium 3.9 Chloride 107 Carbon Dioxide 19 L BUN 24 H Creatinine 1.38 H Glucose 134 H Calcium 9.3 Troponin I < 0.03 - Imaging and Cardiology Echo: report reviewed Cardiac cath: report reviewed - EKG Interpretation EKG results cardiology: personally reviewed Consult Discharge Plan - Plan <Karon Genao - Last Filed: 04/23/18 13:39> Date of Encounter: 04/23/18 - Attending Attestation I have personally performed a face to face evaluation on this patient. I have reviewed and agree with the care plan. History and Exam by me shows: 57 yom s/p recent PCI to ramus/left main here with chest pain only at night when he lays down relieved with NTG. Possible reflux with esophageal spasm Vs cardiac. Stress test to r/o ischmia as a culprit as well as start PPI Assessment and Plan Discussion w patient/family: The assessment and plan as outlined above was discussed with the patient and/or family members who expressed understanding and agreement. All questions were answered. Thank you for involving us in the care of your patient. Please call with any questions. History of Present Illness History of present illness: Mr. Lujan is a 57 year old male All Systems Review: The remainder of the systems were reviewed and are negative Physical Examination Vital Signs, Last 4 Hours Temp Pulse Resp BP Pulse Ox 04/23/18 13:19 97.7 F 72 18 154/83 96 Results 04/23/18 10:38 04/23/18 10:38
[2018-04-23] MEDS ORDERED: Nitroglycerin 0.4 MG TAB.SUBL SL PRN (12:50)
[2018-04-23] MEDS ORDERED: Acetaminophen 325 MG TABLET PO PRN (12:59)
[2018-04-23] MEDS ORDERED: *HR* Promethazine 25 MG/ML VIAL IVP PRN (12:59)
[2018-04-23] MEDS ORDERED: *HR* HYDROcodone/Acet 5/325 mg TABLET PO PRN (12:59)
[2018-04-23] MEDS ORDERED: Naloxone 0.4 MG/ML INJ IVP PRN (12:59)
[2018-04-23] MEDS ORDERED: *HR* OxyCODONE Immed Rel 5 MG TABLET PO PRN (12:59)
[2018-04-23] MEDS ORDERED: Ondansetron 4 MG/2 ML VIAL IVP PRN (12:59)
[2018-04-23] MEDS ORDERED: Isosorbide MONOnitrate (24 HR) 30 MG TAB.ER.24H PO SCH (13:00)
--- NOTE | 2018-04-23 14:15 | Internal Med History&Physical ---
Date of Encounter: 04/23/18 Time of Encounter: 13:00 Internal Medicine - H&P: HPI Chief complaint: Chest pain Admitted From: Emergency Dept Plans for Post Hospital Care: Home History of present illness: Mr. Lujan is a 57 year old male with past medical history of HTN, DM2, [place], and 2V CABG, recent PCI on ,presented to ER with chest pain associated with nausea. He was given SL NTG in the EMS with releif of his pain. Reports having chest pain when tried to lie down for several months and he takes SL NTG 1-2 times a day. His pain is described as a midsternal pressure that occurs when he lays flat. He ran out of his NTG yesterday. He was here two weeks ago with the same complaint that he ran out of NTG. He left AMA. It is noted that he is active doing yard work and other physical activity with-out symptoms. Pt denied any active CP now. Denied any SOB / No pedal edema. Past Med Surg Social Fam HX - Past Medical History Medical history: coronary artery disease, CVA, diabetes, hyperlipidemia, hypertension, myocardial infarction, renal disease, other Psychiatric history: no psych history - Past Surgical History Surgical History: coronary bypass (CABG) - Social History Smoking Status: Never smoker Smokeless Tobacco Status: No Alcohol use: occasionally Drug use: none - Family History Mother Living Status: Hx Family Cancer: Yes (Lung) Father Living Status: Hx Family Cardiac Disorders: Yes Hx Family Respiratory Disorders: No Hx Family Cancer: No Hx Family GI Disorders: No Hx Family Endocrine Disorder: Yes (DM) Hx Family Neuromuscular Disorders: No Hx Family Neurologic Disorders: No Hx Family HEENT Disorders: No Hx Family Autoimmune Disorders: No Internal Medicine - H&P: Meds Amlodipine Besylate 10 mg PO DAILY 12/29/17 [History] Aspirin [Lo-Dose Aspirin EC] 81 mg PO DAILY 12/29/17 [History] Lisinopril [Zestril] 20 mg PO DAILY 12/29/17 [History] Spironolactone [Aldactone] 50 mg PO DAILY 12/29/17 [History] Isosorbide MONOnitrate (24 HR) [Imdur] 30 mg PO DAILY #30 tab.er.24h 12/30/17 [ Rx] Oxycodone HCl/Acetaminophen [Endocet 10-325 mg Tablet] 1 tab PO QID PRN [History] Pregabalin [Lyrica] 200 mg PO HS 12/30/17 [History] Fluticasone Propionate Nasal [Flonase] 50 mcg NS BID 01/13/18 [History] Atorvastatin [Lipitor] 80 mg PO HS #60 tablet 01/16/18 [Rx] Clopidogrel [Plavix] 75 mg PO DAILY #30 tablet 01/16/18 [Rx] Metoprolol [Lopressor] 50 mg PO BID #60 tablet 01/16/18 [Rx] Nitroglycerin [Nitrostat] 0.4 mg SL Q5MIN PRN 04/23/18 [History] 3 Allergy/AdvReac Type Severity Reaction Status Date / Time tramadol [From Ultram] Allergy See Verified 04/23/18 11:06 Comments All Systems PM: A 10-system review of systems was performed and is negative for pertinent findings except as documented above in the HPI. Review of systems: All the systems are reviewed everything is benign except the systems and symptoms I mentioned in the history of present illness - Constitutional Vitals: Temp Pulse Resp BP Pulse Ox 97.7 F 72 18 154/83 96 04/23/18 13:19 04/23/18 13:19 04/23/18 13:19 04/23/18 13:19 04/23/18 13:19 General appearance: Present: A&O X 3, no acute distress, answers questions appropriately - Head Head exam: Present: atraumatic, normal inspection - Neck Neck exam general surgery: Present: supple - Respiratory Respiratory exam: Present: decreased breath sounds. Absent: rales, respiratory distress, rhonchi, wheezes - Cardiovascular Cardiovascular exam: Present: RRR, +S1, +S2. Absent: tachycardia - GI/Abdominal GI/Abdominal exam: Present: normal bowel sounds, soft. Absent: rebound, rigid, tenderness - Extremities Exam Extremities exam: Absent: calf tenderness, pedal edema, tenderness - Back Exam Back exam: Absent: CVA tenderness (L), CVA tenderness (R) - Neurological Exam Neurological exam: Present: alert, oriented X3 - Psychiatric Psychiatric exam: Present: normal affect, normal mood Internal Med - H&P Results - Labs CBC & Chem 7: 04/23/18 10:38 04/23/18 10:38 - Assessment and plan (1) Chest pain Current Visit: No Status: Acute Assessment and plan: Place the pt into Tele for observation Reviewed EKG unchanged from past. T wave inversions noticed in inferior leads So far negative troponin his CP seems to be atypical.. he c/o CP at night time when lie down only could be some non cardiac problem however with his h/o CAD s/p recent PCI he is high risk pt for ACS will get stress test in AM Card consulted trend on troponin Qualifiers: Chest pain type: unspecified Qualified Code(s): R07.9 - Chest pain, unspecified (2) CAD (coronary artery disease) Current Visit: No Status: Chronic Assessment and plan: resumed all home meds Qualifiers: Coronary Disease-Associated Artery/Lesion type: unspecified vessel or lesion type [place] vs. transplanted heart: [place] heart Associated angina: with stable angina Qualified Code(s): I25.118 - Atherosclerotic heart disease of [place] coronary artery with other forms of angina pectoris (3) CKD (chronic kidney disease) Current Visit: No Status: Chronic Assessment and plan: CKD-2 Cr at baseline avoid any nephro toxic meds Qualifiers: Chronic kidney disease stage: stage 3 (moderate) Qualified Code(s): N18.3 - Chronic kidney disease, stage 3 (moderate) (4) Diabetes mellitus type 2 in obese Current Visit: No Status: Chronic Assessment and plan: ISS and ADA diet check HbA1C (5) Hypertension Current Visit: No Status: Chronic Assessment and plan: resumed all home meds Qualifiers: Hypertension type: essential hypertension Qualified Code(s): I10 - Essential (primary) hypertension (6) Morbid obesity Current Visit: No Status: Chronic Assessment and plan: counseled to loose weight - Time Spent With Patient Total time spent is greater than 50% in coordination of care (as documented) at patient's floor/unit and/or counseling patient:
[2018-04-23] MEDS ORDERED: *HR* Dextrose 50 % in Water (Syg) 50 ML SYRINGE IVP PRN (14:24)
[2018-04-23] MEDS ORDERED: Dextrose Gel 15 GM/37.5 ML TUBE PO PRN ×2 (14:24)
[2018-04-23] MEDS ORDERED: D5% in Water 1,000 ML IVC PRN (14:24)
[2018-04-23] MEDS: Aspirin Enteric Coated 81 MG Tablet PO SCH (14:25)
[2018-04-23] MEDS: Lisinopril 20 MG TABLET PO SCH (14:26)
[2018-04-23] MEDS: amLODIPine 5 MG TABLET PO SCH (14:26)
[2018-04-23] MEDS: Isosorbide MONOnitrate (24 HR) 30 MG TAB.ER.24H PO SCH (14:26)
[2018-04-23 17:19] LABS: Estimated Average Glucose 126 mg/dl
[2018-04-23] MEDS: Insulin LISPRO 300 UNITS/3 ML VIAL SQ SCH (17:49)
[2018-04-23] MEDS: Pregabalin 50 MG CAPSULE PO SCH (23:35)
[2018-04-24] MEDS ORDERED: Regadenoson 0.4 MG/5 ML SYRINGE IVP ONE (05:52)
[2018-04-24 07:18] LABS: Basophils # 0.1 K/mcL (0.0-0.2); Basophils % 0.8 %; Eosinophils # 0.6 K/mcL (0.0-0.6); Eosinophils % 5.4 %; Hematocrit 45.2 % (37.5-50.1); Lymphocytes # 2.2 K/mcL (0.6-4.6); Lymphocytes % 18.8 %; Mean Corpuscular HGB Conc 32.5 g/dL (31.6-35.5); Mean Corpuscular Hemoglobin 28.9 pg (28.0-33.3); Mean Corpuscular Volume 88.8 fL (83.0-100.0); Mean Platelet Volume 9.3 fL (9.4-12.4); Monocytes # 1.1 K/mcL (0.0-1.3); Monocytes % 9.3 %; Neutrophils # 7.7 K/mcL (1.6-8.9); Platelet Count 305 K/mcL (140-400); Red Blood Count 5.09 M/mcL (4.19-5.50); Red Cell Distribution Width 12.9 % (11.5-14.5); Segmented Neutrophils % 64.7 %
[2018-04-24 07:37] LABS: Hemoglobin 14.7 g/dL (12.9-16.9)
[2018-04-24 07:40] LABS: Potassium 3.8 mEq/L (3.5-5.1)
[2018-04-24 07:41] LABS: Chol/HDL Ratio 5.6 (0-4.9)
[2018-04-24] MEDS: Insulin LISPRO 300 UNITS/3 ML VIAL SQ SCH ×3 (07:45→17:36)
[2018-04-24] MEDS: Isosorbide MONOnitrate (24 HR) 30 MG TAB.ER.24H PO SCH (10:38)
[2018-04-24] MEDS: Aspirin Enteric Coated 81 MG Tablet PO SCH (10:39)
[2018-04-24] MEDS: amLODIPine 5 MG TABLET PO SCH (10:39)
[2018-04-24] MEDS: Lisinopril 20 MG TABLET PO SCH (10:39)
--- NOTE | 2018-04-24 13:07 | Internal Med Progress Note ---
Date of Encounter: 04/24/18 Time of Encounter: 13:06 - Assessment and plan (1) Chest pain Current Visit: No Status: Acute Assessment and plan: Patient presented with atypical chest pain, aggravated while lying flat. Appears to have GI component that is also associated with nausea, history of GERD. EKG reviewed with no changes compared to prior EKGs per my assessment Troponins negative 3, history of severe CAD, history of two-vessel CABG, [facility] which shows 2/2 patent bypass grafts, lesions stented in both the LMCA and proximal ramus Cardiology seeing in consultation-defer to cardiology for further recommendations Patient undergoing 2 day stress test, stress test completed today awaiting further stress test tomorrow Continuous telemetry Qualifiers: Chest pain type: unspecified Qualified Code(s): R07.9 - Chest pain, unspecified (2) CAD (coronary artery disease) Current Visit: No Status: Chronic Assessment and plan: History of CVA D, to the CABG [facility] 01/15/18 with triple-vessel CAD, 01/23 and bypass graft status post CABG, received 2 stents during this time to LMCA and proximal ramus, TTE with LVEF 60%, mild left ventricular diastolic dysfunction, normal right ventricular structure and function, no significant valvular dysfunction Continue cardiac medications including aspirin, Plavix, statin, beta kay and Imdur See further planning above. Qualifiers: Coronary Disease-Associated Artery/Lesion type: unspecified vessel or lesion type [place] vs. transplanted heart: [place] heart Associated angina: with stable angina Qualified Code(s): I25.118 - Atherosclerotic heart disease of [place] coronary artery with other forms of angina pectoris (3) Diabetes mellitus type 2 in obese Current Visit: No Status: Chronic Assessment and plan: Patient is a type II diabetic Does not take insulin or oral hypoglycemic agents ISS and ADA diet HbA1C 6.0 (4) Hypertension Current Visit: No Status: Chronic Assessment and plan: History of HTN, blood pressure stable, continue anti-HTN medications Qualifiers: Hypertension type: essential hypertension Qualified Code(s): I10 - Essential (primary) hypertension (5) CKD (chronic kidney disease) Current Visit: No Status: Chronic Assessment and plan: CKD-2 Cr stable and had patient's baseline Continue to monitor renal function, recheck labs in the morning avoid nephrotoxins Qualifiers: Chronic kidney disease stage: stage 3 (moderate) Qualified Code(s): N18.3 - Chronic kidney disease, stage 3 (moderate) (6) Morbid obesity Current Visit: No Status: Chronic Assessment and plan: Discussed weight loss and lifestyle modifications as well as impact of obesity on health - Time Spent With Patient Total time spent is greater than 50% in coordination of care (as documented) at patient's floor/unit and/or counseling patient: 25 - 35 minutes - Subjective Interval history: Mr. Lujan is a 57 year old male with past medical history of HTN, DM2, [place], and 2V CABG, recent PCI on ,presented to ER with chest pain associated with nausea. He was given SL NTG in the EMS with releif of his pain. Reports having chest pain the last several months, aggravated by lying flat. Has not had a return of chest pain since admission. Patient seen and examined at bedside today, no acute changes overnight. Reporting that the chest pain has subsided and not returned. Does have a history of GERD. - Constitutional Vitals: Temp Pulse Resp BP Pulse Ox 97.5 F L 62 17 100/60 98 04/24/18 12:04 04/24/18 12:04 04/24/18 12:04 04/24/18 12:04 04/24/18 12:04 General appearance: Present: A&O X 3, morbidly obese, no acute distress, answers questions appropriately - Head Head exam: Present: atraumatic, normocephalic - Eye Eye exam: Present: PERRL, conjuntiva pink, sclera anicteric Pupils: Present: PERRL - Neck Neck exam general surgery: Present: supple, trachea midline. Absent: lymphadenopathy - Respiratory Respiratory exam: Present: CTAB. Absent: accessory muscle use, rales, rhonchi, wheezes - Cardiovascular Cardiovascular exam: Present: RRR, +S1, +S2. Absent: diastolic murmur, gallop, rubs, systolic murmur - GI/Abdominal GI/Abdominal exam: Present: normal bowel sounds, soft, no peritoneal signs. Absent: distended, tenderness - Extremities Exam Extremities exam: Present: warm, radial pulses palpable and symmetrical. Absent : calf tenderness, cyanotic, pedal edema - Neurological Exam Neurological exam: Present: CN II-XII intact, oriented X3, no focal deficits. Absent: pronater drift, facial droop, speech deficit - Skin Skin exam: Present: dry, intact Internal Medicine: Result - Labs CBC & Chem 7: 04/24/18 06:37 04/24/18 06:37 Labs: Short CBC 04/24/18 Range/Units 06:37 WBC 11.9 H (4.3-11.1) K/mcL Hgb 14.7 D (12.9-16.9) g/dL Hct 45.2 (37.5-50.1) % Plt Count 305 (140-400) K/mcL Neutrophils # 7.7 (1.6-8.9) K/mcL BMP 04/24/18 06:37 Sodium 139 Potassium 3.8 Chloride 108 H Carbon Dioxide 25 BUN 28 H Creatinine 1.49 H Glucose 106 H Calcium 9.0 Cardiac Enzymes 04/23/18 04/23/18 Range/Units 16:37 22:23 Troponin I < 0.03 < 0.03 (< 0.04) ng/mL - ABG Interpretation ABG results: PT/INR, D-dimer PT 10.0 Seconds (9.4-12.1) 04/23/18 10:38 Consult Discharge Plan - Plan Referrals: Mauro Serrano [Primary Care Provider] -
--- NOTE | 2018-04-24 15:02 | Electrocardiograph Report ---
[address] [place] [address] Test Date: 2018-04-23 Pat Name: Freddy Tai Department: 103 Room: 3B66 Gender: M Simulation Specialist: SHARATH : 1960 Requested By: Jn Dennis Order Number: [id number] Reading MD: Lovely Guillory Measurements Intervals [place] Rate: 93 P: 7 [place]: 185 QRS: 29 QRSD: 110 T: 136 QT: 354 QTc: 405 Interpretive Statements SINUS RHYTHM POSSIBLE INFERIOR MYOCARDIAL INFARCTION [30 ms Q WAVE IN II/aVF], PROBABLY OLD MODERATE T-WAVE ABNORMALITY, CONSIDER LATERAL ISCHEMIA [-0.1+ mV T WAVE IN I/aVL/V5/V6] Electronically Signed On 04-24-2018 15:01:15 EDT by Lovely Guillory
--- NOTE | 2018-04-24 15:43 | Cardiology Progress Note ---
Date of Encounter: 04/24/18 Time of Encounter: 15:40 Assessment and Plan (1) Chest pain Current Visit: No Status: Acute EKG unchanged from previous. EKG shows NSR with ST changes in te inferiolateral leads and ST elevation in lead II. Compared to EKG from 01/12/18 EKG is improved. Troponin negative x3. Chest pain is atypical. Appears to have GI component, pain starts when he lays flat and associated with nausea. PPI added today. Reports he is taking all of his medications except that he ran out of NTG SL tablets. Reports taking that he was taking 1-2 tablets daily for several months. Two day stress test is pending. Further recommendation to follow. Qualifiers: Chest pain type: unspecified Qualified Code(s): R07.9 - Chest pain, unspecified (2) CAD (coronary artery disease) Current Visit: No Status: Chronic H/o 2V CABG s/p recent NSTEMI. LHC 01/15/18 revealed triple vessel CAD, s/p CABG 2/2 patent bypass grafts (DOUGLAS-LAD, SVG-OM). Severe diffuse disease in the RCA and is a tortuous vessel, EF 65%. He received successful PTCA/MARTA in LMCA and prox Ramus. TTE- LVEF 60%. Mild left ventricular diastolic dysfunction. Definity echo contrast was used. Normal right ventricular structure and function. No significant valvular dysfunction. Lack of TR gradient to estimate RVSP. Continue asa, plavix, statin, and bb, and imdur. Stress pending. Qualifiers: Coronary Disease-Associated Artery/Lesion type: unspecified vessel or lesion type [place] vs. transplanted heart: [place] heart Associated angina: with stable angina Qualified Code(s): I25.118 - Atherosclerotic heart disease of [place] coronary artery with other forms of angina pectoris (3) Hypertension Current Visit: No Status: Chronic Uncontrolled hypertension on admission. Restart home medications and b/p normalized. Discussed compliance with medications and he states he is taking his prescribed meds. (ER note states he initially stated he was not taking some meds. ) Continue to monitor. Qualifiers: Hypertension type: essential hypertension Qualified Code(s): I10 - Essential (primary) hypertension Discussion w patient/family: The assessment and plan as outlined above was discussed with the patient and/or family members who expressed understanding and agreement. All questions were answered. Thank you for involving us in the care of your patient. Please call with any questions. Subjective Principal diagnosis: Chest pain Interval history: Mr. Lujan denies recurrent chest pain since receiving NTG in EMS vehicle. Reports he is feeling well today. Objective Vital Signs, Last 4 Hours Temp Pulse Resp BP Pulse Ox 04/24/18 12:04 97.5 F L 62 17 100/60 98 General: Conversant, No Apparent Distress HEENT: Atraumatic, Normocephaly, Mucus Membranes Moist Neck: No JVD, Normal carotid pulses Cardiac: Reg Rate and Rhythm, Normal S1 and S2, No Murmur Lungs: Normal Breath Sounds, No Wheeze, Rales, Rhonchi Neuro: Alert and responsive, No focal deficits noted Abdomen: Soft, Non-Tender Skin: No rashes noted on visualized skin Musculoskeletal: No Chest Wall Tenderness Extremities: No Clubbing, No Cyanosis, No Edema, Normal Pulses Results 04/24/18 06:37 04/24/18 06:37 Lab Results 04/23/18 04/23/18 04/24/18 16:37 22:23 06:37 WBC 11.9 H Hgb 14.7 D Hct 45.2 Plt Count 305 Sodium Potassium Chloride Carbon Dioxide BUN Creatinine Glucose Calcium Troponin I < 0.03 < 0.03 04/24/18 06:37 WBC Hgb Hct Plt Count Sodium 139 Potassium 3.8 Chloride 108 H Carbon Dioxide 25 BUN 28 H Creatinine 1.49 H Glucose 106 H Calcium 9.0 Troponin I - Imaging and Cardiology Stress Test: pending - EKG Interpretation EKG results cardiology: personally reviewed Consult Discharge Plan - Plan Referrals: Mauro Serrano [Primary Care Provider] -
[2018-04-24] MEDS: Pregabalin 50 MG CAPSULE PO SCH (21:07)
[2018-04-25 06:37] LABS: Basophils # 0.1 K/mcL (0.0-0.2); Basophils % 0.8 %; Eosinophils # 0.5 K/mcL (0.0-0.6); Eosinophils % 4.6 %; Hematocrit 46.1 % (37.5-50.1); Immature Granulocytes % 0.9 % (0-4); Lymphocytes % 19.3 %; Mean Corpuscular HGB Conc 32.5 g/dL (31.6-35.5); Mean Corpuscular Hemoglobin 28.4 pg (28.0-33.3); Mean Corpuscular Volume 87.3 fL (83.0-100.0); Mean Platelet Volume 9.3 fL (9.4-12.4); Monocytes # 0.9 K/mcL (0.0-1.3); Monocytes % 8.7 %; Neutrophils # 6.9 K/mcL (1.6-8.9); Platelet Count 316 K/mcL (140-400); Red Blood Count 5.28 M/mcL (4.19-5.50); Segmented Neutrophils % 65.7 %
[2018-04-25 06:47] LABS: BUN/Creatinine Ratio 23 (6-26); Blood Urea Nitrogen 32 mg/dL (6-20); Calcium 9.3 mg/dL (8.6-10.3); Carbon Dioxide 22 mEq/L (23-29); Chloride 109 mEq/L (98-107); Glucose 108 mg/dL (70-105); Osmolality,Calculated 295 (280-300); Potassium 4.1 mEq/L (3.5-5.1); Sodium 139 mEq/L (136-145); eGFR For African Americans > 60 (> 60); eGFR For Non-African Americans 52 (> 60)
[2018-04-25] MEDS: Insulin LISPRO 300 UNITS/3 ML VIAL SQ SCH ×2 (08:24→12:26)
[2018-04-25] MEDS: amLODIPine 5 MG TABLET PO SCH (10:17)
[2018-04-25] MEDS: Aspirin Enteric Coated 81 MG Tablet PO SCH (10:17)
[2018-04-25] MEDS: Lisinopril 20 MG TABLET PO SCH (10:17)
[2018-04-25] MEDS: Isosorbide MONOnitrate (24 HR) 30 MG TAB.ER.24H PO SCH (10:18)
--- NOTE | 2018-04-25 11:05 | Cardiology Progress Note ---
Date of Encounter: 04/25/18 Time of Encounter: 10:30 Assessment and Plan (1) Chest pain Current Visit: No Status: Acute Per cardiology: -EKG unchanged from previous. EKG shows NSR with ST changes in te inferiolateral leads and ST elevation in lead II. Compared to EKG from 01/12/18 EKG is improved. -Troponin negative x3. -Chest pain is atypical. Appears to have GI component, pain starts when he lays flat and associated with nausea. PPI added this admission. -Denies chest pain since admission. -Imdur has been increased this admission. -Stress test with inferior infarct with possible mild ischemia. Has known severe small vessel, tortuous RCA disease. -Cardiology will sign off and will follow in outpatient setting. Follow up set. Qualifiers: Chest pain type: unspecified Qualified Code(s): R07.9 - Chest pain, unspecified (2) CAD (coronary artery disease) Current Visit: No Status: Chronic Per cardiology: -H/o 2V CABG s/p recent NSTEMI. LHC 01/15/18 revealed triple vessel CAD, s/p CABG 2/2 patent bypass grafts (DOUGLAS-LAD, SVG-OM). Severe diffuse disease in the RCA and is a tortuous vessel, EF 65%. He received successful PTCA/MARTA in LMCA and prox Ramus. -TTE- LVEF 60%. Mild left ventricular diastolic dysfunction. Definity echo contrast was used. Normal right ventricular structure and function. No significant valvular dysfunction. Lack of TR gradient to estimate RVSP. -Continue asa, plavix, statin, and bb, and imdur. Qualifiers: Coronary Disease-Associated Artery/Lesion type: unspecified vessel or lesion type [place] vs. transplanted heart: [place] heart Associated angina: with stable angina Qualified Code(s): I25.118 - Atherosclerotic heart disease of [place] coronary artery with other forms of angina pectoris (3) Hypertension Current Visit: No Status: Chronic Per cardiology: -Uncontrolled hypertension on admission. - Restart home medications and b/p normalized. -Discussed compliance with medications and he states he is taking his prescribed meds. (ER note states he initially stated he was not taking some meds. ) -BP now 110 systolic. -Will continue to monitor in outpatient setting. Qualifiers: Hypertension type: essential hypertension Qualified Code(s): I10 - Essential (primary) hypertension Discussion w patient/family: The assessment and plan as outlined above was discussed with the patient who expressed understanding and agreement. All questions were answered. Thank you for involving us in the care of your patient. Please call with any questions. Discussed and reviewed with . Subjective Principal diagnosis: Chest pain Interval history: Patient denies chest pain since admission. Patient states he is ready to go home. Objective Vital Signs, Last 4 Hours Temp Pulse Resp BP Pulse Ox 04/25/18 07:46 98.0 F 63 16 111/75 96 General: Conversant, No Apparent Distress HEENT: Atraumatic, Normocephaly, Mucus Membranes Moist Neck: No JVD, Normal carotid pulses Cardiac: Reg Rate and Rhythm, Normal S1 and S2, No Murmur Lungs: Normal Breath Sounds, No Wheeze, Rales, Rhonchi Neuro: Alert and responsive, No focal deficits noted Abdomen: Soft, Non-Tender Skin: No rashes noted on visualized skin Musculoskeletal: No Chest Wall Tenderness Extremities: No Clubbing, No Cyanosis, No Edema, Normal Pulses Results 04/25/18 05:57 04/25/18 05:57 Lab Results Active Medications Acetaminophen (Tylenol) 650 mg PO Q6HR PRN PRN Reason: Mild Pain/Fever Stop: 10/23/18 13:00 Hydrocodone Bitart/Acetaminophen (Jay 5-325 Mg) 1 tab PO Q6HR PRN PRN Reason: Moderate Pain Stop: 10/23/18 13:00 Amlodipine Besylate (Norvasc) 10 mg PO DAILY [place] Stop: 10/23/18 13:01 Last Admin: 04/25/18 10:17 Dose: 10 mg Aspirin (Aspirin Ec) 81 mg PO DAILY [place] Stop: 10/23/18 13:01 Last Admin: 04/25/18 10:17 Dose: 81 mg Atorvastatin Calcium (Lipitor) 80 mg PO HS [place] Stop: 10/23/18 21:01 Last Admin: 04/24/18 21:06 Dose: 80 mg Clopidogrel Bisulfate (Plavix) 75 mg PO DAILY [place] Stop: 10/23/18 13:01 Last Admin: 04/25/18 10:18 Dose: 75 mg Dextrose/Water (Dextrose 50% (Syg)) 25 ml IVP AD PRN PRN Reason: Hypoglycemia Stop: 10/23/18 14:25 Glucagon (Glucagen) 1 mg IM ONCE PRN PRN Reason: Hypoglycemia Stop: 10/23/18 14:25 Glucose (Gluctose) 15 gm PO ONCE PRN PRN Reason: Hypoglycemia Stop: 10/23/18 14:25 Glucose (Gluctose) 30 gm PO ONCE PRN PRN Reason: Hypoglycemia Stop: 10/23/18 14:25 Dextrose (Dextrose 5%) 1,000 mls @ 100 mls/hr IVC .Q10H PRN PRN Reason: HYPOGLYCEMIA Stop: 10/23/18 14:25 Insulin Human Lispro (Humalog) 0 units SQ TIDAC [facility] PRN Reason: Protocol Stop: 10/23/18 16:31 Last Admin: 04/25/18 08:24 Dose: Not Given Isosorbide Mononitrate (Imdur) 60 mg PO DAILY [facility] Stop: 10/23/18 13:01 Last Admin: 04/25/18 10:18 Dose: 60 mg Lisinopril (Zestril) 20 mg PO DAILY [facility] PRN Reason: Protocol Stop: 10/23/18 13:01 Last Admin: 04/25/18 10:17 Dose: 20 mg Metoprolol Tartrate (Lopressor) 50 mg PO BID [facility] Stop: 10/23/18 13:01 Last Admin: 04/25/18 10:17 Dose: 50 mg Naloxone HCl (Narcan) 0.4 mg IVP Q2MIN PRN PRN Reason: SEE COMMENTS Stop: 10/23/18 13:00 Nitroglycerin (Nitroglycerin) 0.4 mg SL Q5MIN PRN PRN Reason: Chest Pain Stop: 10/23/18 12:51 Omeprazole (Prilosec) 40 mg PO DAILY@0630 [facility] PRN Reason: Protocol Stop: 10/24/18 06:31 Last Admin: 04/25/18 05:58 Dose: 40 mg Ondansetron HCl (Zofran) 4 mg IVP Q8HR PRN PRN Reason: Nausea And Vomiting Stop: 10/23/18 13:00 Oxycodone HCl (Roxicodone) 10 mg PO Q6HR PRN PRN Reason: Severe Pain Stop: 10/23/18 13:00 Pregabalin (Lyrica) 200 mg PO HS [facility] Stop: 10/23/18 23:16 Last Admin: 04/24/18 21:07 Dose: 200 mg Promethazine HCl (Phenergan) 12.5 mg IVP Q6HR PRN PRN Reason: Nausea And Vomiting Stop: 10/23/18 13:00 Spironolactone (Aldactone) 50 mg PO DAILY [place] Stop: 10/23/18 13:01 Last Admin: 04/25/18 10:17 Dose: 50 mg Laboratory Tests 04/23/18 04/23/18 04/23/18 10:38 16:37 22:23 Hgb Creatinine Troponin I < 0.03 < 0.03 < 0.03 04/25/18 04/25/18 05:57 05:57 Hgb 15.0 Creatinine 1.40 H Troponin I - Imaging and Cardiology Chest Xray: report reviewed Stress Test: report reviewed Echo: report reviewed Cardiac cath: report reviewed - EKG Interpretation EKG results cardiology: other (Telemetry reviewed with average HR previous 12 hours noted to be 67, SR. PVCs and PACs noted.) Consult Discharge Plan - Plan Referrals: Mauro Serrano [Primary Care Provider] - 05/01/18 9:15 am
--- NOTE | 2018-04-25 12:15 | Discharge Summary ---
- NOTES TO OUTPATIENT PROVIDER Notes to Outpatient Provider: Admitted for chest pain rule out, no ECG changes noted, troponin negative. 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 Has known history of small vessel disease. Instructed to follow-up with PCP within one week. Instructed to follow-up with cardiology in 2-3 weeks. Thought to be GI component, started on PPI. Orders not resulted at time of discharge: Pending orders 04/23/18 17:31 NM carolee perf SPECT multi [NM] Routine 04/26/18 04:00 Basic Metabolic Panel AM 0400 Complete Blood Count [HEME] AM 0400 04/27/18 04:00 Basic Metabolic Panel AM 0400 Complete Blood Count [HEME] AM 0400 Date of Encounter: 04/25/18 Time of Encounter: 12:13 - Discharge Diagnosis (1) Chest pain Priority: Primary Status: Acute Assessment and Plan: Patient presented with atypical chest pain, aggravated while lying flat. Appears to have GI component that is also associated with nausea, history of GERD. EKG reviewed with no changes compared to prior EKGs per my assessment troponins negative 3, 2 day stress completed with findings of old inferior infarct with possible mild ischemia, has known severe small vessel disease tortuous RCA disease. history of severe CAD, history of two-vessel CABG, [facility] 01/15/18 which shows 2/2 patent bypass grafts, lesions stented in both the LMCA and proximal ramus Imdur increased, PPI added throughout the stay, no return of chest pain since increase in Imdur and addition of PPI. Cardiology signed off. Patient has had an uneventful hospital course, remained medically stable and ready for discharge today. Instructed to follow-up with PCP within 1 week of discharge and follow-up with cardiology in 2-3 weeks of discharge. Additionally, his instructed to return to the ED should chest pain returned. He will be sent home with the increased dose of Imdur and PPI. Qualifiers: Chest pain type: unspecified Qualified Code(s): R07.9 - Chest pain, unspecified (2) CAD (coronary artery disease) Priority: Secondary Status: Chronic Assessment and Plan: History of CAD, resume cardiac medications Qualifiers: Coronary Disease-Associated Artery/Lesion type: unspecified vessel or lesion type [place] vs. transplanted heart: [place] heart Associated angina: with stable angina Qualified Code(s): I25.118 - Atherosclerotic heart disease of [place] coronary artery with other forms of angina pectoris (3) Diabetes mellitus type 2 in obese Priority: Secondary Status: Chronic Assessment and Plan: To be managed outpatient (4) Hypertension Priority: Secondary Status: Chronic Assessment and Plan: History of hypertension, stable throughout stay, continue home anti-HTN medications at discharge Qualifiers: Hypertension type: essential hypertension Qualified Code(s): I10 - Essential (primary) hypertension (5) CKD (chronic kidney disease) Priority: Secondary Status: Chronic Assessment and Plan: History of CKD, renal function stable upon discharge and at patient's baseline Qualifiers: Chronic kidney disease stage: stage 3 (moderate) Qualified Code(s): N18.3 - Chronic kidney disease, stage 3 (moderate) (6) Morbid obesity Priority: Secondary Status: Chronic Assessment and Plan: Discussed lifestyle modifications Hospital course: Mr. Lujan is a 57 year old male see assessment and plan for hospital course Discharge discussed with: patient, nurse, diet consultant - Time Spent with Patient Total time spent providing and/or coordinating discharge services: Less than 30 minutes - Discharge Medications Prescriptions: Isosorbide MONOnitrate (24 HR) [Imdur] 60 mg PO DAILY #30 tab.er.24h Omeprazole [PriLOSEC] 40 mg PO DAILY@0630 30 Days #30 capsule.dr Home Medications: Amlodipine Besylate 10 mg PO DAILY 12/29/17 [History] Aspirin [Lo-Dose Aspirin EC] 81 mg PO DAILY 12/29/17 [History] Lisinopril [Zestril] 20 mg PO DAILY 12/29/17 [History] Spironolactone [Aldactone] 50 mg PO DAILY 12/29/17 [History] Oxycodone HCl/Acetaminophen [Endocet 10-325 mg Tablet] 1 tab PO QID PRN [History] Pregabalin [Lyrica] 200 mg PO HS 12/30/17 [History] Fluticasone Propionate Nasal [Flonase] 50 mcg NS BID 01/13/18 [History] Atorvastatin [Lipitor] 80 mg PO HS #60 tablet 01/16/18 [Rx] Clopidogrel [Plavix] 75 mg PO DAILY #30 tablet 01/16/18 [Rx] Metoprolol [Lopressor] 50 mg PO BID #60 tablet 01/16/18 [Rx] Nitroglycerin [Nitrostat] 0.4 mg SL Q5MIN PRN 04/23/18 [History] Isosorbide MONOnitrate (24 HR) [Imdur] 60 mg PO DAILY #30 tab.er.24h 04/25/18 [ Rx] Omeprazole [PriLOSEC] 40 mg PO DAILY@0630 30 Days #30 capsule. 04/25/18 [Rx] Allergies/Adverse Reactions: 3 Allergy/AdvReac Type Severity Reaction Status Date / Time tramadol [From Ultram] Allergy See Verified 04/23/18 11:06 Comments Date of admission: 04/23/18 12:45 Primary care physician: Mauro Serrano Discharging clinician: Patrice Arriaga Anticipated date of discharge: 04/25/18 - Constitutional Vitals: Temp Pulse Resp BP Pulse Ox 98.0 F 63 16 111/75 96 04/25/18 07:46 04/25/18 07:46 04/25/18 07:46 04/25/18 07:46 04/25/18 07:46 General appearance: Present: A&O X 3, morbidly obese, no acute distress, answers questions appropriately - Head Head exam: Present: atraumatic, normocephalic - Eye Eye exam: Present: PERRL, conjuntiva pink, sclera anicteric Pupils: Present: PERRL - Neck Neck exam general surgery: Present: supple, trachea midline. Absent: lymphadenopathy - Respiratory Respiratory exam: Present: CTAB. Absent: accessory muscle use, rales, rhonchi, wheezes - Cardiovascular Cardiovascular exam: Present: RRR, +S1, +S2. Absent: diastolic murmur, gallop, rubs, systolic murmur - GI/Abdominal GI/Abdominal exam: Present: normal bowel sounds, soft, no peritoneal signs. Absent: distended, tenderness - Extremities Exam Extremities exam: Present: warm, radial pulses palpable and symmetrical. Absent : calf tenderness, cyanotic, pedal edema - Neurological Exam Neurological exam: Present: CN II-XII intact, oriented X3, no focal deficits. Absent: pronater drift, facial droop, speech deficit - Skin Skin exam: Present: dry, intact - Patient Status Disposition: Home, Self-Care Condition: Fair Overall status at discharge: patient is back to baseline - Discharge Instructions Follow Up With: Mauro Serrano [Primary Care Provider] - 05/01/18 9:15 am - Diet and Activity Activity: increase activity as tolerated, resume usual activities as tolerated Diet: advance to your usual diet
[2018-04-25 12:25] VITALS: BP 107/70
== END 2018-04-25 14:52 | disposition home or self-care (01) ==
LOC: EMEROO 10:25 → 3BNU 10:25
PROVIDERS: ADMIT Family Medicine; ATTEND Family Medicine

== ENCOUNTER 2019-07-24 20:03 | Inpatient (IN) ==
[2019-07-24] MEDS ORDERED: 0.9 % Sodium Chloride 1,000 ML IVC ONE (20:15)
--- NOTE | 2019-07-24 20:21 | Emergency Department Note ---
Disposition Clinical Impression: Vertigo, Nausea Hypertension Qualifiers: Hypertension type: unspecified Qualified Code(s): I10 - Essential (primary) hypertension Disposition: Still a Patient Condition: Good Instructions: Hypertension (ED), Dizziness (ED), Benign Paroxysmal Positional Vertigo, Pediatric Physician (GEN) Reasons to Return/Additional Instructions: Please take meclizine as needed for nausea and dizziness Please return to the emergency department if you develop new weakness, slurred speech, confusion, or dizziness that does not resolve Please follow-up with your primary care physician in 3-5 days Prescriptions: Meclizine [Antivert] 25 mg PO TID PRN #30 tablet PRN Reason: Dizziness Referrals: Mauro Serrano [Primary Care Provider] - Forms: ED Satisfaction Letter Time of Disposition: 00:29 Dizziness HPI - General Chief Complaint: ED Dizziness Stated Complaint: dizziness Time Seen by Provider: 07/24/19 20:14 Source: patient, EMS Mode of arrival: EMS Limitations: no limitations Nursing Notes Reviewed: Yes Vital Signs Reviewed: Yes - History of Present Illness HPI Narrative: Mr. Lujan is a 58 yo male with PMH of HTN, CVA, and DM, presented to the emergency department via EMS for concerns of dizziness, nausea, vomiting. He reports the dizziness has been constant since 6 AM this morning. Nothing seems to improve the dizziness. He has vomited 4 times throughout the day. He reports that he feels weak. He states the last time he had symptoms like this, that is when he had his stroke. He reports his right eye deviation and slight facial drop is chronic. He denies fevers, chills, vision changes, chest pain, dyspnea, abdominal pain, or edema. - Related Data Home Medications Medication Instructions Recorded Confirmed Amlodipine Besylate 10 mg PO DAILY 12/29/17 04/23/18 Aspirin [Lo-Dose Aspirin EC] 81 mg PO DAILY 12/29/17 04/23/18 Lisinopril [Zestril] 20 mg PO DAILY 12/29/17 04/23/18 Spironolactone [Aldactone] 50 mg PO DAILY 12/29/17 04/23/18 Oxycodone HCl/Acetaminophen 1 tab PO QID PRN 12/30/17 04/23/18 [Endocet 10-325 mg Tablet] Pregabalin [Lyrica] 200 mg PO HS 12/30/17 04/23/18 Fluticasone Propionate Nasal 50 mcg NS BID 01/13/18 04/23/18 [Flonase] Nitroglycerin [Nitrostat] 0.4 mg SL Q5MIN PRN 04/23/18 04/23/18 Previous Rx's Medication Instructions Recorded Atorvastatin [Lipitor] 80 mg PO HS #60 tablet 01/16/18 Clopidogrel [Plavix] 75 mg PO DAILY #30 tablet 01/16/18 Metoprolol [Lopressor] 50 mg PO BID #60 tablet 01/16/18 Isosorbide MONOnitrate (24 HR) 60 mg PO DAILY #30 tab.er.24h 04/25/18 [Imdur] Nitroglycerin 0.4 mg SL PRN PRN 30 Days #30 04/25/18 tab.subl Omeprazole [PriLOSEC] 40 mg PO DAILY@0630 30 Days #30 04/25/18 capsule. Meclizine [Antivert] 25 mg PO TID PRN #30 tablet 07/24/19 Allergies Allergy/AdvReac Type Severity Reaction Status Date / Time tramadol [From Ultram] Allergy See Verified 04/23/18 11:06 Comments Review of Systems: Admits to dizziness, weakness, nausea, and vomiting. Denies fevers, chills, vision changes, chest pain, dyspnea, abdominal pain, or edema. All systems ED: reviewed and negative except as stated. Review of Systems: As Per HPI Past Medical History - Past Medical History Medical history: Reports: coronary artery disease, CVA, diabetes, hyperlipidemia, hypertension, myocardial infarction, renal disease, other Surgical history: Reports: coronary bypass (CABG) Psychiatric history: Reports: no psych history - Social History Smoking Status: Never smoker Smokeless Tobacco Status: No Alcohol use: Reports: occasionally Drug use: Reports: none Physical Exam GEN: mild distress, A&O2 (person and place) HEAD: Atraumatic, normocephalic EYES: Pupils symmetric, right eye deviated to the right, right sided horizontal nystagmus, sclera white, conjunctiva pink HEART: RRR, normal S1 and S2, no murmurs LUNGS: Clear to auscultation bilaterally, no wheezes, rhonchi, or crackles ABD: Soft, nontender, nondistended, bowel sounds present EXT: No edema noted, pulses 2/4 NEURO: slight droop of right side of face, lateral right eye deviation, cooperative with exam, strength equal and symmetric in UE and LE, sensation intact throughout, negative [id number] testing, no ataxia - General Limitations: no limitations General appearance: alert, in no apparent distress Course Course Narrative: The patient was observed in the ER and is feeling better but still is having vertiginous type symptoms patient feels as though he probably needs to stay overnight in the hospital the patient will receive an dose of labetalol in the emergency department and the blood pressures will be followed if patient's blood pressure was below 180 the patient can go upstairs if not patient will require nicardipine drip and admission. Vital Signs Temperature 97.8 F 07/24/19 20:07 Pulse Rate 103 07/24/19 20:07 Respiratory Rate 18 07/24/19 20:07 Blood Pressure 206/124 07/24/19 20:07 O2 Sat by Pulse Oximetry 99 07/24/19 20:07 Temperature 97.8 F 07/24/19 20:07 Pulse Rate 98 07/24/19 21:21 Respiratory Rate 18 07/24/19 20:07 Blood Pressure 207/101 07/24/19 21:21 O2 Sat by Pulse Oximetry 98 07/24/19 21:21 Oxygen Delivery Oxygen Delivery Nasal Cannula Dizziness - MDM Narrative Medical decision making narrative: Patient evaluated upon arrival. He has dizziness, nausea, and weakness. He reports his right eye lateral deviation and mild facial droop are chronic from prior CVA, otherwise exam is non-focal. He is hypertensive, but was not been able to keep his evening medications down. Will give one dose of lopressor. He received zofran from EMS. His symptoms are similar to his prior CVA, however he is outside of the window for TPA at 14 hours since last known well. CT shows no acute abnormality, shows diffuse atrophy, chronic microvascular changes and old right cerebellar hemispheric infarct. EKG without signs of ischemia. 0 CBC with hemoconcentration, renal function is at baseline. Troponin negative. He is now alert and oriented to person, place, and year. His dizziness is resolved and he is no longer having nausea. He states that he feels back to his baseline. He states his BP is always around 200/100 and he has been working with his primary care physician in [place] to get it down. With his right lateral nystagmus and resolved dizziness, this is likely BPPV or possible now resolved TIA. Discussed the risks and benefits of admission and completing an MRI or going home. He is comfortable going home and following up with his primary care physician. He is hemodynamically stable and can be discharged home. Return to care precautions given. - Lab Data Lab results reviewed: Yes I reviewed the patient's lab results. Result diagrams: 07/24/19 20:59 07/24/19 20:59 Lab Results 07/24/19 07/24/19 07/24/19 Range/Units 20:59 20:59 20:59 WBC 19.9 H (4.3-11.1) K/mcL RBC 6.18 H (4.19-5.50) M/mcL Hgb 17.9 H (12.9-16.9) g/dL Hct 53.0 H (37.5-50.1) % MCV 85.8 (83.0-100.0) fL MCH 29.0 (28.0-33.3) pg MCHC 33.8 (31.6-35.5) g/dL RDW 12.9 (11.5-14.5) % Plt Count 319 (140-400) K/mcL MPV 8.9 L (9.4-12.4) fL Immature Gran % 1.9 (0-4) % Seg Neutrophils % 88.0 % Lymphocytes % 5.4 % Monocytes % 4.1 % Eosinophils % 0.1 % Basophils % 0.5 % Neutrophils # 17.5 H (1.6-8.9) K/mcL Lymphocytes # 1.1 (0.6-4.6) K/mcL Monocytes # 0.8 (0.0-1.3) K/mcL Eosinophils # 0.0 (0.0-0.6) K/mcL Basophils # 0.1 (0.0-0.2) K/mcL PT 11.2 (9.4-12.1) Seconds INR 1.0 Sodium 136 (136-145) mEq/L Potassium 3.8 (3.5-5.1) mEq/L Chloride 100 (98-107) mEq/L Carbon Dioxide 20 L (23-29) mEq/L BUN 20 (6-20) mg/dL Creatinine 1.35 H (0.70-1.30) mg/dL Est GFR ( Amer) > 60 (> 60) Est GFR (Non-Af Amer) 54 L (> 60) BUN/Creatinine Ratio 15 (6-26) Glucose 235 H (70-105) mg/dL Calculated Osmolality 292 (280-300) Calcium 9.5 (8.6-10.3) mg/dL Total Bilirubin 0.7 (0.3-1.0) mg/dL AST 16 (13-39) Units/L ALT 15 (7-52) Units/L Alkaline Phosphatase 84 (34-104) Units/L Troponin I < 0.03 (< 0.04) ng/mL Serum Total Protein 7.6 (6.4-8.9) g/dL Albumin 4.4 (3.5-5.7) g/dL Globulin 3.2 (2.4-3.5) g/dL Albumin/Globulin Ratio 1.4 (1.1-2.2) - Radiology Data Radiology results reviewed: Yes I reviewed the patient's radiology results. - EKG Data EKG attestation: Yes I reviewed and interpreted this EKG. EKG shows normal: sinus rhythm, axis, intervals, QRS complexes, ST-T waves Rate: tachycardia When compared to previous EKG there are: no significant changes
[2019-07-24] MEDS ORDERED: *HR* Metoprolol 5 MG/5 ML VIAL IVP ONE (20:56)
--- NOTE | 2019-07-24 21:02 | Emergency Department Note ---
Disposition Clinical Impression: Vertigo, Nausea Hypertension Qualifiers: Hypertension type: unspecified Qualified Code(s): I10 - Essential (primary) hypertension Disposition: Still a Patient Condition: Good Instructions: Hypertension (ED), Dizziness (ED), Benign Paroxysmal Positional Vertigo, Stagecraft Professor (GEN) Reasons to Return/Additional Instructions: Please take meclizine as needed for nausea and dizziness Please return to the emergency department if you develop new weakness, slurred speech, confusion, or dizziness that does not resolve Please follow-up with your primary care physician in 3-5 days Prescriptions: Meclizine [Antivert] 25 mg PO TID PRN #30 tablet PRN Reason: Dizziness Referrals: Mauro Serrano [Primary Care Provider] - Forms: ED Satisfaction Letter Time of Disposition: 00:28 General Adult HPI - General Chief complaint: ED Dizziness Stated complaint: dizziness Time Seen by Provider: 07/24/19 20:14 Source: patient, EMS Mode of arrival: EMS Limitations: no limitations - History of Present Illness Pain Scale: 4 - Related Data Home Medications Medication Instructions Recorded Confirmed Amlodipine Besylate 10 mg PO DAILY 12/29/17 04/23/18 Aspirin [Lo-Dose Aspirin EC] 81 mg PO DAILY 12/29/17 04/23/18 Lisinopril [Zestril] 20 mg PO DAILY 12/29/17 04/23/18 Spironolactone [Aldactone] 50 mg PO DAILY 12/29/17 04/23/18 Oxycodone HCl/Acetaminophen 1 tab PO QID PRN 12/30/17 04/23/18 [Endocet 10-325 mg Tablet] Pregabalin [Lyrica] 200 mg PO HS 12/30/17 04/23/18 Fluticasone Propionate Nasal 50 mcg NS BID 01/13/18 04/23/18 [Flonase] Nitroglycerin [Nitrostat] 0.4 mg SL Q5MIN PRN 04/23/18 04/23/18 Previous Rx's Medication Instructions Recorded Atorvastatin [Lipitor] 80 mg PO HS #60 tablet 01/16/18 Clopidogrel [Plavix] 75 mg PO DAILY #30 tablet 01/16/18 Metoprolol [Lopressor] 50 mg PO BID #60 tablet 01/16/18 Isosorbide MONOnitrate (24 HR) 60 mg PO DAILY #30 tab.er.24h 04/25/18 [Imdur] Nitroglycerin 0.4 mg SL PRN PRN 30 Days #30 04/25/18 tab.subl Omeprazole [PriLOSEC] 40 mg PO DAILY@0630 30 Days #30 04/25/18 capsule. Meclizine [Antivert] 25 mg PO TID PRN #30 tablet 07/24/19 Allergies Allergy/AdvReac Type Severity Reaction Status Date / Time tramadol [From Ultram] Allergy See Verified 04/23/18 11:06 Comments Past Medical History - Past Medical History Medical history: Reports: coronary artery disease, CVA, diabetes, hyperlipidemia, hypertension, myocardial infarction, renal disease, other Surgical history: Reports: coronary bypass (CABG) Psychiatric history: Reports: no psych history - Social History Smoking Status: Never smoker Smokeless Tobacco Status: No Alcohol use: Reports: occasionally Drug use: Reports: none Physical Exam - General Limitations: no limitations General appearance: alert, in no apparent distress Course Vital Signs Temperature 97.8 F 07/24/19 20:07 Pulse Rate 103 07/24/19 20:07 Respiratory Rate 18 07/24/19 20:07 Blood Pressure 206/124 07/24/19 20:07 O2 Sat by Pulse Oximetry 99 07/24/19 20:07 Temperature 97.8 F 07/24/19 20:07 Pulse Rate 98 07/24/19 21:21 Respiratory Rate 18 07/24/19 20:07 Blood Pressure 207/101 07/24/19 21:21 O2 Sat by Pulse Oximetry 98 07/24/19 21:21 Oxygen Delivery Oxygen Delivery Nasal Cannula Medical Decision Making - Lab Data Result diagrams: 07/24/19 20:59 07/24/19 20:59 Lab Results 07/24/19 07/24/19 07/24/19 Range/Units 20:59 20:59 20:59 WBC 19.9 H (4.3-11.1) K/mcL RBC 6.18 H (4.19-5.50) M/mcL Hgb 17.9 H (12.9-16.9) g/dL Hct 53.0 H (37.5-50.1) % MCV 85.8 (83.0-100.0) fL MCH 29.0 (28.0-33.3) pg MCHC 33.8 (31.6-35.5) g/dL RDW 12.9 (11.5-14.5) % Plt Count 319 (140-400) K/mcL MPV 8.9 L (9.4-12.4) fL Immature Gran % 1.9 (0-4) % Seg Neutrophils % 88.0 % Lymphocytes % 5.4 % Monocytes % 4.1 % Eosinophils % 0.1 % Basophils % 0.5 % Neutrophils # 17.5 H (1.6-8.9) K/mcL Lymphocytes # 1.1 (0.6-4.6) K/mcL Monocytes # 0.8 (0.0-1.3) K/mcL Eosinophils # 0.0 (0.0-0.6) K/mcL Basophils # 0.1 (0.0-0.2) K/mcL PT 11.2 (9.4-12.1) Seconds INR 1.0 Sodium 136 (136-145) mEq/L Potassium 3.8 (3.5-5.1) mEq/L Chloride 100 (98-107) mEq/L Carbon Dioxide 20 L (23-29) mEq/L BUN 20 (6-20) mg/dL Creatinine 1.35 H (0.70-1.30) mg/dL Est GFR ( Amer) > 60 (> 60) Est GFR (Non-Af Amer) 54 L (> 60) BUN/Creatinine Ratio 15 (6-26) Glucose 235 H (70-105) mg/dL Calculated Osmolality 292 (280-300) Calcium 9.5 (8.6-10.3) mg/dL Total Bilirubin 0.7 (0.3-1.0) mg/dL AST 16 (13-39) Units/L ALT 15 (7-52) Units/L Alkaline Phosphatase 84 (34-104) Units/L Troponin I < 0.03 (< 0.04) ng/mL Serum Total Protein 7.6 (6.4-8.9) g/dL Albumin 4.4 (3.5-5.7) g/dL Globulin 3.2 (2.4-3.5) g/dL Albumin/Globulin Ratio 1.4 (1.1-2.2) Attestation Statement - Attestation Attestation: I examined this patient and my medical decision-making was reviewed with the Resident Physician. I agree with the documented findings, disposition and treatment plan as described except to the extent set forth below. Patient 58 year old Juani presents the emergency department with chief complaint of dizziness. Patient states that days a prior strokes before in the past and today noticed that he was starting to feel strange in his head felt a little confused and states this feels like whenever he had a stroke before in the past. The patient states is not improved by anything nor is it worsened by anything. The patient denies being on any blood thinners. Physical exam patient awake alert able to answer questions is hypertensive he has no focal neurological deficits. Medical decision management the patient will be evaluated from a metabolic and infectious and also infarction type evaluation. The patient was feeling better but then still felt as though he was dizzy. The case was discussed with the spitalist for admission with the patient's blood pressure being elevated we are going to give the patient some labetalol in the emergency department and if his blood pressure comes down below 180 the patient will be admitted upstairs if the patient's blood pressure stays elevated that he may require an Accardo pain drip. We have is signing out to the overnight. For results of the labetalol I personally supervised and was present for the cabrera/critical portions of the following procedures completed by the resident:EKG.
[2019-07-24 21:22] LABS: Basophils # 0.1 K/mcL (0.0-0.2); Basophils % 0.5 %; Eosinophils % 0.1 %; Hemoglobin 17.9 g/dL (12.9-16.9); Immature Granulocytes % 1.9 % (0-4); Lymphocytes # 1.1 K/mcL (0.6-4.6); Lymphocytes % 5.4 %; Mean Corpuscular HGB Conc 33.8 g/dL (31.6-35.5); Mean Corpuscular Volume 85.8 fL (83.0-100.0); Mean Platelet Volume 8.9 fL (9.4-12.4); Monocytes # 0.8 K/mcL (0.0-1.3); Monocytes % 4.1 %; Neutrophils # 17.5 K/mcL (1.6-8.9); Platelet Count 319 K/mcL (140-400); Red Blood Count 6.18 M/mcL (4.19-5.50); Red Cell Distribution Width 12.9 % (11.5-14.5); White Blood Count 19.9 K/mcL (4.3-11.1)
[2019-07-24 21:29] LABS: Prothrombin Time 11.2 Seconds (9.4-12.1)
[2019-07-24 21:40] LABS: Alanine Aminotransferase 15 Units/L (7-52); Albumin 4.4 g/dL (3.5-5.7); Albumin/Globulin Ratio 1.4 (1.1-2.2); Alkaline Phosphatase 84 Units/L (34-104); Aspartate Amino Transferase 16 Units/L (13-39); BUN/Creatinine Ratio 15 (6-26); Bilirubin,Total 0.7 mg/dL (0.3-1.0); Blood Urea Nitrogen 20 mg/dL (6-20); Calcium 9.5 mg/dL (8.6-10.3); Carbon Dioxide 20 mEq/L (23-29); Chloride 100 mEq/L (98-107); Globulin 3.2 g/dL (2.4-3.5); Glucose 235 mg/dL (70-105); Osmolality,Calculated 292 (280-300); Potassium 3.8 mEq/L (3.5-5.1); Sodium 136 mEq/L (136-145); Total Protein 7.6 g/dL (6.4-8.9); Troponin I < 0.03 ng/mL (< 0.04); eGFR For African Americans > 60 (> 60); eGFR For Non-African Americans 54 (> 60)
[2019-07-25] MEDS ORDERED: *HR* Labetalol 20 MG/4 ML SYRINGE IVP ONE (00:18)
[2019-07-25] MEDS ORDERED: Nitroglycerin 0.4 MG TAB.SUBL SL PRN (01:27)
[2019-07-25] MEDS ORDERED: *HR* OxyCODONE/APAP 10/325 TABLET PO PRN (01:27)
[2019-07-25] MEDS ORDERED: NIFEdipine 10 MG CAPSULE PO ONE (01:43)
--- NOTE | 2019-07-25 02:15 | Internal Med History&Physical ---
Date of Encounter: 07/25/19 Time of Encounter: 02:13 Internal Medicine - H&P: HPI Chief complaint: dizziness Admitted From: Home Plans for Post Hospital Care: Home History of present illness: Freddy Lujan is a 58 year old man with uncontrolled hypertension, pre-diabetes, cerebrovascular disease and coronary artery disease s/p 2V CABG and 2 stents placed with known 3V disease who is brought to the ER with complaints of dizziness, nausea and vomiting that started earlier in the morning accompanied by generalized malaise. He felt it was similar to when he had a stroke. He denied associated chest pain, fever, chills, dyspnea and diplopia. On arrival to the ER his BP was 207/101. Head CT showed diffuse atrophic changes with findings suggesting chronic microvascular ischemia and an old right cerebellar hemispheric infarct. Lab work was notable for a leukocyte count of 19.9 and hemoglobin 17.9 with a hematocrit of 53%. He was given a liter of normal saline, 5 mg metoprolol and 10 mg labetalol intravenously with an adequate response and his blood pressure however due to continued dizziness he is admitt ed for observation. At this time his chief complaint is ongoing dizziness and a mild headache. Vitals: Reviewed General: Morbidly obese man lying in bed, somnolent. Skin: Warm and dry. HEENT: Moist mucous membranes. No conjunctivae pallor. Neck: No lymphadenopathy. No JVD. No carotid bruits. No palpable thyroid. Chest: Normal thoracic expansion. Normal breath sounds. Clear to auscultation. Heart: Normal S1 & S2; rhythmic. No rubs or murmurs. Abdomen: Obese, soft and non-tender to palpation. No peritoneal reaction. Extremities: No clubbing, cyanosis or edema. No calf tenderness. Normal distal pulses. Neurological: Awake, alert and oriented to person, place and time. No focal deficits. Psych: Affect appropriate. Assessment/Plan 1. Hypertensive emergency: The patient presented with an elevation in his blood pressure values in conjunction with dizziness and nausea presumed to be symptomatic from the cerebrovascular strain of the accelerated BP. Thus far there is no evidence of end-organ damage however. He has received parenteral agents and now I will resume his home oral therapy while continuing to monitor his neurologic status. He acknowledges his lack of adherence to his medications. He may benefit from the addition of a diuretic to his oral antihypertensive regimen as an outpatient. 2. Dizziness: Suspect secondary to the above and not a manifestation of a new CVA. Will monitor him and if symptoms persist even with regulation of his blood pressure, he may warrant repeat imaging, perhaps an MRI. 3. Coronary artery disease: Will continue his dual antiplatelet therapy and high intensity statin. 4. DVT prophylaxis: SubQ heparin ordered. 5. Leukocytosis: Unclear etiology; possibly reactive or hemoconcentration seeing as it is coupled with a rise in his Hgb/Hct as well. Will monitor. Past Med Surg Social Fam HX - Past Medical History Medical history: coronary artery disease, CVA, diabetes, hyperlipidemia, hypertension, myocardial infarction, renal disease, other Additional medical history: CO, OPEN HEART SURGERY Psychiatric history: no psych history - Past Surgical History Surgical History: coronary bypass (CABG) Additional surgical history: right leg surgery - Social History Smoking Status: Never smoker Smokeless Tobacco Status: No Alcohol use: occasionally Drug use: none - Family History Mother Living Status: Hx Family Cardiac Disorders: No Hx Family Respiratory Disorders: No Hx Family Cancer: Yes (Lung) Hx Family GI Disorders: No Hx Family Endocrine Disorder: Yes (Thyroid disease) Hx Family Neuromuscular Disorders: No Hx Family Neurologic Disorders: No Hx Family HEENT Disorders: No Hx Family Autoimmune Disorders: No Father Living Status: Hx Family Cardiac Disorders: Yes Hx Family Respiratory Disorders: No Hx Family Cancer: No Hx Family GI Disorders: No Hx Family Endocrine Disorder: Yes (DM) Hx Family Neuromuscular Disorders: No Hx Family Neurologic Disorders: No Hx Family HEENT Disorders: No Hx Family Autoimmune Disorders: No Internal Medicine - H&P: Meds Amlodipine Besylate 10 mg PO DAILY 12/29/17 [History] Aspirin [Lo-Dose Aspirin EC] 81 mg PO DAILY 12/29/17 [History] Lisinopril [Zestril] 20 mg PO DAILY 12/29/17 [History] Oxycodone HCl/Acetaminophen [Endocet 10-325 mg Tablet] 1 tab PO Q6H PRN 12/30/17 [History] Atorvastatin [Lipitor] 80 mg PO HS #60 tablet 01/16/18 [Rx] Clopidogrel [Plavix] 75 mg PO DAILY #30 tablet 01/16/18 [Rx] Nitroglycerin [Nitrostat] 0.4 mg SL Q5MIN PRN 04/23/18 [History] Omeprazole [PriLOSEC] 40 mg PO DAILY@0630 30 Days #30 capsule. 04/25/18 [Rx] Meclizine [Antivert] 25 mg PO TID PRN #30 tablet 07/24/19 [Rx] Metoprolol [Lopressor] 100 mg PO BID 07/25/19 [History] Allergy/AdvReac Type Severity Reaction Status Date / Time tramadol [From Ultram] Allergy See Verified 04/23/18 11:06 Comments All Systems PM: A 10-system review of systems was performed and is negative for pertinent findings except as documented above in the HPI. - Constitutional Vitals: Temp Pulse Resp BP Pulse Ox 97.8 F 101 18 185/112 97 07/24/19 20:07 07/25/19 00:49 07/25/19 01:25 07/25/19 01:25 07/25/19 00:49 Exam: . Internal Med - H&P Results - Labs CBC & Chem 7: 07/24/19 20:59 07/24/19 20:59 Labs: Short CBC 07/24/19 Range/Units 20:59 WBC 19.9 H (4.3-11.1) K/mcL Hgb 17.9 H (12.9-16.9) g/dL Hct 53.0 H (37.5-50.1) % Plt Count 319 (140-400) K/mcL Neutrophils # 17.5 H (1.6-8.9) K/mcL BMP 07/24/19 20:59 Sodium 136 Potassium 3.8 Chloride 100 Carbon Dioxide 20 L BUN 20 Creatinine 1.35 H Glucose 235 H Calcium 9.5 Cardiac Enzymes 07/24/19 Range/Units 20:59 Troponin I < 0.03 (< 0.04) ng/mL Liver Function 07/24/19 Range/Units 20:59 Total Bilirubin 0.7 (0.3-1.0) mg/dL AST 16 (13-39) Units/L ALT 15 (7-52) Units/L Alkaline Phosphatase 84 (34-104) Units/L Albumin 4.4 (3.5-5.7) g/dL - Impressions ITS Impressions Chest X-Ray 07/24/19 20:15 IMPRESSION: No acute findings in the chest. D/ / Suri Zavala MD / Suri Zavala MD Interpreting Provider: Suri Zavala MD Head CT 07/24/19 20:15 IMPRESSION: No acute intracranial abnormality. Diffuse atrophic changes with findings suggesting chronic microvascular ischemia and an old right cerebellar hemispheric infarct D/ / Ezio Castillo MD / Ezio Castillo MD Interpreting Provider: Ezio Castillo MD - Time Spent With Patient Total time spent is greater than 50% in coordination of care (as documented) at patient's floor/unit and/or counseling patient:
[2019-07-25 04:23] LABS: Basophils # 0.1 K/mcL (0.0-0.2); Basophils % 0.3 %; Hematocrit 52.4 % (37.5-50.1); Hemoglobin 17.3 g/dL (12.9-16.9); Immature Granulocytes % 1.1 % (0-4); Lymphocytes % 5.2 %; Mean Corpuscular Hemoglobin 28.8 pg (28.0-33.3); Mean Corpuscular Volume 87.2 fL (83.0-100.0); Monocytes # 0.5 K/mcL (0.0-1.3); Monocytes % 2.6 %; Neutrophils # 17.4 K/mcL (1.6-8.9); Platelet Count 348 K/mcL (140-400); Red Blood Count 6.01 M/mcL (4.19-5.50); Red Cell Distribution Width 12.8 % (11.5-14.5); Segmented Neutrophils % 90.8 %; White Blood Count 19.1 K/mcL (4.3-11.1)
[2019-07-25] MEDS: *HR* Heparin 5,000 UNIT/ML VIAL SQ SCH ×2 (05:31→17:39)
[2019-07-25] MEDS ORDERED: Ondansetron 4 MG/2 ML VIAL IVP PRN (05:36)
[2019-07-25] MEDS: Aspirin Enteric Coated 81 MG Tablet PO SCH (08:56)
[2019-07-25] MEDS ORDERED: Lisinopril 20 MG TABLET PO SCH (09:00)
[2019-07-25] MEDS ORDERED: amLODIPine 5 MG TABLET PO SCH (09:00)
--- NOTE | 2019-07-25 12:40 | Event Note ---
Date of Encounter: 07/25/19 Time of Encounter: 10:00 H&P reviewed. Patient with history of CAD status post CABG and PCI, cerebellar infarct, hypertension, CKD, was admitted overnight due to dizziness in the setting of accelerated hypertension. Also had unexplained leukocytosis that is persistent. Other than feeling nauseated and dizzy, patient did not have any focal complaints including chest pain, neck stiffness, headache, cough, sputum production, abdominal pain, change in bowel habits, dysuria, or joint pain. On exam, patient is noted to have nystagmus that is worse on lateral gazes. Mild dysmetria also noted. No other focal neurological deficits. Will proceed with MRI to rule out CVA. Allow permissive hypertension until CVA is ruled out.
[2019-07-25 13:31] LABS: BUN/Creatinine Ratio 16 (6-26); Blood Urea Nitrogen 19 mg/dL (6-20); Calcium 9.7 mg/dL (8.6-10.3); Carbon Dioxide 24 mEq/L (23-29); Chloride 101 mEq/L (98-107); Glucose 141 mg/dL (70-105); Osmolality,Calculated 287 (280-300); Potassium 3.9 mEq/L (3.5-5.1); Sodium 136 mEq/L (136-145); eGFR For African Americans > 60 (> 60); eGFR For Non-African Americans > 60 (> 60)
--- NOTE | 2019-07-25 20:07 | Electrocardiograph Report ---
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
--- NOTE | 2019-07-25 23:13 | Event Note ---
Date of Encounter: 07/25/19 Time of Encounter: 20:40 Alerted by patient's nurse Lynn that patient had been admitted for dizziness and was complaining of headache 04/04. MRI done to rule out CVA but results not available yet. Nurse reported patient is very fatigued, SOB, somewhat slurred speech, and delayed. Patient was also complaining of leg numbness/tingling/weakness with tingling and numbness to the hand. Resident Rosita Pittman covering 3A alerted of the situation w/recommendation from me to see patient and start neurologic assessments, hold BP meds to allow for permissive HTN w/parameters, add NIHSS and NIHSS modifieds, and consult Neurology. MRI results showed acute infarct posterior circulation, left AICA and basilar artery branch territories. No evidence of hemorrhagic conversion. Nurse paged Dr. Hutchins who was fashion intern for Neurology. No new orders and Neuro will see in the a.m. Patient currently on 81 mg ASA and 75 mg Plavix daily. Nurse instructed to continue monitoring this patient very closely and alert me immediately of any adverse changes.
[2019-07-26] MEDS: Acetaminophen 325 MG TABLET PO PRN ×2 (00:39→08:59)
[2019-07-26 03:04] LABS: Basophils # 0.1 K/mcL (0.0-0.2); Basophils % 0.5 %; Eosinophils # 0.2 K/mcL (0.0-0.6); Eosinophils % 1.3 %; Hematocrit 52.5 % (37.5-50.1); Immature Granulocytes % 0.8 % (0-4); Lymphocytes # 2.3 K/mcL (0.6-4.6); Lymphocytes % 14.3 %; Mean Corpuscular HGB Conc 32.4 g/dL (31.6-35.5); Mean Corpuscular Hemoglobin 28.3 pg (28.0-33.3); Mean Corpuscular Volume 87.4 fL (83.0-100.0); Mean Platelet Volume 8.8 fL (9.4-12.4); Monocytes # 1.4 K/mcL (0.0-1.3); Monocytes % 8.6 %; Neutrophils # 11.8 K/mcL (1.6-8.9); Platelet Count 321 K/mcL (140-400); Red Blood Count 6.01 M/mcL (4.19-5.50); Red Cell Distribution Width 13.2 % (11.5-14.5); Segmented Neutrophils % 74.5 %; White Blood Count 15.8 K/mcL (4.3-11.1)
[2019-07-26 03:16] LABS: BUN/Creatinine Ratio 17 (6-26); Blood Urea Nitrogen 23 mg/dL (6-20); Calcium 9.4 mg/dL (8.6-10.3); Carbon Dioxide 25 mEq/L (23-29); Chloride 102 mEq/L (98-107); Glucose 122 mg/dL (70-105); Osmolality,Calculated 291 (280-300); Potassium 3.8 mEq/L (3.5-5.1); Sodium 138 mEq/L (136-145); eGFR For African Americans > 60 (> 60); eGFR For Non-African Americans 54 (> 60)
[2019-07-26] MEDS ORDERED: *HR* Heparin 5,000 UNIT/ML VIAL IVP ONE (08:29)
[2019-07-26] MEDS ORDERED: *HR* Heparin 5,000 UNIT/ML VIAL IVP PRN ×2 (08:29)
[2019-07-26] MEDS ORDERED: Heparin 25,000 UNIT/250 ML D5W 25,000 UNIT/250 ML IV.SOLN IVC SCH (08:30)
[2019-07-26] MEDS: Aspirin Enteric Coated 81 MG Tablet PO SCH (08:59)
--- NOTE | 2019-07-26 09:05 | Neurology - Consult Note ---
Date of Encounter: 07/26/19 Time of Encounter: 08:59 Assessment and Plan (1) Cerebellar infarction Current Visit: Yes Status: Acute This is a 58-year-old man with multiple risk factors for stroke including previous cerebellar infarct, hypertension, hyperlipidemia, coronary artery disease and severe obstructive sleep apnea noncompliant with CPAP therapy who developed acute onset of cerebellar infarct likely causing his clinical symptoms of dizziness, slurred speech and right-sided weakness. Cause of the stroke is likely secondary to intracranial atherosclerosis involving the posterior circulation or an embolic event. No known history of atrial fibrillation. Agree with full stroke workup including MRA of neck and brain, echocardiogram, and carotid artery duplex study. For now, agree with dual antiplatelet therapy with the use of aspirin and Plavix. The size of the cerebellar infarct is a less than midsized therefore would not consider a bleeding risk therefore anticoagulation can be started if indicated by cardiology. Please allow permissive hypertension during the acute phase of stroke PT OT and speech evaluation. DVT prophylaxis Please continue medical and supportive care History of Present Illness Chief complaint: Dizziness and abnormal MRI HPI: Mr. Lujan is a 58 year old male with past medical history significant for hypertension, previous CVA, coronary artery disease, obstructive sleep apnea, obesity who developed acute onset of dizziness yesterday morning. Patient had a previous right cerebellar infarct during 2014 which caused dizziness. This time, the patient developed acute onset of dizziness that was similar to when he had his previous stroke. Therefore the patient was brought to emergency room yesterday. Initial CT of the head showed no acute intracranial abnormality. Patient was found to have significantly elevated blood pressure and was admitted with a working diagnosis of hypertensive emergency. Subsequent MRI of the brain demonstrated presence of acute cerebellar infarct involving the left AICA and basilar artery branch territories. There is no evidence of hemorrhagic conversion. Patient has been on a combination of aspirin and Plavix for his cardiac conditions and previous history of stroke. Patient has no prior history of atrial fibrillation or other type of cardiac dysrhythmia. Patient describes his dizziness as a feeling of being drunk. He also has some subtle weakness involving the right arm and leg. Patient has history of severe obstructive sleep apnea however, he has not been compliant with CPAP therapy. Past Med Surg Social Fam HX - Past Medical History Medical history: coronary artery disease, CVA, diabetes, hyperlipidemia, hypertension, myocardial infarction, renal disease, other Additional medical history: MS, OPEN HEART SURGERY Psychiatric history: no psych history - Past Surgical History Surgical History: coronary bypass (CABG) Additional surgical history: right leg surgery - Social History Smoking Status: Never smoker Smokeless Tobacco Status: No Alcohol use: occasionally Drug use: none - Family History Mother Living Status: Hx Family Cardiac Disorders: No Hx Family Respiratory Disorders: No Hx Family Cancer: Yes (Lung) Hx Family GI Disorders: No Hx Family Endocrine Disorder: Yes (Thyroid disease) Hx Family Neuromuscular Disorders: No Hx Family Neurologic Disorders: No Hx Family HEENT Disorders: No Hx Family Autoimmune Disorders: No Father Living Status: Hx Family Cardiac Disorders: Yes Hx Family Respiratory Disorders: No Hx Family Cancer: No Hx Family GI Disorders: No Hx Family Endocrine Disorder: Yes (DM) Hx Family Neuromuscular Disorders: No Hx Family Neurologic Disorders: No Hx Family HEENT Disorders: No Hx Family Autoimmune Disorders: No Medications and Allergies Amlodipine Besylate 10 mg PO DAILY 12/29/17 [History] Aspirin [Lo-Dose Aspirin EC] 81 mg PO DAILY 12/29/17 [History] Lisinopril [Zestril] 20 mg PO DAILY 12/29/17 [History] Oxycodone HCl/Acetaminophen [Endocet 10-325 mg Tablet] 1 tab PO Q6H PRN 12/30/17 [History] Atorvastatin [Lipitor] 80 mg PO HS #60 tablet 01/16/18 [Rx] Clopidogrel [Plavix] 75 mg PO DAILY #30 tablet 01/16/18 [Rx] Nitroglycerin [Nitrostat] 0.4 mg SL Q5MIN PRN 04/23/18 [History] Omeprazole [PriLOSEC] 40 mg PO DAILY@0630 30 Days #30 capsule. 04/25/18 [Rx] Meclizine [Antivert] 25 mg PO TID PRN #30 tablet 07/24/19 [Rx] Metoprolol [Lopressor] 100 mg PO BID 07/25/19 [History] Pregabalin [Lyrica] 250 mg PO HS 07/25/19 [History] Allergy/AdvReac Type Severity Reaction Status Date / Time tramadol [From Ultram] Allergy See Verified 04/23/18 11:06 Comments All Systems: The remainder of the systems were reviewed and are negative - Constitutional Constitutional ROS IM: as per HPI - Nose, Mouth, Throat Nose, mouth and throat: abnormal hearing (left side hearing loss), disequilibrium (yes), dizziness (yes), headache(s) (yes) - Cardiovascular Cardiovascular ROS IM: chest pain (no), chest pain at rest (no), claudication (no), diaphoresis (no), dyspnea (no) - Respiratory Respiratory IM: cough (no) - Gastrointestinal Gastrointestinal: abdominal pain (no) - Genitourinary Genitourinary ROS: difficulty urinating (no) - Musculoskeletal Musculoskeletal ROS IM: abnormal gait (yes), muscle cramps (no), muscle weakness (yes), numbness (yes) - Neurological Neurological ROS: abnormal gait (yes), abnormal hearing (yes), abnormal speech (yes), disequilibrium (yes), dizziness (yes), focal weakness (yes), headache(s) (yes), lack of coordination (yes), numbness (yes) - Psychiatric Psychiatric general PM: anhedonia (no), auditory hallucinations (no) - Endocrine Endocrine IM: change in body appearance (no) Physical Examination - Vital Signs Vital Signs: Initial Vital Signs Temp Pulse Resp BP Pulse Ox 97.8 F 103 18 206/124 99 07/24/19 20:07 07/24/19 20:07 07/24/19 20:07 07/24/19 20:07 07/24/19 20:07 - Constitutional General appearance: uncomfortable - Neurologic Sensorimotor examination: intact Motor examination - right side: 4/5: deltoids, biceps, triceps, wrist flexion, wrist extension, billing and accounting staff assistant, hip flexors, tibialis Anterior, quadriceps, toe extension (EHL), plantarflexion Motor examination - left side: 5/5: deltoids, biceps, triceps, wrist flexion, wrist extension, hip flexors, billing and accounting staff assistant, quadriceps, tibialis Anterior, toe extension (EHL), plantarflexion Detailed sensory examination: intact Posture: other (None) Reflexes: Biceps: 2+, Triceps: 2+, Brachioradialis: 2+, Patella: 2+, Achilles: 2+ Mental Status Examination: awake, alert, oriented to person, oriented to place, oriented to time, follows commands appropriately, answers questions approp riately, no agnosia, no aphasia, no aproxia Cranial nerve examination: PERRL, EOMI (horiozontal nystagmus, small amplitude when gazing to the left side, large coarse one when gazing to right side), visual freedman intact, corneal reflexes brisk symmetrically, sensory to face i ntact, mastication intact, no facial asymmetry is present, no dysarthria, hearing is intact symmetrically (left hearing loss noted), soft palate elevates bilaterally upon phonation, gag reflex intact, flexes SCM and trapezius muscles symmetrically with full power, tongue protrudes midline, no atrophy or facial fasiculations present Results - Laboratory Findings CBC and BMP: 07/26/19 02:47 07/26/19 02:47 Abnormal lab findings: Abnormal lab results WBC 15.8 K/mcL (4.3-11.1) H 07/26/19 02:47 RBC 6.01 M/mcL (4.19-5.50) H 07/26/19 02:47 Hgb 17.0 g/dL (12.9-16.9) H 07/26/19 02:47 Hct 52.5 % (37.5-50.1) H 07/26/19 02:47 MPV 8.8 fL (9.4-12.4) L 07/26/19 02:47 Neutrophils # 11.8 K/mcL (1.6-8.9) H 07/26/19 02:47 Monocytes # 1.4 K/mcL (0.0-1.3) H 07/26/19 02:47 Carbon Dioxide 20 mEq/L (23-29) L 07/24/19 20:59 BUN 23 mg/dL (6-20) H 07/26/19 02:47 Creatinine 1.35 mg/dL (0.70-1.30) H 07/26/19 02:47 Est GFR (Non-Af Amer) 54 (> 60) L 07/26/19 02:47 Glucose 122 mg/dL (70-105) H 07/26/19 02:47 POC Glucose 113 mg/dL (70-99) H 07/25/19 20:33 Troponin I 2.56 ng/mL (< 0.04) H* 07/26/19 02:47 - Diagnostic Findings Additional findings: EXAMINATION: CT OF THE HEAD WITHOUT CONTRAST 07/24/2019 8:53 pm TECHNIQUE: CT of the head was performed without the administration of intravenous contrast. Dose modulation, iterative reconstruction, and/or weight based adjustment of the mA/kV was utilized to reduce the radiation dose to as low as reasonably achievable. COMPARISON: 08/25/2015 brain MRI HISTORY: ORDERING SYSTEM PROVIDED HISTORY: weakness, dizziness FINDINGS: BRAIN/VENTRICLES: The ventricles and sulci are diffusely enlarged. Low attenuation is seen in the periventricular and subcortical white matter. No acute intracranial hemorrhage or acute infarct is identified. Encephalomalacia right cerebellar hemisphere. ORBITS: The visualized portion of the orbits demonstrate no acute abnormality. SINUSES: The visualized paranasal sinuses and mastoid air cells demonstrate no acute abnormality. SOFT TISSUES/SKULL: No acute abnormality of the visualized skull or soft tissues. CT/CT head/brain wo con IMPRESSION: No acute intracranial abnormality. Diffuse atrophic changes with findings suggesting chronic microvascular ischemia and an old right cerebellar hemispheric infarct D/ / Ezio Castillo MD / Ezio Castillo MD Interpreting Provider: Ezio Castillo MD OF THE BRAIN WITHOUT CONTRAST 07/25/2019 8:11 pm TECHNIQUE: Multiplanar multisequence MRI of the brain was performed without the administration of intravenous contrast. COMPARISON: Correlation with earlier head CT. Brain MRI 08/25/2015 HISTORY: ORDERING SYSTEM PROVIDED HISTORY: dizziness in hypertensive emergency. r/o infarct. FINDINGS: INTRACRANIAL STRUCTURES/VENTRICLES: There is restricted diffusion indicating acute infarct in the left cerebellar hemisphere, left brachium pontis, left side of jonn. There is no evidence of hemorrhagic conversion. Old right cerebellar hemisphere infarcts again noted. Areas of T2 FLAIR hyperintensity are seen in the periventricular and subcortical white matter, which are nonspecific, but may represent chronic microvascular ischemic change. No mass effect or midline shift. No evidence of an acute intracranial hemorrhage. There is prominence of the ventricles and sulci due to global parenchymal volume loss. The sellar/suprasellar regions appear unremarkable. The normal signal voids within the major intracranial vessels appear maintained. Basilar dolichoectasia. ORBITS: The visualized portion of the orbits demonstrate no acute abnormality. SINUSES: The visualized paranasal sinuses and mastoid air cells are well aerated. BONES/SOFT TISSUES: The bone marrow signal intensity appears normal. The soft tissues demonstrate no acute abnormality. MR/MR head/brain wo con IMPRESSION: Acute infarct posterior circulation, left AICA and basilar artery branch territories. No evidence of hemorrhagic conversion. The findings were sent to the Radiology Results [facility] at 9:42 pm on 07/25/2019to be communicated to a licensed caregiver. D/ / Ezio Azevedo MD / Ezio Azevedo MD Interpreting Provider: Ezio Azevedo MD OF THE HEAD WITHOUT CONTRAST 07/26/2019 4:05 am TECHNIQUE: CT of the head was performed without the administration of intravenous contrast. Dose modulation, iterative reconstruction, and/or weight based adjustment of the mA/kV was utilized to reduce the radiation dose to as low as reasonably achievable. COMPARISON: MRI brain from 07/25/[address] head from 07/24/2019 HISTORY: ORDERING SYSTEM PROVIDED HISTORY: Assess for evolving CVA/Bleed FINDINGS: BRAIN/VENTRICLES: Left cerebellar hemisphere infarct is stable compared to the prior MRI. No hemorrhagic transformation. Old right cerebellar infarct unchanged. Scattered areas of low attenuation in the periventricular and centrum semiovale. Old lacunar infarcts in the basal ganglia. No extra-axial blood products. No acute intra-axial blood products. ORBITS: The visualized portion of the orbits demonstrate no acute abnormality. SINUSES: The visualized paranasal sinuses and mastoid air cells demonstrate no acute abnormality. SOFT TISSUES/SKULL: No acute abnormality of the visualized skull or soft tissues. CT/CT head/brain wo con IMPRESSION: Posterior circulation infarct with hypoattenuation in the left cerebellar hemisphere, unchanged from prior exam. No evidence of hemorrhagic transformation. Microvascular ischemic changes. D/ / Dusty Brunson / Dusty Brunson Interpreting Provider: Dusty Brunson Consult Discharge Plan - Plan Referrals: Mauro Serrano [Primary Care Provider] -
[2019-07-26 09:12] LABS: Heparin anti-factor XA UFH 0.05 IU/mL (0.30-0.70)
[2019-07-26 09:13] LABS: INR 0.9; Prothrombin Time 10.4 Seconds (9.4-12.1)
[2019-07-26] MEDS ORDERED: Perflutren Lipid Microsphere 1.3 ML in 0.9 % Sodium Chloride 8.7 ML IVP ONE (10:06)
--- NOTE | 2019-07-26 11:30 | Internal Med Progress Note ---
Hospitalist Progress Note - Encounter Date of Encounter: 07/26/19 Time of Encounter: 09:30 - Subjective Interval History: Overnight event noted. MRI brain later came out positive for acute infarct in posterior circulation involving left AICA and basilar artery territories. Patient progresively developed more slurred speech, headache and ?SOB overnight hence CT head was performed which was -ve for hemorrhagic transformation. Troponin was also done which came back elevated at 2.56 and subsequent EKG showed diffuse ST depression and T-wave inversion most pronounced in 1, aVL, and V2 to V6. When asked about the overnight event, patient denies having any chest pain, SOB, or palpitation, but does admit to increased dizziness as well as slurred speech. - Exam Vitals: Temp Pulse Resp BP Pulse Ox 97.6 F 82 12 191/109 95 07/26/19 09:47 07/26/19 09:47 07/26/19 09:47 07/26/19 09:47 07/26/19 09:47 Exam: General: Alert and oriented x self, place, and year. Worsening slurred speech noted. HEENT: horizontal nystagmus bilaterally. PERRL Cardiovascular:Normal S1 & S2, No JVD. Pulse regular. Lungs: clear to auscultation, no wheezes/rales Abdomen:Soft, non-tender, no rigidity. Neurological: R UE/LE power 4/5, L sided power fully intact. No sensory loss. Dysmetria noted on both UEs - Assessment and Plan (1) Cerebellar infarction Current Visit: Yes Status: Acute Assessment and Plan: Presented with dizziness and nystagmus on exam MRI yesterday confirmed acute infarct posterior circulation, left AICA and basilar artery distributions appreciate neuro input; to allow for permissive HTN and obtain MRA/carotid doppler/echocardiogram (2) NSTEMI (non-ST elevated myocardial infarction) Current Visit: Yes Status: Acute Assessment and Plan: Although patient currently denies it, troponin was drawn yesterday due to his shortness of breath and was noted to be elevated at 2.[address] depression and T-wave inversions most pronounced in 1, aVL, and V2 to 6. currently chest pain free discussed with Neurology, ok to start anticoagulation from Neurology standpoint start hep gtt, discussed with cardiology as well trend troponin, echocardiogram continue asa, plavix, statin. Bb on hold to allow for permissive HTN (3) Hypertension Current Visit: Yes Status: Chronic Assessment and Plan: meds on hold to allow for permissive HTN (4) CKD (chronic kidney disease) Current Visit: No Status: Chronic Assessment and Plan: Cr at his baseline (5) Morbid obesity Current Visit: No Status: Chronic DVT Prophylaxis: hep gtt - Time Spent with Patient Total time spent is greater than 50% in coordination of care (as documented) at patient's floor/unit and/or counseling patient: Greater than 35 minutes Plan of Care Discussed with: patient (discussed with Neurology and Cardiology) Internal Medicine: Result - Labs CBC & Chem 7: 07/26/19 02:47 07/26/19 02:47 Labs: Short CBC 07/26/19 Range/Units 02:47 WBC 15.8 H (4.3-11.1) K/mcL Hgb 17.0 H (12.9-16.9) g/dL Hct 52.5 H (37.5-50.1) % Plt Count 321 (140-400) K/mcL Neutrophils # 11.8 H (1.6-8.9) K/mcL BMP 07/25/19 07/26/19 12:50 02:47 Sodium 136 138 Potassium 3.9 3.8 Chloride 101 102 Carbon Dioxide 24 25 BUN 19 23 H Creatinine 1.20 1.35 H Glucose 141 H 122 H Calcium 9.7 9.4 Cardiac Enzymes 07/26/19 07/26/19 Range/Units 02:47 08:39 Troponin I 2.56 H* 1.92 H* (< 0.04) ng/mL - ABG Interpretation ABG results: PT/INR, D-dimer PT 10.4 Seconds (9.4-12.1) 07/26/19 08:39 - Impressions Impressions Brain MRI 07/25/19 05:48 IMPRESSION: Acute infarct posterior circulation, left AICA and basilar artery branch territories. No evidence of hemorrhagic conversion. The findings were sent to the Radiology Results Communication Center at 9:42 pm on 07/25/2019to be communicated to a licensed caregiver. D/ / Ezio Azevedo MD / Ezio Azevedo MD Interpreting Provider: Ezio Azevedo MD Head CT 07/26/19 03:38 IMPRESSION: Posterior circulation infarct with hypoattenuation in the left cerebellar hemisphere, unchanged from prior exam. No evidence of hemorrhagic transformation. Microvascular ischemic changes. D/ / Dusty Brunson / Dusty Brunson Interpreting Provider: Dusty Brunson Consult Discharge Plan - Plan Referrals: Mauro Serrano [Primary Care Provider] - (3) Hypertension Qualifiers: Hypertension type: unspecified Qualified Code(s): I10 - Essential (primary) hypertension (4) CKD (chronic kidney disease) Qualifiers: Chronic kidney disease stage: stage 3 (moderate) Qualified Code(s): N18.3 - Chronic kidney disease, stage 3 (moderate)
--- NOTE | 2019-07-26 13:46 | Cardiology Consult Note ---
Date of Encounter: 07/26/19 Time of Encounter: 13:42 Assessment and Plan (1) Cryptogenic stroke Current Visit: Yes Status: Acute Cerebellar infarction per neurology. Multiple risk factors for CVA. Exact etiology remains unclear, differential includes intracranial atherosclerosis or embolic event. Recommend continued telemetry, monitor for arrhythmias. If source remains unclear, consider ZAHIDA prior to discharge. TTE suboptimal in image quality to evaluate for CVA. Consider event monitor or loop recorder upon discharge if no arrhythmias during this stay. (2) Elevated troponin I level Current Visit: No Status: Acute Elevated troponin of unclear significance. ECG reportedly abnormal. TTE demonstrates preserved LV function. Patient denies chest pain or discomfort. Given acute CVA and current clinical status with neurological impairments, recommend ongoing medical therapy for now. Troponin downtrending. Heparin started by primary team. BP markedly elvated. Given CVA and extreme HTN (BP 190s per records), risk of heparin induced bleeding may outweigh benefits. Hold heparin for now as BP optimized per primary team. Monitor closely, consider repeat head CT as needed. Continue aspirin/Plavix if okay with neurology. Continue statin therapy. Start/resume low dose BB. (3) CAD (coronary artery disease) Current Visit: No Status: Chronic History of CABG, prior PCI. Recommend continue aspirin, Plavix if okay with neurology. Continue statin therapy. Resume BB. Qualifiers: Coronary Disease-Associated Artery/Lesion type: unspecified vessel or lesion type [place] vs. transplanted heart: [place] heart Associated angina: with stable angina Qualified Code(s): I25.118 - Atherosclerotic heart disease of [place] coronary artery with other forms of angina pectoris (4) Hypertension Current Visit: Yes Status: Chronic Significant BP elevation. Your IM management. Need to be careful with extreme HTN, CVA and heparin drip. Will hold heparin for now. Qualifiers: Hypertension type: unspecified Qualified Code(s): I10 - Essential (primary) hypertension Discussion w patient/family: The assessment and plan as outlined above was discussed with the patient and/or family members who expressed understanding and agreement. All questions were answered. Thank you for involving us in the care of your patient. Please call with any questions. History of Present Illness Consult date: 07/26/19 Requesting physician: Ezio Hurley Consult reason: Elevated troponin Chief complaint: CVA History of present illness: Mr. Lujan is a 58 year old male with a history of CAD, prior CABG, prior PCI. Presented with strokelike symptoms. MRI confirmed acute infarct involving the posterior circulation. Overnight, troponin obtained, which was 2.56. ECG reportedly demonstrated diffuse ST depression, but could not be found on the floors. Upon my evaluation, patient has expressive difficulties. He seems to be alert to name, place, and year, but has trouble formulating words. He denies chest pain or discomfort. No unusual dyspnea. TTE performed earlier today was suboptimal in image quality, but grossly demo nstrated normal LV function. Previous testing: Lexiscan nuclear stress test 03/2018: Daily of 58%. Abnormality described in the basal mid inferior and inferoseptal segments. Findings suggest prior infarct with possible mild ischemia. [facility] 12/2017:12/28 patent bypass graft. EF 65%. Trino placed in the left main and proximal ramus. Past Med Surg Social Fam HX - Past Medical History Medical history: coronary artery disease, CVA, diabetes, hyperlipidemia, hypertension, myocardial infarction, renal disease, other Additional medical history: [place], OPEN HEART SURGERY Psychiatric history: no psych history - Past Surgical History Surgical History: coronary bypass (CABG) Additional surgical history: right leg surgery - Social History Smoking Status: Never smoker Smokeless Tobacco Status: No Alcohol use: occasionally Drug use: none - Family History Mother Living Status: Hx Family Cardiac Disorders: No Hx Family Respiratory Disorders: No Hx Family Cancer: Yes (Lung) Hx Family GI Disorders: No Hx Family Endocrine Disorder: Yes (Thyroid disease) Hx Family Neuromuscular Disorders: No Hx Family Neurologic Disorders: No Hx Family HEENT Disorders: No Hx Family Autoimmune Disorders: No Father Living Status: Hx Family Cardiac Disorders: Yes Hx Family Respiratory Disorders: No Hx Family Cancer: No Hx Family GI Disorders: No Hx Family Endocrine Disorder: Yes (DM) Hx Family Neuromuscular Disorders: No Hx Family Neurologic Disorders: No Hx Family HEENT Disorders: No Hx Family Autoimmune Disorders: No Medications and Allergies Amlodipine Besylate 10 mg PO DAILY 12/29/17 [History] Aspirin [Lo-Dose Aspirin EC] 81 mg PO DAILY 12/29/17 [History] Lisinopril [Zestril] 20 mg PO DAILY 12/29/17 [History] Oxycodone HCl/Acetaminophen [Endocet 10-325 mg Tablet] 1 tab PO Q6H PRN 12/30/17 [History] Atorvastatin [Lipitor] 80 mg PO HS #60 tablet 01/16/18 [Rx] Clopidogrel [Plavix] 75 mg PO DAILY #30 tablet 01/16/18 [Rx] Nitroglycerin [Nitrostat] 0.4 mg SL Q5MIN PRN 04/23/18 [History] Omeprazole [PriLOSEC] 40 mg PO DAILY@0630 30 Days #30 capsule. 04/25/18 [Rx] Meclizine [Antivert] 25 mg PO TID PRN #30 tablet 07/24/19 [Rx] Metoprolol [Lopressor] 100 mg PO BID 07/25/19 [History] Pregabalin [Lyrica] 250 mg PO HS 07/25/19 [History] Allergy/AdvReac Type Severity Reaction Status Date / Time tramadol [From Ultram] Allergy See Verified 04/23/18 11:06 Comments All Systems Review: The remainder of the systems were reviewed and are negative - Cardiovascular Cardiovascular: as per HPI Physical Examination Vital Signs, Last 4 Hours Temp Pulse Resp BP Pulse Ox 07/26/19 09:47 97.6 F 82 12 191/109 95 General: No Apparent Distress, Other (Deficits noted in speech, coordination) HEENT: Atraumatic, Normocephaly, Mucus Membranes Moist Neck: No JVD, Normal carotid pulses Cardiac: Reg Rate and Rhythm, Normal S1 and S2, No Murmur, Other (Distant) Lungs: Normal Breath Sounds, No Wheeze, Rales, Rhonchi, Other (Shallow) Neuro: Other (CVA deficits as per neurology) Skin: No rashes noted on visualized skin Musculoskeletal: No Chest Wall Tenderness Extremities: No Clubbing, No Cyanosis, No Edema Results 07/26/19 02:47 07/26/19 02:47 Lab Results 07/26/19 07/26/19 07/26/19 02:47 02:47 02:47 WBC 15.8 H Hgb 17.0 H Hct 52.5 H Plt Count 321 INR Sodium 138 Potassium 3.8 Chloride 102 Carbon Dioxide 25 BUN 23 H Creatinine 1.35 H Glucose 122 H Calcium 9.4 Troponin I 2.56 H* 07/26/19 07/26/19 08:39 08:39 WBC Hgb Hct Plt Count INR 0.9 Sodium Potassium Chloride Carbon Dioxide BUN Creatinine Glucose Calcium Troponin I 1.92 H* - Imaging and Cardiology Stress Test: report reviewed Echo: report reviewed Cardiac cath: report reviewed - EKG Interpretation EKG results cardiology: personally reviewed (07/25/2019), other (Could not find ECG from last night.) Consult Discharge Plan - Plan Referrals: Mauro Serrano [Primary Care Provider] -
[2019-07-26] MEDS: *HR* Heparin 5,000 UNIT/ML VIAL SQ SCH ×2 (15:37→21:56)
[2019-07-27 02:08] LABS: Basophils # 0.1 K/mcL (0.0-0.2); Basophils % 0.6 %; Eosinophils # 0.2 K/mcL (0.0-0.6); Eosinophils % 1.7 %; Hematocrit 53.4 % (37.5-50.1); Hemoglobin 17.7 g/dL (12.9-16.9); Immature Granulocytes % 0.7 % (0-4); Lymphocytes # 2.2 K/mcL (0.6-4.6); Mean Corpuscular HGB Conc 33.1 g/dL (31.6-35.5); Mean Corpuscular Hemoglobin 29.1 pg (28.0-33.3); Mean Corpuscular Volume 87.7 fL (83.0-100.0); Mean Platelet Volume 8.6 fL (9.4-12.4); Monocytes # 1.2 K/mcL (0.0-1.3); Monocytes % 8.6 %; Neutrophils # 10.1 K/mcL (1.6-8.9); Platelet Count 320 K/mcL (140-400); Red Blood Count 6.09 M/mcL (4.19-5.50); Segmented Neutrophils % 72.4 %
[2019-07-27 02:25] LABS: BUN/Creatinine Ratio 18 (6-26); Blood Urea Nitrogen 23 mg/dL (6-20); Calcium 9.4 mg/dL (8.6-10.3); Carbon Dioxide 23 mEq/L (23-29); Chloride 102 mEq/L (98-107); Glucose 149 mg/dL (70-105); Magnesium 2.3 mg/dL (1.6-2.6); Osmolality,Calculated 288 (280-300); Potassium 3.4 mEq/L (3.5-5.1); Sodium 136 mEq/L (136-145); eGFR For African Americans > 60 (> 60); eGFR For Non-African Americans 58 (> 60)
[2019-07-27] MEDS: *HR* Heparin 5,000 UNIT/ML VIAL SQ SCH ×2 (06:27→14:07)
--- NOTE | 2019-07-27 06:31 | Event Note ---
Date of Encounter: 07/27/19 Time of Encounter: 06:24 Alerted by pts. nurse RUBI Byrd that the pts. CXR I ordered had resulted and shows cardiomegaly with central congestion and interstitial edema. No effusion. No pneumothorax. Volume overload. Pts. lungs sound wet this a.m. If lasix is administered it must be done carefully as to not drop BP more than 15% d/t pts. acute infarct. Nurse instructed to continue monitoring this pt. closely and alert me immediately of any adverse changes.
[2019-07-27] MEDS ORDERED: Furosemide 40 MG/4 ML VIAL IVP ONE (09:55)
[2019-07-27] MEDS ORDERED: Potassium Chloride 40 MEQ, Lidocaine 1% 2 ML in D5% in Water 500 ML IVPB ONE (10:31)
[2019-07-27 10:51] LABS: ABG Base Excess 0 mEq/L (-2 to 3); ABG HCO3 25 mEq/L (21-27); ABG Oxygen Saturation 96 % (95-98); ABG PCO2 40 mmHg (35-45); ABG PH 7.41 pH Units (7.32-7.45); ABG PO2 80 mmHg (85-104); ABG TCO2 26 mEq/L (20-26)
--- NOTE | 2019-07-27 11:30 | Internal Med Progress Note ---
Hospitalist Progress Note - Encounter Date of Encounter: 07/27/19 Time of Encounter: 09:15 - Subjective Interval History: Overnight event noted. Patient apparently had an episode of aspiration for which he had chest x-ray done. It did not show any mary ellen consolidation but was consistent with cardiomegaly with central congestion and interstitial edema. Lasix was not given however to allow for permissive HTN. Patient was seen this morning where he appeared more lethargic today. Also complained of decreased hearing on the left. No chest pain, palpitation, cough, or sputum production but is noted to have gurgling sound when speaking. - Exam Vitals: Temp Pulse Resp BP Pulse Ox 98.1 F 94 16 173/109 93 07/27/19 11:14 07/27/19 11:14 07/27/19 11:14 07/27/19 11:14 07/27/19 11:14 Exam: General: continues to remain oriented x self, place, and year but more l ethargic. Arousable by vocal command HEENT: horizontal nystagmus bilaterally. PERRL Cardiovascular:Normal S1 & S2, No JVD. Pulse regular. Lungs: Diffuse bilateral rales Abdomen:Soft, non-tender, no rigidity. Neurological: Unable to reliably participate in neuro exam but able to move all 4 limbs spontaneously without significant difficulty - Assessment and Plan (1) Cerebellar infarction Current Visit: Yes Status: Acute Assessment and Plan: Presented with dizziness and nystagmus on exam MRI 07/25 confirmed the presence of acute infarct posterior circulation, left AICA and basilar artery distributions was being allowed for permissive HTN but is now > 24 hours. Will resume antiHTN meds today telemetry overnight detected afib MRA without significant flow-limiting stenosis, carotid doppler unremarkable, echocardiogram without obvious PFO continue DAPT, statin pt is more lethargic today however, will repeat CT head to ensure the absence of intracranial hemorrhage prior to starting heparin drip. Discussed with cardiology. follow with neuro (2) NSTEMI (non-ST elevated myocardial infarction) Current Visit: Yes Status: Acute Assessment and Plan: Although patient currently denies it, troponin was drawn yesterday due to his shortness of breath and was noted to be elevated at 2.[address] depression and T-wave inversions most pronounced in 1, aVL, and V2 to 6. remains chest pain free, subsequent troponin came down to 1.92 echocardiogram showed preserved EF appreciate cardiology input, hep gtt was put on hold while he was allowed for permissive HTN as above will continue asa, plavix, bb, and statin and discuss with cardiology after repeat CT head for the possibility of hep gtt (3) (HFpEF) heart failure with preserved ejection fraction Current Visit: Yes Status: Acute Assessment and Plan: CXR done overnight showed findings compatible with pulmonary edema lasix was not given overnight due to the concern for lowering BP too rapidly. However, pt is now > 24 hours window and anti HTN meds were resumed this morning will start IV lasix 40mg BID and monitor his oxygenation. Check ABG to look for respiratory acidosis given his lethargy (4) Afib Current Visit: Yes Status: Acute Assessment and Plan: noted on tele overnight bb resumed today CHADSVASC 4 for CHF, HTN, CVA will discuss about AC with cardiology after repeat CT head is performed (5) Hypertension Current Visit: Yes Status: Chronic Assessment and Plan: Meds restarted (6) CKD (chronic kidney disease) Current Visit: No Status: Chronic Assessment and Plan: Cr at his baseline (7) Morbid obesity Current Visit: No Status: Chronic DVT Prophylaxis: SQ hep for now - Time Spent with Patient Total time spent is greater than 50% in coordination of care (as documented) at patient's floor/unit and/or counseling patient: Greater than 35 minutes Plan of Care Discussed with: nurse (Discussed with cardiology) Internal Medicine: Result - Labs CBC & Chem 7: 07/27/19 01:54 07/27/19 01:54 Labs: Short CBC 07/27/19 Range/Units 01:54 WBC 14.0 H (4.3-11.1) K/mcL Hgb 17.7 H (12.9-16.9) g/dL Hct 53.4 H (37.5-50.1) % Plt Count 320 (140-400) K/mcL Neutrophils # 10.1 H (1.6-8.9) K/mcL BMP 07/27/19 01:54 Sodium 136 Potassium 3.4 L Chloride 102 Carbon Dioxide 23 BUN 23 H Creatinine 1.28 Glucose 149 H Calcium 9.4 - ABG Interpretation ABG results: ABG ABG pH 7.41 pH Units (7.32-7.45) 07/27/19 10:46 ABG pCO2 40 mmHg (35-45) 07/27/19 10:46 ABG pO2 80 mmHg (85-104) L 07/27/19 10:46 ABG O2 Saturation 96 % (95-98) 07/27/19 10:46 PT/INR, D-dimer PT 10.4 Seconds (9.4-12.1) 07/26/19 08:39 - Impressions Impressions Echocardiogram 07/26/19 07:47 Impressions: LVEF 60%. Normal LV chamber size, wall thickness and grossly normal function. Mild left ventricular diastolic dysfunction. Atypical septal motion consistent with post-operative status. Right ventricle was not well visualized. Grossly, it is normal in function. Suboptimal image quality, but no obvious evidence of a PFO with agitated saline contrast. Unable to estimate RVSP due to lack of TR jet. No obvious significant valvular dysfunction. No obvious cardiac source of CVA identified. Consider ZAHIDA if clinically appropriate. Left Ventricular Wall Motion: Rest Echo Findings All wall segments showed normal motion. Findings: Study Quality * Technically sub-optimal due to poor echocardiographic windows. ECG Findings * Normal sinus rhythm. Left Ventricle * LVEF 60%. * Normal LV chamber size, wall thickness and grossly function. * Mild left ventricular diastolic dysfunction. * Atypical septal motion consistent with post-operative status. Right Ventricle * Right ventricle was not well visualized. Grossly, it is normal in function. Left Atrium * Mildly dilated left atrium. Right Atrium * Normal right atrial size. Interatrial Septum * Suboptimal image quality, but no obvious evidence of a PFO with agitated saline contrast. Aortic Valve * Aortic valve not well visualized. * No aortic stenosis. * No aortic regurgitation. Mitral Valve * Mildly thickened mitral valve leaflets. * No mitral regurgitation. * No mitral stenosis. Tricuspid Valve * Tricuspid valve not well visualized. * No tricuspid regurgitation. * Unable to estimate RVSP due to lack of TR jet. Pulmonic Valve * Pulmonic valve not well visualized. Aorta * Normally sized aortic root. Pericardium * The pericardium appears normal. IVC * Normal IVC dimensions and inspiratory collapse. Pulmonary Artery * Pulmonary artery not well visualized. Neck MRA 07/26/19 11:35 IMPRESSION: Motion artifact severely degrades the images. No significant abnormality of the neck vessels. Dolichoectasia of the basilar artery. No significant abnormality of the posterior circulation. D/ / 07/26/2019 13:53:42 Clarisse Jaime MD / gina Interpreting Provider: Clarisse Jaime MD Head MRA 07/26/19 11:36 IMPRESSION: Motion artifact severely degrades the images. No significant abnormality of the neck vessels. Dolichoectasia of the basilar artery. No significant abnormality of the posterior circulation. D/ / 07/26/2019 13:53:42 Clarisse Jaime MD / gina Interpreting Provider: Clarisse Jaime MD Chest X-Ray 07/26/19 22:15 IMPRESSION: Volume overload. D/ / Dusty Brunson / Dusty Brunson Interpreting Provider: Dusty Brunson Consult Discharge Plan - Plan Referrals: Mauro Serrano [Primary Care Provider] - (3) (HFpEF) heart failure with preserved ejection fraction Qualifiers: Heart failure chronicity: acute on chronic Qualified Code(s): I50.33 - Acute on chronic diastolic (congestive) heart failure (4) Afib Qualifiers: Atrial fibrillation type: unspecified Qualified Code(s): I48.91 - Unspecified atrial fibrillation (5) Hypertension Qualifiers: Hypertension type: unspecified Qualified Code(s): I10 - Essential (primary) hypertension (6) CKD (chronic kidney disease) Qualifiers: Chronic kidney disease stage: stage 3 (moderate) Qualified Code(s): N18.3 - Chronic kidney disease, stage 3 (moderate)
--- NOTE | 2019-07-27 12:05 | Cardiology Progress Note ---
Date of Encounter: 07/27/19 Time of Encounter: 11:00 Assessment and Plan (1) Cerebellar infarction Current Visit: Yes Status: Acute Per cardiology: -Cerebellar infarction per neurology. -Telemetry strips reviewed with , overnight paroxysmal atrial fibrillation noted. -Patient lethargic today. Difficult to arouse. -Management per primary and neurology services. (2) Elevated troponin I level Current Visit: No Status: Acute Per cardiology: -Elevated troponin of unclear significance, negative, 2.56, 1.92. --ECG abnormal in the setting of CVA. -TTE demonstrates preserved LV function. -Patient denies chest pain or discomfort. -Given acute CVA and current clinical status with neurological impairments, recommend ongoing medical therapy for now. Troponin downtrending. -Continue asa, statin, plavix, BB. -Continue current medical therapy. (3) Afib Current Visit: Yes Status: Acute Per cardiology: -PAF noted overnight, HR controlled on BB. -[id number] score 6 (HTN, CVA2, CHF, vascular disease, DM). Recommend penitentiary anticoagulation when able. -Ideally would recommend heparin drip currently, however neurological status seems be worse than yesterday. Repeat head CT pending. Discussed with , If head CT without acute changes and if ok with neurology, would recommend starting heparin drip. 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 -Continue BB for rate control. -Will continue to monitor. Qualifiers: Atrial fibrillation type: paroxysmal Qualified Code(s): I48.0 - Paroxysmal atrial fibrillation (4) (HFpEF) heart failure with preserved ejection fraction Current Visit: Yes Status: Acute Per cardiology: -Diastolic CHF, NYHA class IV symptoms. -Chest x-ray with central congestion and interstitial edema. -Started on IV lasix. -TTE as above with LVEF preserved. -Agree with diuresis. -Strict i/os, fluid restriction, daily weights. Qualifiers: Heart failure chronicity: acute on chronic Qualified Code(s): I50.33 - Acute on chronic diastolic (congestive) heart failure Discussion w patient/family: The assessment and plan as outlined above was discussed with the patient who expressed understanding and agreement. All questions were answered. Thank you for involving us in the care of your patient. Please call with any questions. Discussed and reviewed with . Subjective Principal diagnosis: CVA Interval history: Patient lethargic, difficulty to arouse. Objective Vital Signs, Last 4 Hours Temp Pulse Resp BP Pulse Ox 07/27/19 11:14 98.1 F 94 16 173/109 93 General: Other (Lethargic, difficult to arouse) HEENT: Atraumatic, Normocephaly, Mucus Membranes Moist Neck: No JVD, Normal carotid pulses Cardiac: Normal S1 and S2, No Murmur, Other (Irregularly irregular) Lungs: Other (Lung sounds coarse throughout. ) Neuro: Other (Oriented to person) Abdomen: Soft, Non-Tender Skin: No rashes noted on visualized skin Musculoskeletal: No Chest Wall Tenderness Extremities: No Clubbing, No Cyanosis, No Edema, Normal Pulses Results 07/27/19 01:54 07/27/19 01:54 Lab Results Impressions Echocardiogram 07/26/19 07:47 Impressions: LVEF 60%. Normal LV chamber size, wall thickness and grossly normal function. Mild left ventricular diastolic dysfunction. Atypical septal motion consistent with post-operative status. Right ventricle was not well visualized. Grossly, it is normal in function. Suboptimal image quality, but no obvious evidence of a PFO with agitated saline contrast. Unable to estimate RVSP due to lack of TR jet. No obvious significant valvular dysfunction. No obvious cardiac source of CVA identified. Consider ZAHIDA if clinically appropriate. Left Ventricular Wall Motion: Rest Echo Findings All wall segments showed normal motion. Findings: Study Quality * Technically sub-optimal due to poor echocardiographic windows. ECG Findings * Normal sinus rhythm. Left Ventricle * LVEF 60%. * Normal LV chamber size, wall thickness and grossly function. * Mild left ventricular diastolic dysfunction. * Atypical septal motion consistent with post-operative status. Right Ventricle * Right ventricle was not well visualized. Grossly, it is normal in function. Left Atrium * Mildly dilated left atrium. Right Atrium * Normal right atrial size. Interatrial Septum * Suboptimal image quality, but no obvious evidence of a PFO with agitated saline contrast. Aortic Valve * Aortic valve not well visualized. * No aortic stenosis. * No aortic regurgitation. Mitral Valve * Mildly thickened mitral valve leaflets. * No mitral regurgitation. * No mitral stenosis. Tricuspid Valve * Tricuspid valve not well visualized. * No tricuspid regurgitation. * Unable to estimate RVSP due to lack of TR jet. Pulmonic Valve * Pulmonic valve not well visualized. Aorta * Normally sized aortic root. Pericardium * The pericardium appears normal. IVC * Normal IVC dimensions and inspiratory collapse. Pulmonary Artery * Pulmonary artery not well visualized. Neck MRA 07/26/19 11:35 IMPRESSION: Motion artifact severely degrades the images. No significant abnormality of the neck vessels. Dolichoectasia of the basilar artery. No significant abnormality of the posterior circulation. D/ / 07/26/2019 13:53:42 Clarisse Jaime MD / gina Interpreting Provider: Clarisse Jaime MD Head MRA 07/26/19 11:36 IMPRESSION: Motion artifact severely degrades the images. No significant abnormality of the neck vessels. Dolichoectasia of the basilar artery. No significant abnormality of the posterior circulation. D/ / 07/26/2019 13:53:42 Clarisse Jaime MD / gina Interpreting Provider: Clarisse Jaime MD Chest X-Ray 07/26/19 22:15 IMPRESSION: Volume overload. D/ / Dusty Brunson / Dusty Brunson Interpreting Provider: Dusty Brunson Active Medications Acetaminophen (Tylenol) 650 mg PO Q6H PRN PRN Reason: Pain Stop: 01/24/20 23:03 Last Admin: 07/26/19 08:59 Dose: 650 mg Documented by: Amlodipine Besylate (Norvasc) 10 mg PO DAILY [facility]; Protocol Stop: 01/26/20 09:01 Aspirin (Aspirin Ec) 81 mg PO DAILY [facility] Stop: 01/24/20 09:01 Last Admin: 07/26/19 08:59 Dose: 81 mg Documented by: Atorvastatin Calcium (Lipitor) 80 mg PO HS [facility] Stop: 01/24/20 21:01 Last Admin: 07/26/19 21:54 Dose: Not Given Documented by: Clopidogrel Bisulfate (Plavix) 75 mg PO DAILY [facility] Stop: 01/24/20 09:01 Last Admin: 07/26/19 08:59 Dose: 75 mg Documented by: Furosemide (Lasix) 40 mg IVP BID [facility] Stop: 01/26/20 21:01 Heparin Sodium (Porcine) (Heparin) 5,000 unit SQ Q8HCO [facility]; Protocol Stop: 01/25/20 14:01 Last Admin: 07/27/19 06:27 Dose: 5,000 unit Documented by: Potassium Chloride 40 meq/ (Lidocaine 2 ml/ Dextrose) 522 mls @ 130.5 mls/hr IVPB ONCE ONE Stop: 07/27/19 14:30 Labetalol HCl (Labetalol) 10 mg IVP Q4H PRN PRN Reason: Hypertension Stop: 01/26/20 10:01 Lisinopril (Zestril) 20 mg PO DAILY [facility]; Protocol Stop: 01/26/20 09:01 Metoprolol Tartrate (Lopressor) 100 mg PO BID [facility] Stop: 01/26/20 09:01 Nitroglycerin (Nitroglycerin) 0.4 mg SL Q5MIN PRN PRN Reason: Chest Pain Stop: 01/24/20 01:28 Omeprazole (Prilosec) 40 mg PO DAILY@0630 [facility]; Protocol Stop: 01/24/20 06:31 Last Admin: 07/27/19 06:27 Dose: Not Given Documented by: Ondansetron HCl (Zofran) 4 mg IVP Q6H PRN; Protocol PRN Reason: Nausea Stop: 01/24/20 05:37 Last Admin: 07/25/19 05:41 Dose: 4 mg Documented by: Oxycodone/Acetaminophen (Percocet 10/325) 1 each PO Q6H PRN PRN Reason: Pain Stop: 01/24/20 01:28 Laboratory Tests 07/24/19 07/26/19 07/26/19 20:59 02:47 08:39 WBC Hgb Potassium Creatinine Troponin I < 0.03 2.56 H* 1.92 H* 07/27/19 07/27/19 01:54 01:54 WBC 14.0 H Hgb 17.7 H Potassium 3.4 L Creatinine 1.28 Troponin I - Imaging and Cardiology Chest Xray: report reviewed Echo: report reviewed - EKG Interpretation EKG results cardiology: other (Telemetry reviewed with average HR previous 12 hours noted to be 87, PAF noted.) Consult Discharge Plan - Plan Referrals: Mauro Serrano [Primary Care Provider] -
--- NOTE | 2019-07-27 12:25 | Neurology Progress Note ---
Date of Encounter: 07/27/19 Time of Encounter: 12:22 Assessment and Plan (1) Cerebellar infarction Current Visit: Yes Status: Acute Patient with left cerebellar/pontine infarct, previous history of right cerebellar infarct newly found atrial fibrillation. Has slightly worsening mental status and right sided weakness likely related to regional swelling/edema as expected from a new cerebral infarct. Repeat CT of head however, showed no changes from previous study and patient's with acute infarct may have worsening mental status or neurological deficits within few days after onset of stroke due to edema/or fluctuating medical conditions such as BP changes and general medical conditions. As this time would recommend close neuro checks and continuing medical and supportive care. Would recommend repeat CT of head in AM. Would give green light for anticoagulation therapy in the form of heparin drip for treatment of atrial fibrillation. If anticoagulation therapy is to be started then from neurology perspective he does not need dual antiplatelet therapy but would defer to cardiology. STAT CT of head should be done if acute neurological status changes occur. Subjective Principal diagnosis: CVA Interval history: Patient seen and examined. Reported an episode of possible aspiration overnight and he was more lethagic and weaker to the right side. Obtained CT of head STAT and it showed no changes from previous study. Patient was found to have Atrial fibrillation. Is starting heprain drip. Patient was drowsy to begin with during examination however, as he becomes more alert and his neurological examination improves. No significant changes from yesterday and right hemiparesis 4/5. CT of head reviewed and no significant midline shift and no evidence of impending herniation. No hemorrhagic conversion noted. Objective - Constitutional Vitals: Temp Pulse Resp BP Pulse Ox 98.1 F 94 16 173/109 93 07/27/19 11:14 07/27/19 11:14 07/27/19 11:14 07/27/19 11:14 07/27/19 11:14 - Neurological Exam Sensorimotor examination: Present: intact (reduced pinprick to left face) Motor examination - right side: 4/5: deltoids, biceps, triceps, wrist flexion, wrist extension, bridal service sales and management, hip flexors, tibialis Anterior, quadriceps, toe extension (EHL), plantarflexion Motor examination - left side: 5/5: deltoids, biceps, triceps, wrist flexion, wrist extension, hip flexors, bridal service sales and management, quadriceps, tibialis Anterior, toe extension (EHL), plantarflexion Sensation intact: Present: intact Posture: Present: other Reflex and gait examination: other (Gait not tested) Reflexes: Biceps: 3+, Triceps: 3+, Brachioradialis: 3+, Patella: 3+, Achilles: 3+ Mental Status Examination: Present: awake, alert, oriented to person, oriented to place, oriented to time, follows commands appropriately, answers questions appropriately, no agnosia, no aphasia, no aproxia Cranial nerve examination: Present: PERRL, EOMI (horiozontal nystagmus, small amplitude when gazing to the left side, large coarse one when gazing to right side), visual freedman intact, corneal reflexes brisk symmetrically, sensory to face intact, mastication intact, no facial asymmetry is present, no dysarthria, hearing is intact symmetrically (left hearing loss noted), soft palate elevates bilaterally upon phonation, gag reflex intact, flexes SCM and trapezius muscles symmetrically with full power, tongue protrudes midline, no atrophy or facial fasiculations present Results - Laboratory Findings CBC and BMP: 07/27/19 01:54 07/27/19 01:54 Abnormal lab findings: Abnormal lab results WBC 14.0 K/mcL (4.3-11.1) H 07/27/19 01:54 RBC 6.09 M/mcL (4.19-5.50) H 07/27/19 01:54 Hgb 17.7 g/dL (12.9-16.9) H 07/27/19 01:54 Hct 53.4 % (37.5-50.1) H 07/27/19 01:54 MPV 8.6 fL (9.4-12.4) L 07/27/19 01:54 Neutrophils # 10.1 K/mcL (1.6-8.9) H 07/27/19 01:54 Monocytes # 1.4 K/mcL (0.0-1.3) H 07/26/19 02:47 Heparin Anti-Xa, Unfract 0.06 IU/mL (0.30-0.70) L 07/26/19 17:08 ABG pO2 80 mmHg (85-104) L 07/27/19 10:46 Potassium 3.4 mEq/L (3.5-5.1) L 07/27/19 01:54 Carbon Dioxide 20 mEq/L (23-29) L 07/24/19 20:59 BUN 23 mg/dL (6-20) H 07/27/19 01:54 Creatinine 1.35 mg/dL (0.70-1.30) H 07/26/19 02:47 Est GFR (Non-Af Amer) 58 (> 60) L 07/27/19 01:54 Glucose 149 mg/dL (70-105) H 07/27/19 01:54 POC Glucose 115 mg/dL (70-99) H 07/26/19 07:46 Troponin I 1.92 ng/mL (< 0.04) H* 07/26/19 08:39 Consult Discharge Plan - Plan Referrals: Mauro Serrano [Primary Care Provider] -
[2019-07-27 12:52] LABS: Bilirubin,Urine Negative (Negative); Blood,Urine Small (Negative); Clarity,Urine Clear (Clear); Color,Urine Yellow (Yellow); Glucose,Urine (UA) Normal (Normal); Ketones,Urine Negative (Negative); Leukocyte Esterase,Urine Negative (Negative); Nitrite,Urine Negative (Negative); Protein,Urine Negative (Neg-Trace); Specific Gravity,Urine 1.013 (1.010-1.025); Urobilinogen,Urine Normal (Normal)
[2019-07-27 12:55] LABS: Bacteria,Urine None Seen per hpf (None-Few); Hyaline Casts,Urine Few per lpf (None-Few); Squamous Epithelial Cell,Urine Moderate per lpf (None-Few); WBC,Urine 0-3 per hpf (0-3)
[2019-07-27] MEDS: *HR* Labetalol 20 MG/4 ML SYRINGE IVP PRN (14:07)
[2019-07-27] MEDS: Lisinopril 20 MG TABLET PO SCH (14:28)
[2019-07-27] MEDS: amLODIPine 5 MG TABLET PO SCH (14:29)
[2019-07-27] MEDS: Metoprolol 100 MG TABLET PO SCH ×2 (14:30→20:15)
[2019-07-27] MEDS: Aspirin Enteric Coated 81 MG Tablet PO SCH (14:30)
[2019-07-27] MEDS ORDERED: *HR* Heparin 5,000 UNIT/ML VIAL IVP PRN ×2 (15:07)
[2019-07-27 16:05] LABS: Prothrombin Time 11.2 Seconds (9.4-12.1)
[2019-07-27 16:06] LABS: Heparin anti-factor XA UFH 0.09 IU/mL (0.30-0.70)
[2019-07-27] MEDS: Heparin 25,000 UNIT/250 ML D5W 25,000 UNIT/250 ML IV.SOLN IVC SCH (16:36)
[2019-07-27] MEDS ORDERED: Furosemide 40 MG/4 ML VIAL IVP SCH (21:00)
--- NOTE | 2019-07-28 02:26 | Event Note ---
Date of Encounter: 07/27/19 Time of Encounter: 20:24 Alerted by pts. nurse RUBI Hanna to come see the pt. immediately. Pt. has a PMH of uncontrolled hypertension, prediabetes, cerebrovascular disease and CAD status post 2 valve CABG in 2 stents placed with known 3 valve disease. Patient was admited on 07/25/19 w/CVA symptoms. MRI on 07/25/19 showed acute infarct posterior circulation, left AICA and basilar artery branch territories. No evidence of hemorrhagic conversion. Over the next several days, pts. acute CVA seems to be evolving and pts. HTN has been monitored carefully. Saw the pt. last night w/symptoms worse than previously on admission. Tonight, pts. right side is flaccid, nystagamus present, patient reports difficulty w/vision d/t blurred vision. Patient has also experienced left-sided hearing loss since CVA onset. On exam, patient understands questions posed to him but has difficulty responding. Pupils unequal. Stat CT of the head/brain ordered which showed stable CT of the brain. No acute intracranial abnormality. 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 Stable multifocal infarcts as outlined above, including the cerebellum, thalami, and left basal ganglia. Paged Dr. Hutchins of Neurology to discuss pts. worsening condition. Recommendation for close monitoring and transfer to a unit of higher acuity. Discussed ICU w/Drs. Prince and Tc, however it was determined that the pt. could be monitored effectively in 2N versus ICU. Dr. Hutchins to see the pt. again in the a.m. Nurse instructed to continue monitoring this pt. closely for worsening neurological deficits or adverse changes and alert me immediately. Patient transferred to 2N9. Will continue to follow closely.
[2019-07-28 05:34] LABS: Basophils # 0.1 K/mcL (0.0-0.2); Basophils % 0.7 %; Eosinophils # 0.3 K/mcL (0.0-0.6); Eosinophils % 2.1 %; Hematocrit 55.1 % (37.5-50.1); Hemoglobin 18.1 g/dL (12.9-16.9); Immature Granulocytes % 0.8 % (0-4); Immature Platelets 1.7 % (1.1-6.1); Lymphocytes # 2.6 K/mcL (0.6-4.6); Lymphocytes % 17.3 %; Mean Corpuscular HGB Conc 32.8 g/dL (31.6-35.5); Mean Corpuscular Hemoglobin 28.4 pg (28.0-33.3); Mean Corpuscular Volume 86.5 fL (83.0-100.0); Monocytes # 1.4 K/mcL (0.0-1.3); Monocytes % 9.6 %; Neutrophils # 10.3 K/mcL (1.6-8.9); Platelet Count 327 K/mcL (140-400); Red Blood Count 6.37 M/mcL (4.19-5.50); Red Cell Distribution Width 13.5 % (11.5-14.5); Segmented Neutrophils % 69.5 %; White Blood Count 14.9 K/mcL (4.3-11.1)
[2019-07-28 05:39] LABS: Calcium 9.4 mg/dL (8.6-10.3); Magnesium 2.5 mg/dL (1.6-2.6); Potassium 3.1 mEq/L (3.5-5.1)
[2019-07-28] MEDS: Heparin 25,000 UNIT/250 ML D5W 25,000 UNIT/250 ML IV.SOLN IVC SCH ×2 (05:59→20:43)
[2019-07-28] MEDS ORDERED: Potassium Chloride 40 MEQ, Lidocaine 1% 2 ML in 0.9 % Sodium Chloride 500 ML IVPB ONE (09:23)
--- NOTE | 2019-07-28 09:26 | Internal Med Progress Note ---
Hospitalist Progress Note - Encounter Date of Encounter: 07/28/19 Time of Encounter: 07:45 - Subjective Interval History: Overnight event noted. Patient developed worsening right-sided weakness, L sided hearing loss, and more pronounced slurred speech overnight hence CT head was done which did not show any new intracranial processes. Patient's cough a ppears to be better but continues to require 3-4 L of oxygen despite diuresis yesterday. Also had a temperature of 99.7 at 11pm last night. - Exam Vitals: Temp Pulse Resp BP Pulse Ox 98.1 F 92 18 166/106 95 07/28/19 07:00 07/28/19 08:00 07/28/19 07:00 07/28/19 07:00 07/28/19 07:00 Exam: General: continues to remain oriented to self, place, and year but speech is more slurred HEENT: horizontal nystagmus bilaterally. PERRL Cardiovascular:Normal S1 & S2, No JVD. Pulse regular. Lungs: improving aeration in L lung field but R lung field with mild rhonchi Abdomen:Soft, non-tender, no rigidity. Neurological: R UE/LE power 2/5 which is progressively worsening - Assessment and Plan (1) Cerebellar infarction Current Visit: Yes Status: Acute Assessment and Plan: Presented with dizziness and nystagmus on exam MRI 07/25 confirmed the presence of acute infarct posterior circulation, left AICA and basilar artery distributions MRA without significant flow-limiting stenosis, carotid doppler unremarkable, echocardiogram without obvious PFO allowed for permissive HTN for ~ 24 hours. Now resumed on antiHTN meds also found to have afib which is new, started on hep gtt after discussing with Cardiology as Neurology continue ASA (plavix d/hayley to avoid triple therapy), statin pt however continues to have evolution of CVA, ?need for transfer to tertiary center. WIll discuss with NEurology (2) NSTEMI (non-ST elevated myocardial infarction) Current Visit: Yes Status: Acute Assessment and Plan: Although patient currently denies it, troponin was drawn yesterday due to his shortness of breath and was noted to be elevated at 2.[address] depression and T-wave inversions most pronounced in 1, aVL, and V2 to 6. remains chest pain free, subsequent troponin came down to 1.92 echocardiogram showed preserved EF after discussing with Neuro and cardio, hep gtt was started yesterday plavix d/hayley as above. Will continue asa, bb, and statin (3) Acute respiratory failure with hypoxia Current Visit: Yes Status: Acute Assessment and Plan: persistent hypoxia despite being started on IV diuretics, more rhonchrous breath sounds noted in R lung field given his leukocytosis and low grade temp and an episode of aspiration on the night of 07/26, will start Unasyn obtain sputum culture, strep/legionella ag (4) (HFpEF) heart failure with preserved ejection fraction Current Visit: Yes Status: Acute Assessment and Plan: CXR done overnight showed findings compatible with pulmonary edema was given IV diuretics overnight but without significant improvement in his oxygenation, Cr also slightly increased will hold off on further diuretics (5) Afib Current Visit: Yes Status: Acute Assessment and Plan: noted on tele [employer] 4 for CHF, HTN, CVA bb resumed, started on hep gtt after discussing with Neurology and Cardiology yesterday (6) Hypertension Current Visit: Yes Status: Chronic Assessment and Plan: Meds restarted (7) CKD (chronic kidney disease) Current Visit: No Status: Chronic Assessment and Plan: Cr slightly increased after IV diuretics overnight, monitor off lasix (8) Morbid obesity Current Visit: No Status: Chronic DVT Prophylaxis: hep gtt - Time Spent with Patient Total time spent is greater than 50% in coordination of care (as documented) at patient's floor/unit and/or counseling patient: Greater than 35 minutes Plan of Care Discussed with: nurse Internal Medicine: Result - Labs CBC & Chem 7: 07/28/19 04:54 07/28/19 04:54 Labs: Short CBC 07/28/19 Range/Units 04:54 WBC 14.9 H (4.3-11.1) K/mcL Hgb 18.1 H (12.9-16.9) g/dL Hct 55.1 H (37.5-50.1) % Plt Count 327 (140-400) K/mcL Neutrophils # 10.3 H (1.6-8.9) K/mcL BMP 07/28/19 04:54 Sodium 139 Potassium 3.1 L Chloride 100 Carbon Dioxide 24 BUN 29 H Creatinine 1.52 H Glucose 134 H Calcium 9.4 Urine 07/27/19 07/27/19 Range/Units 10:31 12:15 Urine Color TNP Yellow Urine Clarity TNP Clear Urine pH TNP 6.0 Ur Specific [place] TNP 1.013 Urine Protein TNP Negative Urine Glucose (UA) TNP Normal - ABG Interpretation ABG results: ABG ABG pH 7.41 pH Units (7.32-7.45) 07/27/19 10:46 ABG pCO2 40 mmHg (35-45) 07/27/19 10:46 ABG pO2 80 mmHg (85-104) L 07/27/19 10:46 ABG O2 Saturation 96 % (95-98) 07/27/19 10:46 PT/INR, D-dimer PT 11.2 Seconds (9.4-12.1) 07/27/19 15:45 - Impressions Impressions Head CT 07/27/19 09:56 IMPRESSION: No change subacute left cerebellar infarct. No hemorrhagic conversion. Remote right cerebellar infarct. Remote left basal ganglia and left thalamic lacunar infarcts. Findings were discussed with Dr. Hurley 12:06 p.m. 07/27/2019. D/ / 07/27/2019 12:10:42 Rachid Wren MD / gina Interpreting Provider: Rachid Wren MD Head CT 07/27/19 20:35 IMPRESSION: Stable CT of the brain. No acute intracranial abnormality. Stable multifocal infarcts as outlined above, including the cerebellum, thalami and left basal ganglia. D/ / Yinka Moran MD / Yinka Moran MD Interpreting Provider: Yinka Moran MD Consult Discharge Plan - Plan Referrals: Mauro Serrano [Primary Care Provider] - (4) (HFpEF) heart failure with preserved ejection fraction Qualifiers: Heart failure chronicity: acute on chronic Qualified Code(s): I50.33 - Acute on chronic diastolic (congestive) heart failure (5) Afib Qualifiers: Atrial fibrillation type: paroxysmal Qualified Code(s): I48.0 - Paroxysmal a trial fibrillation (6) Hypertension Qualifiers: Hypertension type: unspecified Qualified Code(s): I10 - Essential (primary) hypertension (7) CKD (chronic kidney disease) Qualifiers: Chronic kidney disease stage: stage 3 (moderate) Qualified Code(s): N18.3 - Chronic kidney disease, stage 3 (moderate)
--- NOTE | 2019-07-28 09:37 | Cardiology Progress Note ---
Date of Encounter: 07/28/19 Time of Encounter: 08:30 Assessment and Plan (1) Cerebellar infarction Current Visit: Yes Status: Acute Per cardiology: -Cerebellar infarction per neurology. -Telemetry strips reviewed with , overnight paroxysmal atrial fibrillation noted. -Management per primary and neurology services. (2) Elevated troponin I level Current Visit: No Status: Acute Per cardiology: -Elevated troponin of unclear significance, negative, 2.56, 1.92. -ECG abnormal in the setting of CVA. -TTE demonstrates preserved LV function. -Patient denies chest pain or discomfort. -Given acute CVA and current clinical status with neurological impairments, recommend ongoing medical therapy for now. Troponin downtrending. -Continue asa, statin, BB. -Discussed and reviewed with , Continue current medical therapy. (3) Afib Current Visit: Yes Status: Acute Per cardiology: -PAF noted this admission, HR cntrolled on BB. -[id number] score 6 (HTN, CVA2, CHF, vascular disease, DM). Recommend penitentiary anticoagulation when able. On heparin drip currently. -Currently NPO due to concerns for aspiration. -Continue heparin drip for now. Recommend [employer] anticoagulation when able to take oral medications. -Continue BB. -Cardiology will sign off, will arrange close outpatient follow up. Qualifiers: Atrial fibrillation type: paroxysmal Qualified Code(s): I48.0 - Paroxysmal atrial fibrillation (4) (HFpEF) heart failure with preserved ejection fraction Current Visit: Yes Status: Acute Per cardiology: -Diastolic CHF, NYHA class IV symptoms. -Chest x-ray with central congestion and interstitial edema. -Started on IV lasix, net negative 4L. Lasix now on hold due to OSCAR. -TTE as above with LVEF preserved. -Agree with holding diuretic today due to OSCAR. Continue to monitor renal function closely. When able, would recommend oral diuretic prior to discharge. -Strict i/os, fluid restriction, daily weights. Qualifiers: Heart failure chronicity: acute on chronic Qualified Code(s): I50.33 - Acute on chronic diastolic (congestive) heart failure Discussion w patient/family: The assessment and plan as outlined above was discussed with the patient who expressed understanding and agreement. All questions were answered. Thank you for involving us in the care of your patient. Please call with any questions. Discussed and reviewed with . Subjective Principal diagnosis: CVA Interval history: Patient awake, expressive aphasia noted. Objective Vital Signs, Last 4 Hours Temp Pulse Resp BP Pulse Ox 07/28/19 08:00 92 07/28/19 07:00 98.1 F 93 18 166/106 95 General: Conversant, Other (Expressive aphasia noted. ) HEENT: Atraumatic, Normocephaly, Mucus Membranes Moist Neck: No JVD, Normal carotid pulses Cardiac: Reg Rate and Rhythm, Normal S1 and S2, No Murmur Lungs: Other (Patient refused respiratory assessment. Cough noted. ) Neuro: Alert and responsive, Other (Oriented to person and place) Abdomen: Soft, Non-Tender Skin: No rashes noted on visualized skin Musculoskeletal: No Chest Wall Tenderness Extremities: No Clubbing, No Cyanosis, No Edema, Normal Pulses Results 07/28/19 04:54 07/28/19 04:54 Lab Results Impressions Head CT 07/27/19 09:56 IMPRESSION: No change subacute left cerebellar infarct. No hemorrhagic conversion. Remote right cerebellar infarct. Remote left basal ganglia and left thalamic lacunar infarcts. Findings were discussed with Dr. Hurley 12:06 p.m. 07/27/2019. D/ / 07/27/2019 12:10:42 Rachid Wren MD / gina Interpreting Provider: Rachid Wren MD Head CT 07/27/19 20:35 IMPRESSION: Stable CT of the brain. No acute intracranial abnormality. Stable multifocal infarcts as outlined above, including the cerebellum, thalami and left basal ganglia. D/ / Yinka Moran MD / Yinka Moran MD Interpreting Provider: Yinka Moran MD Active Medications Acetaminophen (Tylenol) 650 mg PO Q6H PRN PRN Reason: Pain Stop: 01/24/20 23:03 Last Admin: 07/26/19 08:59 Dose: 650 mg Documented by: Amlodipine Besylate (Norvasc) 10 mg PO DAILY [facility]; Protocol Stop: 01/26/20 09:01 Last Admin: 07/27/19 14:29 Dose: Not Given Documented by: Aspirin (Aspirin Ec) 81 mg PO DAILY [facility] Stop: 01/24/20 09:01 Last Admin: 07/27/19 14:30 Dose: Not Given Documented by: Atorvastatin Calcium (Lipitor) 80 mg PO HS [facility] Stop: 01/24/20 21:01 Last Admin: 07/27/19 20:15 Dose: Not Given Documented by: Heparin Sodium (Porcine) (Heparin) 8,800 unit 70 unit/kg (8800 unit) IVP Q6HR PRN PRN Reason: SEE COMMENTS Stop: 01/26/20 15:08 Heparin Sodium (Porcine) (Heparin) 4,400 unit 35 unit/kg (4400 unit) IVP Q6H PRN PRN Reason: SEE COMMENTS Stop: 01/26/20 15:08 Heparin Sodium/Dextrose (Heparin 25,000 Unit/250 Ml D5w) 25,000 unit in 250 mls @ 17.556 mls/hr IVC .[id number] [facility]; Protocol Stop: 01/26/20 15:16 Last Admin: 07/28/19 05:59 Dose: 14 unit/kg/hr, 17.6 mls/hr Documented by: Ampicillin Sodium/Sulbactam Sodium 3,000 mg/ Sodium Chloride 100 mls @ 200 mls/hr IVPB Q6HR [facility] Stop: 01/27/20 08:55 Potassium Chloride 40 meq/ (Lidocaine 2 ml/ Dextrose) 522 mls @ 130.5 mls/hr IVPB ONCE ONE Stop: 07/28/19 13:22 Labetalol HCl (Labetalol) 10 mg IVP Q4H PRN PRN Reason: Hypertension Stop: 01/26/20 10:01 Last Admin: 07/27/19 14:07 Dose: 10 mg Documented by: Lisinopril (Zestril) 20 mg PO DAILY [facility]; Protocol Stop: 01/26/20 09:01 Last Admin: 07/27/19 14:28 Dose: Not Given Documented by: Metoprolol Tartrate (Lopressor) 100 mg PO BID [facility] Stop: 01/26/20 09:01 Last Admin: 07/27/19 20:15 Dose: Not Given Documented by: Nitroglycerin (Nitroglycerin) 0.4 mg SL Q5MIN PRN PRN Reason: Chest Pain Stop: 01/24/20 01:28 Omeprazole (Prilosec) 40 mg PO DAILY@0630 [facility]; Protocol Stop: 01/24/20 06:31 Last Admin: 07/28/19 05:54 Dose: Not Given Documented by: Ondansetron HCl (Zofran) 4 mg IVP Q6H PRN; Protocol PRN Reason: Nausea Stop: 01/24/20 05:37 Last Admin: 07/25/19 05:41 Dose: 4 mg Documented by: Oxycodone/Acetaminophen (Percocet 10/325) 1 each PO Q6H PRN PRN Reason: Pain Stop: 01/24/20 01:28 Laboratory Tests 07/27/19 07/28/19 07/28/19 01:54 04:54 04:54 WBC 14.9 H Hgb 18.1 H Creatinine 1.28 1.52 H - Imaging and Cardiology Chest Xray: report reviewed Echo: report reviewed - EKG Interpretation EKG results cardiology: other (Telemetry reviewed with average HR previous 12 hours noted to be 86, SR. PVCs, PACs noted.) Consult Discharge Plan - Plan Referrals: Mauro Serrano [Primary Care Provider] -
[2019-07-28] MEDS: Metoprolol 100 MG TABLET PO SCH ×2 (09:54→20:25)
[2019-07-28] MEDS: amLODIPine 5 MG TABLET PO SCH (09:54)
[2019-07-28] MEDS: Aspirin Enteric Coated 81 MG Tablet PO SCH (09:54)
[2019-07-28] MEDS: Lisinopril 20 MG TABLET PO SCH (09:54)
[2019-07-28] MEDS: Ampicillin/Sulbactam 3,000 MG in 0.9 % Sodium Chloride Mini Bag 100 ML IVPB SCH ×4 (10:54→22:25)
--- NOTE | 2019-07-28 11:11 | Neurology Progress Note ---
Date of Encounter: 07/28/19 Time of Encounter: 11:08 Assessment and Plan (1) Cerebellar infarction Current Visit: Yes Status: Acute Patient with left cerebellar/pontine infarct, previous history of right cerebellar infarct newly found atrial fibrillation. Has slightly worsening mental status and right sided weakness likely related to regional swelling/edema as expected from a new cerebral infarct. Repeat CT of head however, showed no changes from previous study. Patient is neurological examination demonstrated right-sided hemiparesis with muscle power of 4/5, left hearing loss, severe dysarthria and equal pupil which are consistent with left cerebellar/pontine infarct. Cause of the stroke is likely [place] in nature due to new onset atrial fibrillation. Currently, would recommend continuing anticoagulation therapy for the treatment of atrial fibrillation. Permissive hypertension during acute phase of stroke. Close neurological monitoring. Treatment at this time is largely medical and supportive and prevention of aspiration, DVT. PT and speech therapy and monitoring swallowing status. Subjective Principal diagnosis: CVA Interval history: Patient seen and examined. Patient overnight developed worsening of neurological symptoms characterized by worsening right-sided weakness as well as lethargy and repeat CT of the head however, showed no changes compared to the CT of the head obtained earlier during the day. Patient mental status fluctuated as well as his neurological status. At the time of this interview, the patient is wide awake and follows commands. He does have rather significant dysarthria and right side is 4 out of 5 in muscle power. This appeared to be similar to his neurological examination yesterday. CT of the head reviewed and showed no evidence of cerebral hemorrhage. Patient is a currently on heparin drip for treatment of atrial fibrillation. Objective - Constitutional Vitals: Temp Pulse Resp BP Pulse Ox 98.1 F 92 18 166/106 95 07/28/19 07:00 07/28/19 08:00 07/28/19 07:00 07/28/19 07:00 07/28/19 07:00 - Neurological Exam Sensorimotor examination: Present: intact (reduced pinprick to left face) Motor examination - right side: 4/5: deltoids, biceps, triceps, wrist flexion, wrist extension, composite layup worker, hip flexors, tibialis Anterior, quadriceps, toe extension (EHL), plantarflexion Motor examination - left side: 4/5: deltoids, quadriceps, tibialis Anterior, 5/5: biceps, triceps, wrist flexion, wrist extension, hip flexors, composite layup worker, toe extension (EHL), plantarflexion Sensation intact: Present: intact Posture: Present: other Reflex and gait examination: other (Gait not tested) Mental Status Examination: Present: awake, alert, oriented to person, follows commands appropriately, answers questions appropriately, no agnosia, no aphasia, no aproxia, opens eyes to voice, makes eye contact, follows simple commands Cranial nerve examination: Present: PERRL (left pupil 2mm and right 2.5mm, reactive), EOMI (horiozontal nystagmus, small amplitude when gazing to the left side, large coarse one when gazing to right side), visual freedman intact, corneal reflexes brisk symmetrically, sensory to face intact, mastication intact, no facial asymmetry is present, no dysarthria, hearing is intact symmetrically (left hearing loss noted), soft palate elevates bilaterally upon phonation, gag reflex intact, flexes SCM and trapezius muscles symmetrically with full power, tongue protrudes midline, no atrophy or facial fasiculations present Results - Laboratory Findings CBC and BMP: 07/28/19 04:54 07/28/19 04:54 Abnormal lab findings: Abnormal lab results WBC 14.9 K/mcL (4.3-11.1) H 07/28/19 04:54 RBC 6.37 M/mcL (4.19-5.50) H 07/28/19 04:54 Hgb 18.1 g/dL (12.9-16.9) H 07/28/19 04:54 Hct 55.1 % (37.5-50.1) H 07/28/19 04:54 MPV 9.0 fL (9.4-12.4) L 07/28/19 04:54 Neutrophils # 10.3 K/mcL (1.6-8.9) H 07/28/19 04:54 Monocytes # 1.4 K/mcL (0.0-1.3) H 07/28/19 04:54 Heparin Anti-Xa, Unfract 0.09 IU/mL (0.30-0.70) L 07/27/19 15:45 ABG pO2 80 mmHg (85-104) L 07/27/19 10:46 Potassium 3.1 mEq/L (3.5-5.1) L 07/28/19 04:54 Carbon Dioxide 20 mEq/L (23-29) L 07/24/19 20:59 BUN 29 mg/dL (6-20) H 07/28/19 04:54 Creatinine 1.52 mg/dL (0.70-1.30) H 07/28/19 04:54 Est GFR ( Amer) 57 (> 60) L 07/28/19 04:54 Est GFR (Non-Af Amer) 47 (> 60) L 07/28/19 04:54 Glucose 134 mg/dL (70-105) H 07/28/19 04:54 POC Glucose 128 mg/dL (70-99) H 07/28/19 05:56 Troponin I 1.92 ng/mL (< 0.04) H* 07/26/19 08:39 Urine Blood Small (Negative) H 07/27/19 12:15 Urine Microscopic RBC 5-15 per hpf (0-3) H 07/27/19 12:15 Ur Squamous Epith Cells Moderate per lpf (None-Few) H 07/27/19 12:15 Consult Discharge Plan - Plan Referrals: Mauro Serrano [Primary Care Provider] -
[2019-07-28] MEDS: Artificial Tears SOLN 15 ML BOTTLE LEFT EYE SCH ×3 (13:15→22:27)
[2019-07-28] MEDS ORDERED: Potassium Chloride 40 MEQ, Lidocaine 1% 2 ML in D5% in Water 500 ML IVPB ONE (16:30)
--- NOTE | 2019-07-28 22:29 | Electrocardiograph Report ---
[address] [place], [place] [address] Test Date: 2019-07-26 Pat Name: Freddy Lujan Department: 115 Room: 2N09 Gender: M Precipitation Equipment Tender: : 1960 Requested By: [id number] Order Number: [id number] Reading MD: Yvonne Ireland Measurements Intervals [place] Rate: 67 P: 25 MD: 186 QRS: 52 QRSD: 122 T: 180 QT: 407 QTc: 422 Interpretive Statements SINUS RHYTHM INFERIOR MYOCARDIAL INFARCTION, PROBABLY OLD WITH POSTERIOR EXTENSION MARKED STT-WAVE ABNORMALITY, CONSIDER ANTEROLATERAL ISCHEMIA Electronically Signed On 07-28-2019 22:27:39 EDT by Yvonne Ireland
--- NOTE | 2019-07-28 22:30 | Electrocardiograph Report ---
[address] [place], [place] [address] Test Date: 2019-07-26 Pat Name: Freddy Tai Department: 115 Room: 2N09 Gender: M Clinical Safety Specialist: : 1960 Requested By: [id number] Order Number: [id number] Reading MD: Yvonne Ireland Measurements Intervals [place] Rate: 68 P: 26 MN: 173 QRS: 54 QRSD: 107 T: 184 QT: 414 QTc: 431 Interpretive Statements SINUS RHYTHM INFERIOR MYOCARDIAL INFARCTION, PROBABLY OLD MARKED ST-T WAVE ABNORMALITY, CONSIDER ANTEROLATERAL ISCHEMIA Electronically Signed On 07-28-2019 22:28:13 EDT by Yvonne Ireland
--- NOTE | 2019-07-28 23:01 | Electrocardiograph Report ---
[address] [place], [place] [address] Test Date: 2019-07-27 Pat Name: Freddy Liasky Department: 111 Room: 2N09 Gender: M Paid Search Analyst: [id number] : 1960 Requested By: Renea Guadalupe Order Number: [id number] Reading MD: Yvonne Ireland Measurements Intervals [place] Rate: 87 P: 19 [place]: 174 QRS: 39 QRSD: 107 T: 179 QT: 355 QTc: 399 Interpretive Statements SINUS RHYTHM INFERIOR MYOCARDIAL INFARCTION , OLD MODERATE ST-T WAVE ABNORMALITY, CONSIDER ANTEROLATERAL ISCHEMIA Electronically Signed On 07-28-2019 22:59:40 EDT by Yvonne Ireland
[2019-07-28] MEDS: *HR* Labetalol 20 MG/4 ML SYRINGE IVP PRN (23:40)
[2019-07-29] MEDS: *HR* Labetalol 20 MG/4 ML SYRINGE IVP PRN (04:08)
[2019-07-29] MEDS: Ampicillin/Sulbactam 3,000 MG in 0.9 % Sodium Chloride Mini Bag 100 ML IVPB SCH ×4 (04:14→21:08)
[2019-07-29 05:02] LABS: Basophils # 0.1 K/mcL (0.0-0.2); Basophils % 0.7 %; Eosinophils # 0.4 K/mcL (0.0-0.6); Eosinophils % 3.2 %; Hematocrit 52.9 % (37.5-50.1); Hemoglobin 17.3 g/dL (12.9-16.9); Immature Granulocytes % 0.7 % (0-4); Lymphocytes # 2.1 K/mcL (0.6-4.6); Lymphocytes % 15.7 %; Mean Corpuscular HGB Conc 32.7 g/dL (31.6-35.5); Mean Corpuscular Hemoglobin 28.9 pg (28.0-33.3); Mean Corpuscular Volume 88.3 fL (83.0-100.0); Mean Platelet Volume 8.9 fL (9.4-12.4); Monocytes # 1.4 K/mcL (0.0-1.3); Monocytes % 10.4 %; Neutrophils # 9.3 K/mcL (1.6-8.9); Platelet Count 288 K/mcL (140-400); Red Blood Count 5.99 M/mcL (4.19-5.50); Red Cell Distribution Width 13.1 % (11.5-14.5); Segmented Neutrophils % 69.3 %; White Blood Count 13.4 K/mcL (4.3-11.1)
[2019-07-29 05:19] LABS: BUN/Creatinine Ratio 22 (6-26); Blood Urea Nitrogen 30 mg/dL (6-20); Calcium 9.2 mg/dL (8.6-10.3); Carbon Dioxide 26 mEq/L (23-29); Chloride 104 mEq/L (98-107); Glucose 121 mg/dL (70-105); Magnesium 2.5 mg/dL (1.6-2.6); Osmolality,Calculated 299 (280-300); Potassium 3.7 mEq/L (3.5-5.1); Sodium 141 mEq/L (136-145); eGFR For African Americans > 60 (> 60); eGFR For Non-African Americans 53 (> 60)
--- NOTE | 2019-07-29 08:45 | Neurology Progress Note ---
Date of Encounter: 07/29/19 Time of Encounter: 08:38 Assessment and Plan (1) Cerebellar infarction Current Visit: Yes Status: Acute Seen in f/u for left cerebellar/pontine infarct, most likely embolic source in the setting of new a-fib No new neurological deficits overnight. Continues to have dense right-sided weakness (2/5), dysarthria, left-eye ptosis and left-sided hearing loss Currently on Heparin gtt, ASA, and Stating therapy; plans to bridge to oral anticoagulation when clinically appropriate. Continue permissive HTN in acute phase Will most likely need PT/OT at inpatient rehab, in the meantime c/w PT/OT and speech therapy; consider swallow evaluation given significant dysarthria Continue neurological assessments per protocol, otherwise c/w supportive care, keep HOB greater than 30 degrees to reduce risk for aspiration Subjective Principal diagnosis: CVA Interval history: The patient was seen in follow-up for an acute left cerebellar/pontine infarct. The chart was reviewed, the patient was seen and examined. He continues to have speech difficulty and diffuse right-sided weakness as well as fluctuating symptoms. Clinically, however he continues to be stable without further neurological deficits. I discussed the need for speech therapy, PT/OT and rehabilitation given the extent of his CVA. He denies any further questions or concerns. Objective - Constitutional Vitals: Temp Pulse Resp BP Pulse Ox 98.2 F 76 18 171/87 96 07/29/19 07:05 07/29/19 07:23 07/29/19 07:05 07/29/19 07:05 07/29/19 07:05 Exam: Examination: General Examination: *CONSTITUTIONAL: Alert and oriented x3, drowsy, but no acute distress *GENERAL APPEARANCE OF PATIENT appears healthy and well groomed *EYES: pupils equal, round, reactive to light and accommodation, conjunctiva are injected *CARDIOVASCULAR: no peripheral edema, distal temperature normal, dorsalis pedis pulses normal. Refer to vital signs * MUSCULOSKELETAL: *GAIT AND STATION: Deferred *ASSESSMENT OF MUSCLE STRENGTH IN THE UPPER AND LOWER EXTREMITIES left deltoid, bicep, tricep, cardiology technician strength, hip flexors ,anterior tibialis, dorsoflexion of the foot 4/5; Right deltoid, biep, tricep, cardiology technician strength, hip flexor, anterior tibialis and dorsoflexion of the foot are 2/3 *MUSCLE TONE IN THE UPPER AND LOWER EXTREMITIES normal. No abnormal movements, fasciculations or atrophy identified. Neurological: *ORIENTATION to person, situation, time and place *LANGUAGE AND FUNCTION no significant aphasia, has significant dysarthria *ATTENTION AND CONCENTRATION are normal *LANGUAGE FUNCTION no significant aphasia but has significant dysarthria *FUND OF KNOWLEDGE aware of current events, past history, vocabulary *MENTAL attention span and concentration normal. *CN II optic fundi were normal, no papilledema noted. *CN III,IV, PERRLA extraocular eye movements were full, no nystagmus. Left eye PTOSIS noted *CN V shows normal sensation and jaw opens assymmetrically with decreased facial movement on the left. *CN VII shows normal facial movement symmetrically, upper and lower bilaterally. *CN VIII shows no significant hearing loss on exam but has subtle hearing loss on the left *CN IX-X palate elevated symmetrically *CN XI normal strength in the sternocleidomastoid muscles, symmetrical shoulder shrugging. *CN XII tongue protruded in the midline, with normal strength and movement. *SENSORY EXAMINATION light touch intact but has decreased sensation to left fact to pin prick *REFLEXES: deep tendon reflexes were normal and symmetrical in the left biceps, triceps, brachial radialis, patella and Achilles, the DTRs are hyperref lexic on the right bicep, tricep, brachioradialis, patella and Achilles, no pathological reflexes were noted. *CEREBELLAR TESTING abnormal finger to nose on right, unable to perform d/t profuse weakness *PAIN LEVEL 0/10 - Neurological Exam Sensorimotor examination: Present: intact (reduced pinprick to left face) Motor examination - left side: 4/5: deltoids, quadriceps, tibialis Anterior, 5/5: biceps, triceps, wrist flexion, wrist extension, hip flexors, cardiology technician, toe extension (EHL), plantarflexion Sensation intact: Present: intact Posture: Present: other Reflex and gait examination: other (Gait not tested) Mental Status Examination: Present: awake, alert, oriented to person, follows commands appropriately, answers questions appropriately, no agnosia, no aphasia, no aproxia, opens eyes to voice, makes eye contact, follows simple commands Cranial nerve examination: Present: PERRL (left pupil 2mm and right 2.5mm, reactive), EOMI (horiozontal nystagmus, small amplitude when gazing to the left side, large coarse one when gazing to right side), visual freedman intact, corneal reflexes brisk symmetrically, sensory to face intact, mastication intact, no facial asymmetry is present, no dysarthria, hearing is intact symmetrically (left hearing loss noted), soft palate elevates bilaterally upon phonation, gag reflex intact, flexes SCM and trapezius muscles symmetrically with full power, tongue protrudes midline, no atrophy or facial fasiculations present Results - Laboratory Findings CBC and BMP: 07/29/19 04:49 07/29/19 04:49 Abnormal lab findings: Abnormal lab results WBC 13.4 K/mcL (4.3-11.1) H 07/29/19 04:49 RBC 5.99 M/mcL (4.19-5.50) H 07/29/19 04:49 Hgb 17.3 g/dL (12.9-16.9) H 07/29/19 04:49 Hct 52.9 % (37.5-50.1) H 07/29/19 04:49 MPV 8.9 fL (9.4-12.4) L 07/29/19 04:49 Neutrophils # 9.3 K/mcL (1.6-8.9) H 07/29/19 04:49 Monocytes # 1.4 K/mcL (0.0-1.3) H 07/29/19 04:49 Heparin Anti-Xa, Unfract 0.16 IU/mL (0.30-0.70) L 07/29/19 04:49 ABG pO2 80 mmHg (85-104) L 07/27/19 10:46 Potassium 3.1 mEq/L (3.5-5.1) L 07/28/19 04:54 Carbon Dioxide 20 mEq/L (23-29) L 07/24/19 20:59 BUN 30 mg/dL (6-20) H 07/29/19 04:49 Creatinine 1.38 mg/dL (0.70-1.30) H 07/29/19 04:49 Est GFR ( Amer) 57 (> 60) L 07/28/19 04:54 Est GFR (Non-Af Amer) 53 (> 60) L 07/29/19 04:49 Glucose 121 mg/dL (70-105) H 07/29/19 04:49 POC Glucose 110 mg/dL (70-99) H 07/29/19 05:45 Troponin I 1.92 ng/mL (< 0.04) H* 07/26/19 08:39 Urine Blood Small (Negative) H 07/27/19 12:15 Urine Microscopic RBC 5-15 per hpf (0-3) H 07/27/19 12:15 Ur Squamous Epith Cells Moderate per lpf (None-Few) H 07/27/19 12:15 Consult Discharge Plan - Plan Referrals: Mauro Serrano [Primary Care Provider] -
[2019-07-29] MEDS: Artificial Tears SOLN 15 ML BOTTLE LEFT EYE SCH ×4 (08:59→21:11)
[2019-07-29] MEDS: Lisinopril 20 MG TABLET PO SCH ×2 (09:01→11:48)
[2019-07-29] MEDS: Aspirin Enteric Coated 81 MG Tablet PO SCH ×2 (09:01→11:48)
[2019-07-29] MEDS: amLODIPine 5 MG TABLET PO SCH ×2 (09:01→11:47)
[2019-07-29] MEDS: Heparin 25,000 UNIT/250 ML D5W 25,000 UNIT/250 ML IV.SOLN IVC SCH (10:32)
--- NOTE | 2019-07-29 11:21 | Internal Med Progress Note ---
Hospitalist Progress Note - Encounter Date of Encounter: 07/29/19 Time of Encounter: 08:00 - Subjective Interval History: No acute events overnight, speech appears to be more understandable and coherent today. No chest pain or worsening SOB. - Exam Vitals: Temp Pulse Resp BP Pulse Ox 98.2 F 76 18 171/87 96 07/29/19 07:05 07/29/19 07:23 07/29/19 07:05 07/29/19 07:05 07/29/19 07:05 Exam: General: continues to remain oriented to self, place, and year with improving speech HEENT: horizontal nystagmus bilaterally. PERRL Cardiovascular:Normal S1 & S2, No JVD. Pulse regular. Lungs: improving aeration in L lung field but R lung field with mild rhonchi Abdomen:Soft, non-tender, no rigidity. Neurological: R UE/LE power 3/5 which is slightly better than yesterday - Assessment and Plan (1) Cerebellar infarction Current Visit: Yes Status: Acute Assessment and Plan: Presented with dizziness and nystagmus on exam MRI 07/25 confirmed the presence of acute infarct posterior circulation, left AICA and basilar artery distributions MRA without significant flow-limiting stenosis, carotid doppler unremarkable, echocardiogram without obvious PFO allowed for permissive HTN for ~ 24 hours. Now resumed on antiHTN meds also found to have afib which is new, started on hep gtt after discussing with Cardiology as Neurology. Will switch to PO eliquis if he passes swallow eval pending speech evaluation continue ASA (plavix d/hayley to avoid triple therapy), statin pt appears to have plateaued in terms of his neurological deficits (if not slightly better today). for PT/OT (2) NSTEMI (non-ST elevated myocardial infarction) Current Visit: Yes Status: Acute Assessment and Plan: Although patient currently denies it, troponin was drawn yesterday due to his shortness of breath and was noted to be elevated at 2.[address] depression and T-wave inversions most pronounced in 1, aVL, and V2 to 6. remains chest pain free, subsequent troponin came down to 1.92 echocardiogram showed preserved EF after discussing with Neuro and cardio, hep gtt was started on 07/27 plavix d/hayley as above. Will continue asa, bb, and statin (3) Acute respiratory failure with hypoxia Current Visit: Yes Status: Acute Assessment and Plan: persistent hypoxia despite being started on IV diuretics, more rhonchrous breath sounds noted in R lung field given his leukocytosis and low grade temp and an episode of aspiration on the night of 07/26, Unasyn was started (D2) obtain sputum culture if possible, strep/legionella ag -ve wean O2 as tolerated (4) (HFpEF) heart failure with preserved ejection fraction Current Visit: Yes Status: Acute Assessment and Plan: CXR done overnight showed findings compatible with pulmonary edema was given IV diuretics overnight but without significant improvement in his oxygenation and worsening Cr Cr better today, continue to hold on diuretics and may consider resuming at lower dose tomorrow (5) Afib Current Visit: Yes Status: Acute Assessment and Plan: noted on tele [employer] LabsDSVAS 4 for CHF, HTN, CVA bb resumed, started on hep gtt after discussing with Neurology and Cardiology on 07/27 will transition to PO eliquis tonight (6) Hypertension Current Visit: Yes Status: Chronic Assessment and Plan: Meds restarted, bb switched to coreg (7) CKD (chronic kidney disease) Current Visit: No Status: Chronic Assessment and Plan: Cr stable (8) Morbid obesity Current Visit: No Status: Chronic DVT Prophylaxis: hep gtt, transitioning to Eliquis tonight - Time Spent with Patient Total time spent is greater than 50% in coordination of care (as documented) at patient's floor/unit and/or counseling patient: Greater than 35 minutes Plan of Care Discussed with: nurse (discussed with neurology) Internal Medicine: Result - Labs CBC & Chem 7: 07/29/19 04:49 07/29/19 04:49 Labs: Short CBC 07/29/19 Range/Units 04:49 WBC 13.4 H (4.3-11.1) K/mcL Hgb 17.3 H (12.9-16.9) g/dL Hct 52.9 H (37.5-50.1) % Plt Count 288 (140-400) K/mcL Neutrophils # 9.3 H (1.6-8.9) K/mcL BMP 07/29/19 04:49 Sodium 141 Potassium 3.7 Chloride 104 Carbon Dioxide 26 BUN 30 H Creatinine 1.38 H Glucose 121 H Calcium 9.2 - ABG Interpretation ABG results: ABG ABG pH 7.41 pH Units (7.32-7.45) 07/27/19 10:46 ABG pCO2 40 mmHg (35-45) 07/27/19 10:46 ABG pO2 80 mmHg (85-104) L 07/27/19 10:46 ABG O2 Saturation 96 % (95-98) 07/27/19 10:46 PT/INR, D-dimer PT 11.2 Seconds (9.4-12.1) 07/27/19 15:45 Consult Discharge Plan - Plan Referrals: Mauro Serrano [Primary Care Provider] - (4) (HFpEF) heart failure with preserved ejection fraction Qualifiers: Heart failure chronicity: acute on chronic Qualified Code(s): I50.33 - Acute on chronic diastolic (congestive) heart failure (5) Afib Qualifiers: Atrial fibrillation type: paroxysmal Qualified Code(s): I48.0 - Paroxysmal atrial fibrillation (6) Hypertension Qualifiers: Hypertension type: unspecified Qualified Code(s): I10 - Essential (primary) hypertension (7) CKD (chronic kidney disease) Qualifiers: Chronic kidney disease stage: stage 3 (moderate) Qualified Code(s): N18.3 - Chronic kidney disease, stage 3 (moderate)
[2019-07-29] MEDS: Apixaban 5 MG TABLET PO SCH (17:14)
[2019-07-30] MEDS: Ampicillin/Sulbactam 3,000 MG in 0.9 % Sodium Chloride Mini Bag 100 ML IVPB SCH ×4 (03:17→23:34)
[2019-07-30 03:59] LABS: Basophils # 0.1 K/mcL (0.0-0.2); Basophils % 0.6 %; Eosinophils # 0.5 K/mcL (0.0-0.6); Eosinophils % 3.4 %; Hematocrit 49.4 % (37.5-50.1); Hemoglobin 16.1 g/dL (12.9-16.9); Immature Granulocytes % 0.9 % (0-4); Lymphocytes # 2.4 K/mcL (0.6-4.6); Mean Corpuscular HGB Conc 32.6 g/dL (31.6-35.5); Mean Corpuscular Hemoglobin 28.8 pg (28.0-33.3); Mean Corpuscular Volume 88.4 fL (83.0-100.0); Mean Platelet Volume 9.4 fL (9.4-12.4); Monocytes # 1.5 K/mcL (0.0-1.3); Monocytes % 10.8 %; Neutrophils # 9.5 K/mcL (1.6-8.9); Platelet Count 307 K/mcL (140-400); Red Blood Count 5.59 M/mcL (4.19-5.50); Red Cell Distribution Width 13.2 % (11.5-14.5); Segmented Neutrophils % 67.3 %; White Blood Count 14.1 K/mcL (4.3-11.1)
[2019-07-30 04:21] LABS: Calcium 9.4 mg/dL (8.6-10.3); Magnesium 2.5 mg/dL (1.6-2.6); Potassium 3.6 mEq/L (3.5-5.1)
[2019-07-30] MEDS: Apixaban 5 MG TABLET PO SCH ×2 (05:30→18:29)
[2019-07-30] MEDS: Aspirin Enteric Coated 81 MG Tablet PO SCH (07:13)
[2019-07-30] MEDS: amLODIPine 5 MG TABLET PO SCH (07:14)
[2019-07-30] MEDS: Lisinopril 20 MG TABLET PO SCH (07:14)
[2019-07-30] MEDS: Artificial Tears SOLN 15 ML BOTTLE LEFT EYE SCH ×4 (07:14→20:36)
--- NOTE | 2019-07-30 09:03 | Internal Med Progress Note ---
Hospitalist Progress Note - Encounter Date of Encounter: 07/30/19 Time of Encounter: 07:45 - Subjective Interval History: Continues to have waxing and waning neurological deficits. Denies any headache, chest pain, palpitation, or N/V. Tolerated pureed diet well yesterday after passing speech eval. No fever overnight. - Exam Vitals: Temp Pulse Resp BP Pulse Ox 98.7 F 75 17 136/88 93 07/30/19 07:55 07/30/19 07:55 07/30/19 07:55 07/30/19 07:55 07/30/19 07:55 Exam: General: continues to remain oriented to self, place, and year, unchanged dysarthria HEENT: PERRL Cardiovascular:Normal S1 & S2, No JVD. Pulse regular. Lungs: improving aeration in L lung field but R lung field with mild rhonchi Abdomen:Soft, non-tender, no rigidity. Neurological: R UE/LE power 2/5 - Assessment and Plan (1) Cerebellar infarction Current Visit: Yes Status: Acute Assessment and Plan: Presented with dizziness and nystagmus on exam MRI 07/25 confirmed the presence of acute infarct posterior circulation, left AICA and basilar artery distributions MRA without significant flow-limiting stenosis, carotid doppler unremarkable, echocardiogram without obvious PFO allowed for permissive HTN for ~ 24 hours. Now resumed on antiHTN meds also found to have afib which is new, started on hep gtt after discussing with Cardiology as Neurology -> transitioned to PO eliquis on 07/29 after passing swallow eval continue ASA (plavix d/hayley to avoid triple therapy), statin Neurology input appreciated. Rather stable neurological deficits, some of which may be permanent. For PT/OT and work with SW for placement (2) NSTEMI (non-ST elevated myocardial infarction) Current Visit: Yes Status: Acute Assessment and Plan: Although patient currently denies it, troponin was drawn yesterday due to his shortness of breath and was noted to be elevated at 2.[address] depression and T-wave inversions most pronounced in 1, aVL, and V2 to 6. remains chest pain free, subsequent troponin came down to 1.92 echocardiogram showed preserved EF after discussing with Neuro and cardio, pt was on hep gtt for 2 days plavix d/hayley as above. Will continue asa, bb, and statin No ischemic workup planned given acute CVA (3) Acute respiratory failure with hypoxia Current Visit: Yes Status: Acute Assessment and Plan: persistent hypoxia despite being started on IV diuretics, more rhonchrous breath sounds noted in R lung field given his leukocytosis and low grade temp and an episode of aspiration on the night of 07/26, Unasyn was started with working diagnosis of aspiration PNA (D3) obtain sputum culture if possible, strep/legionella ag -ve wean O2 as tolerated (4) (HFpEF) heart failure with preserved ejection fraction Current Visit: Yes Status: Acute Assessment and Plan: CXR done overnight showed findings compatible with pulmonary edema was given IV diuretics overnight but without significant improvement in his oxygenation and worsening Cr Cr stable today, will continue to hold on diuretics for today and monitor Cr (5) Afib Current Visit: Yes Status: Acute Assessment and Plan: noted on tele [employer] 4 for CHF, HTN, CVA bb resumed, started on hep gtt after discussing with Neurology and Cardiology on 07/27 -> transitioned to Eliquis on 07/29 (6) Hypertension Current Visit: Yes Status: Chronic Assessment and Plan: Meds restarted, bb switched to coreg (7) CKD (chronic kidney disease) Current Visit: No Status: Chronic Assessment and Plan: Cr stable (8) Morbid obesity Current Visit: No Status: Chronic DVT Prophylaxis: Eliquis - Time Spent with Patient Total time spent is greater than 50% in coordination of care (as documented) at patient's floor/unit and/or counseling patient: 25 - 35 minutes Plan of Care Discussed with: patient Internal Medicine: Result - Labs CBC & Chem 7: 07/30/19 01:40 07/30/19 01:40 Labs: Short CBC 07/30/19 Range/Units 01:40 WBC 14.1 H (4.3-11.1) K/mcL Hgb 16.1 (12.9-16.9) g/dL Hct 49.4 (37.5-50.1) % Plt Count 307 (140-400) K/mcL Neutrophils # 9.5 H (1.6-8.9) K/mcL BMP 07/30/19 01:40 Sodium 142 Potassium 3.6 Chloride 104 Carbon Dioxide 26 BUN 32 H Creatinine 1.47 H Glucose 95 Calcium 9.4 - ABG Interpretation ABG results: ABG ABG pH 7.41 pH Units (7.32-7.45) 07/27/19 10:46 ABG pCO2 40 mmHg (35-45) 07/27/19 10:46 ABG pO2 80 mmHg (85-104) L 07/27/19 10:46 ABG O2 Saturation 96 % (95-98) 07/27/19 10:46 PT/INR, D-dimer PT 11.2 Seconds (9.4-12.1) 07/27/19 15:45 Consult Discharge Plan - Plan Referrals: Mauro Serrano [Primary Care Provider] - (4) (HFpEF) heart failure with preserved ejection fraction Qualifiers: Heart failure chronicity: acute on chronic Qualified Code(s): I50.33 - Acute on chronic diastolic (congestive) heart failure (5) Afib Qualifiers: Atrial fibrillation type: paroxysmal Qualified Code(s): I48.0 - Paroxysmal atrial fibrillation (6) Hypertension Qualifiers: Hypertension type: unspecified Qualified Code(s): I10 - Essential (primary) hypertension (7) CKD (chronic kidney disease) Qualifiers: Chronic kidney disease stage: stage 3 (moderate) Qualified Code(s): N18.3 - Chronic kidney disease, stage 3 (moderate)
[2019-07-30 09:50] LABS: Bilirubin,Urine Moderate (Negative); Blood,Urine Large (Negative); Clarity,Urine Turbid (Clear); Color,Urine Other (Yellow); Glucose,Urine (UA) Normal (Normal); Ketones,Urine Trace mg/dL (Negative); Leukocyte Esterase,Urine Small (Negative); Nitrite,Urine Negative (Negative); Protein,Urine 100 mg/dL (Neg-Trace); Specific Gravity,Urine > 1.030 (1.010-1.025); Urobilinogen,Urine Normal (Normal)
[2019-07-30 09:53] LABS: Bacteria,Urine None Seen per hpf (None-Few); Hyaline Casts,Urine None Seen per lpf (None-Few); RBC,Urine TNTC per hpf (0-3); Squamous Epithelial Cell,Urine Many per lpf (None-Few)
--- NOTE | 2019-07-30 10:08 | Neurology Progress Note ---
<Patrice Arriaga J - Last Filed: 07/30/19 10:05> Date of Encounter: 07/30/19 Time of Encounter: 10:05 Assessment and Plan (1) Cerebellar infarction Current Visit: Yes Status: Acute Seen in f/u for left cerebellar/pontine infarct He continues to have cross paralysis with flaccidity of the RUE, and RLE and left facial asymmetry; Lt eye ptosis and left pinpoint pupil and dysarthria persist as well; no new deficits on exam Source is embolid with new dx of a.fib; heparin has been d/c'd and Eliquis started Continue Eliquis, ASA, Statin Recommending PT/OT, and Speech therapy; He will need to d/c to inpatient rehab given severe deficits In the meantime c/w medical and supportive care, maintain HOB >30 degrees and c/w aspiration precautions Neurology will follow peripherally; please call should any needs or questions arise. Thank you for consulting [facility] Subjective Principal diagnosis: CVA Interval history: The patient was seen in follow-up for an acute left cerebellar/pontine infarct. Today his RUE, and RLE are flaccid, and he continues to have severe dysarthria and dysphagia as well as left eye ptosis. Objective - Constitutional Vitals: Temp Pulse Resp BP Pulse Ox 98.7 F 75 17 136/88 93 07/30/19 07:55 07/30/19 07:55 07/30/19 07:55 07/30/19 07:55 07/30/19 07:55 Exam: Examination: General Examination: *CONSTITUTIONAL: Alert and oriented x3, drowsy, but no acute distress *GENERAL APPEARANCE OF PATIENT appears healthy and well groomed *EYES: Pupillary asymmetry, left pupil smaller than right but reactive to light b/l, conjunctiva remains injected *CARDIOVASCULAR: no peripheral edema, distal temperature normal, dorsalis pedis pulses normal. 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 No abnormal mov ements, fasciculations or atrophy identified. Neurological: *ORIENTATION to person, situation, time and place *LANGUAGE AND FUNCTION no significant aphasia, has significant dysarthria *ATTENTION AND CONCENTRATION are normal *LANGUAGE FUNCTION no significant aphasia but has significant dysarthria *FUND OF KNOWLEDGE aware of current events, past history, vocabulary *MENTAL attention span and concentration normal. *CN II optic fundi were normal, no papilledema noted. *CN III,IV, pupillary asymmetry, left pupil smaller than right but reactive to light, extraocular eye movements were full and intacy, no nystagmus. Left eye ptosis *CN V shows normal sensation and jaw opens assymmetrically with decreased facial movement on the left. *CN VII shows normal facial movement symmetrically, upper and lower bilaterally. *CN VIII shows no significant hearing loss on exam but has subtle hearing loss on the left *CN IX-X palate elevated symmetrically *CN XI normal strength in the sternocleidomastoid muscles, symmetrical shoulder shrugging. *CN XII tongue protruded in the midline, with normal strength and movement. *SENSORY EXAMINATION light touch intact but has decreased sensation to left face to pin prick *REFLEXES: deep tendon reflexes were normal and symmetrical in the left biceps, triceps, brachial radialis, patella and Achilles, the DTRs are hyperreflexic on the right bicep, tricep, brachioradialis, patella and Achilles, no pathological reflexes were noted. *CEREBELLAR TESTING abnormal finger to nose on right, unable to perform d/t profuse weakness *PAIN LEVEL 0/10 - Neurological Exam Sensorimotor examination: Present: intact (reduced pinprick to left face) Motor examination - left side: 4/5: deltoids, quadriceps, tibialis Anterior, 5/5: biceps, triceps, wrist flexion, wrist extension, hip flexors, aircraft engine assembler, toe extension (EHL), plantarflexion Sensation intact: Present: intact Posture: Present: other Reflex and gait examination: other (Gait not tested) Mental Status Examination: Present: awake, alert, oriented to person, follows commands appropriately, answers questions appropriately, no agnosia, no aphasia, no aproxia, opens eyes to voice, makes eye contact, follows simple commands Cranial nerve examination: Present: PERRL (left pupil 2mm and right 2.5mm, brendan ctive), EOMI (horiozontal nystagmus, small amplitude when gazing to the left side, large coarse one when gazing to right side), visual freedman intact, corneal reflexes brisk symmetrically, sensory to face intact, mastication intact, no facial asymmetry is present, no dysarthria, hearing is intact symmetrically (left hearing loss noted), soft palate elevates bilaterally upon phonation, gag reflex intact, flexes SCM and trapezius muscles symmetrically with full power, tongue protrudes midline, no atrophy or facial fasiculations present Results - Laboratory Findings CBC and BMP: 07/30/19 01:40 07/30/19 01:40 Abnormal lab findings: Abnormal lab results WBC 14.1 K/mcL (4.3-11.1) H 07/30/19 01:40 RBC 5.59 M/mcL (4.19-5.50) H 07/30/19 01:40 Hgb 17.3 g/dL (12.9-16.9) H 07/29/19 04:49 Hct 52.9 % (37.5-50.1) H 07/29/19 04:49 MPV 8.9 fL (9.4-12.4) L 07/29/19 04:49 Neutrophils # 9.5 K/mcL (1.6-8.9) H 07/30/19 01:40 Monocytes # 1.5 K/mcL (0.0-1.3) H 07/30/19 01:40 Heparin Anti-Xa, Unfract 1.51 IU/mL (0.30-0.70) H* 07/29/19 19:30 ABG pO2 80 mmHg (85-104) L 07/27/19 10:46 Potassium 3.1 mEq/L (3.5-5.1) L 07/28/19 04:54 Carbon Dioxide 20 mEq/L (23-29) L 07/24/19 20:59 BUN 32 mg/dL (6-20) H 07/30/19 01:40 Creatinine 1.47 mg/dL (0.70-1.30) H 07/30/19 01:40 Est GFR ( Amer) 59 (> 60) L 07/30/19 01:40 Est GFR (Non-Af Amer) 49 (> 60) L 07/30/19 01:40 Glucose 121 mg/dL (70-105) H 07/29/19 04:49 POC Glucose 110 mg/dL (70-99) H 07/29/19 05:45 Calculated Osmolality 301 (280-300) H 07/30/19 01:40 Troponin I 1.92 ng/mL (< 0.04) H* 07/26/19 08:39 Urine Color Other (Yellow) A 07/30/19 09:30 Urine Clarity Turbid (Clear) A 07/30/19 09:30 Ur Specific [place] > 1.030 (1.010-1.025) H 07/30/19 09:30 Urine Protein 100 mg/dL (Neg-Trace) H 07/30/19 09:30 Urine Ketones Trace mg/dL (Negative) H 07/30/19 09:30 Urine Blood Large (Negative) H 07/30/19 09:30 Urine Bilirubin Moderate (Negative) H 07/30/19 09:30 Ur Leukocyte Esterase Small (Negative) H 07/30/19 09:30 Urine Microscopic RBC TNTC per hpf (0-3) H 07/30/19 09:30 Urine Microscopic WBC 5-15 per hpf (0-3) H 07/30/19 09:30 Ur Squamous Epith Cells Many per lpf (None-Few) H 07/30/19 09:30 Ur Culture Indicated? YES (NO) A 07/30/19 09:30 Consult Discharge Plan - Plan Referrals: Mauro Serrano [Primary Care Provider] - <Shonna Hutchins - Last Filed: 07/30/19 12:24> Date of Encounter: 07/30/19 Assessment and Plan (1) Cerebellar infarction Current Visit: Yes Status: Acute Objective - Constitutional Vitals: Temp Pulse Resp BP Pulse Ox 97.9 F 63 12 123/85 95 07/30/19 10:33 07/30/19 11:28 07/30/19 11:28 07/30/19 10:33 07/30/19 10:33 Results - Laboratory Findings CBC and BMP: 07/30/19 10:49 07/30/19 01:40 Abnormal lab findings: Abnormal lab results WBC 14.1 K/mcL (4.3-11.1) H 07/30/19 01:40 RBC 5.59 M/mcL (4.19-5.50) H 07/30/19 01:40 Hgb 17.3 g/dL (12.9-16.9) H 07/29/19 04:49 Hct 52.9 % (37.5-50.1) H 07/29/19 04:49 MPV 8.9 fL (9.4-12.4) L 07/29/19 04:49 Neutrophils # 9.5 K/mcL (1.6-8.9) H 07/30/19 01:40 Monocytes # 1.5 K/mcL (0.0-1.3) H 07/30/19 01:40 Heparin Anti-Xa, Unfract 1.51 IU/mL (0.30-0.70) H* 07/29/19 19:30 ABG pO2 80 mmHg (85-104) L 07/27/19 10:46 Potassium 3.1 mEq/L (3.5-5.1) L 07/28/19 04:54 Carbon Dioxide 20 mEq/L (23-29) L 07/24/19 20:59 BUN 32 mg/dL (6-20) H 07/30/19 01:40 Creatinine 1.47 mg/dL (0.70-1.30) H 07/30/19 01:40 Est GFR ( Amer) 59 (> 60) L 07/30/19 01:40 Est GFR (Non-Af Amer) 49 (> 60) L 07/30/19 01:40 Glucose 121 mg/dL (70-105) H 07/29/19 04:49 POC Glucose 110 mg/dL (70-99) H 07/29/19 05:45 Calculated Osmolality 301 (280-300) H 07/30/19 01:40 Troponin I 1.92 ng/mL (< 0.04) H* 07/26/19 08:39 Urine Color Other (Yellow) A 07/30/19 09:30 Urine Clarity Turbid (Clear) A 07/30/19 09:30 Ur Specific [place] > 1.030 (1.010-1.025) H 07/30/19 09:30 Urine Protein 100 mg/dL (Neg-Trace) H 07/30/19 09:30 Urine Ketones Trace mg/dL (Negative) H 07/30/19 09:30 Urine Blood Large (Negative) H 07/30/19 09:30 Urine Bilirubin Moderate (Negative) H 07/30/19 09:30 Ur Leukocyte Esterase Small (Negative) H 07/30/19 09:30 Urine Microscopic RBC TNTC per hpf (0-3) H 07/30/19 09:30 Urine Microscopic WBC 5-15 per hpf (0-3) H 07/30/19 09:30 Ur Squamous Epith Cells Many per lpf (None-Few) H 07/30/19 09:30 Ur Culture Indicated? YES (NO) A 07/30/19 09:30
[2019-07-30 11:13] LABS: Hematocrit 49.4 % (37.5-50.1); Hemoglobin 16.3 g/dL (12.9-16.9)
[2019-07-30] MEDS ORDERED: Acetaminophen 325 MG TABLET PO PRN (14:05)
[2019-07-30] MEDS ORDERED: *HR* OxyCODONE/APAP 10/325 TABLET PO PRN (14:05)
[2019-07-31] MEDS: Ampicillin/Sulbactam 3,000 MG in 0.9 % Sodium Chloride Mini Bag 100 ML IVPB SCH ×4 (05:25→23:58)
[2019-07-31] MEDS: Apixaban 5 MG TABLET PO SCH ×2 (05:25→17:05)
[2019-07-31 05:47] LABS: Basophils # 0.1 K/mcL (0.0-0.2); Basophils % 0.6 %; Eosinophils # 0.6 K/mcL (0.0-0.6); Eosinophils % 4.9 %; Hematocrit 49.4 % (37.5-50.1); Hemoglobin 16.1 g/dL (12.9-16.9); Immature Granulocytes % 0.9 % (0-4); Lymphocytes # 2.3 K/mcL (0.6-4.6); Lymphocytes % 20.6 %; Mean Corpuscular HGB Conc 32.6 g/dL (31.6-35.5); Mean Corpuscular Hemoglobin 28.9 pg (28.0-33.3); Mean Corpuscular Volume 88.7 fL (83.0-100.0); Mean Platelet Volume 9.2 fL (9.4-12.4); Monocytes # 1.1 K/mcL (0.0-1.3); Monocytes % 10.2 %; Platelet Count 289 K/mcL (140-400); Red Blood Count 5.57 M/mcL (4.19-5.50); Red Cell Distribution Width 13.2 % (11.5-14.5); Segmented Neutrophils % 62.8 %; White Blood Count 11.1 K/mcL (4.3-11.1)
[2019-07-31 06:10] LABS: Calcium 9.1 mg/dL (8.6-10.3); Potassium 3.5 mEq/L (3.5-5.1)
[2019-07-31] MEDS: Aspirin Enteric Coated 81 MG Tablet PO SCH (07:58)
[2019-07-31] MEDS: Lisinopril 20 MG TABLET PO SCH (07:59)
[2019-07-31] MEDS: amLODIPine 5 MG TABLET PO SCH (07:59)
[2019-07-31] MEDS: Artificial Tears SOLN 15 ML BOTTLE LEFT EYE SCH ×4 (08:07→20:43)
--- NOTE | 2019-07-31 09:48 | Internal Med Progress Note ---
Hospitalist Progress Note - Encounter Date of Encounter: 07/31/19 Time of Encounter: 08:00 - Subjective Interval History: Dysarthria appears to be slightly better today. Continues to have significant R UE and LE weakness. Able to tolerate speech therapy well - Exam Vitals: Temp Pulse Resp BP Pulse Ox 97.6 F 61 18 116/73 94 07/31/19 08:00 07/31/19 08:00 07/31/19 08:00 07/31/19 08:00 07/31/19 07:07 Exam: General: continues to remain oriented to self, place, and year, unchanged dysarthria HEENT: PERRL Cardiovascular:Normal S1 & S2, No JVD. Pulse regular. Lungs: Mostly clear to auscultation Abdomen:Soft, non-tender, no rigidity. Neurological: R UE/LE power 2/5 - Assessment and Plan (1) Cerebellar infarction Current Visit: Yes Status: Acute Assessment and Plan: Presented with dizziness and nystagmus on exam MRI 07/25 confirmed the presence of acute infarct posterior circulation, left AICA and basilar artery distributions MRA without significant flow-limiting stenosis, carotid doppler unremarkable, echocardiogram without obvious PFO allowed for permissive HTN for ~ 24 hours. Now resumed on antiHTN meds also found to have afib which is new, started on hep gtt after discussing with Cardiology as Neurology -> transitioned to PO eliquis on 07/29 after passing swallow eval continue ASA (plavix d/hayley to avoid triple therapy), statin Neurology input appreciated. Rather stable neurological deficits, some of which may be permanent. For PT/OT and work with SW for placement (2) NSTEMI (non-ST elevated myocardial infarction) Current Visit: Yes Status: Acute Assessment and Plan: Although patient currently denies it, troponin was drawn yesterday due to his shortness of breath and was noted to be elevated at 2.[address] depression and T-wave inversions most pronounced in 1, aVL, and V2 to 6. remains chest pain free, subsequent troponin came down to 1.92 echocardiogram showed preserved EF after discussing with Neuro and cardio, pt was on hep gtt for 2 days plavix d/hayley as above. Will continue asa, bb, and statin No ischemic workup planned given acute CVA (3) Acute respiratory failure with hypoxia Current Visit: Yes Status: Acute Assessment and Plan: persistent hypoxia despite being started on IV diuretics, more rhonchrous breath sounds noted in R lung field given his leukocytosis and low grade temp and an episode of aspiration on the night of 07/26, Unasyn was started with working diagnosis of aspiration PNA (D4) WBC normal today obtain sputum culture if possible, strep/legionella ag -ve wean O2 as tolerated (4) (HFpEF) heart failure with preserved ejection fraction Current Visit: Yes Status: Chronic Assessment and Plan: CXR done overnight showed findings compatible with pulmonary edema was given IV diuretics initially but without significant improvement in his oxygenation and worsening Cr Cr stable today, will continue to hold on diuretics for today and monitor Cr (5) Afib Current Visit: Yes Status: Acute Assessment and Plan: noted on tele [email or web address] 4 for CHF, HTN, CVA bb resumed, started on hep gtt after discussing with Neurology and Cardiology on 07/27 -> transitioned to Eliquis on 07/29 (6) Hypertension Current Visit: Yes Status: Chronic Assessment and Plan: Meds restarted, bb switched to coreg (7) CKD (chronic kidney disease) Current Visit: No Status: Chronic Assessment and Plan: Cr stable (8) Morbid obesity Current Visit: No Status: Chronic DVT Prophylaxis: Eliquis - Time Spent with Patient Total time spent is greater than 50% in coordination of care (as documented) at patient's floor/unit and/or counseling patient: 25 - 35 minutes Plan of Care Discussed with: patient Internal Medicine: Result - Labs CBC & Chem 7: 07/31/19 04:49 07/31/19 04:49 Labs: Short CBC 07/30/19 07/31/19 Range/Units 10:49 04:49 WBC 11.1 (4.3-11.1) K/mcL Hgb 16.3 16.1 (12.9-16.9) g/dL Hct 49.4 49.4 (37.5-50.1) % Plt Count 289 (140-400) K/mcL Neutrophils # 7.0 (1.6-8.9) K/mcL BMP 07/31/19 04:49 Sodium 146 H Potassium 3.5 Chloride 103 Carbon Dioxide 25 BUN 37 H Creatinine 1.46 H Glucose 97 Calcium 9.1 Urine 07/30/19 Range/Units 09:30 Urine Color Other A (Yellow) Urine Clarity Turbid A (Clear) Urine pH 5.0 (5.0-8.0) pH Units Ur Specific [place] > 1.030 H (1.010-1.025) Urine Protein 100 H (Neg-Trace) mg/dL Urine Glucose (UA) Normal (Normal) mg/dL - ABG Interpretation ABG results: ABG ABG pH 7.41 pH Units (7.32-7.45) 07/27/19 10:46 ABG pCO2 40 mmHg (35-45) 07/27/19 10:46 ABG pO2 80 mmHg (85-104) L 07/27/19 10:46 ABG O2 Saturation 96 % (95-98) 07/27/19 10:46 PT/INR, D-dimer PT 11.2 Seconds (9.4-12.1) 07/27/19 15:45 Consult Discharge Plan - Plan Referrals: Mauro Serrano [Primary Care Provider] - (4) (HFpEF) heart failure with preserved ejection fraction Qualifiers: Heart failure chronicity: chronic Qualified Code(s): I50.32 - Chronic d iastolic (congestive) heart failure (5) Afib Qualifiers: Atrial fibrillation type: paroxysmal Qualified Code(s): I48.0 - Paroxysmal atrial fibrillation (6) Hypertension Qualifiers: Hypertension type: unspecified Qualified Code(s): I10 - Essential (primary) hypertension (7) CKD (chronic kidney disease) Qualifiers: Chronic kidney disease stage: stage 3 (moderate) Qualified Code(s): N18.3 - Chronic kidney disease, stage 3 (moderate)
[2019-07-31] MEDS ORDERED: 0.9 % Sodium Chloride Mini Bag 100 ML ONE (16:59)
[2019-08-01 05:40] LABS: Basophils # 0.1 K/mcL (0.0-0.2); Basophils % 0.6 %; Eosinophils # 0.4 K/mcL (0.0-0.6); Eosinophils % 3.9 %; Hematocrit 49.2 % (37.5-50.1); Hemoglobin 15.7 g/dL (12.9-16.9); Immature Granulocytes % 0.8 % (0-4); Lymphocytes # 2.3 K/mcL (0.6-4.6); Lymphocytes % 20.7 %; Mean Corpuscular HGB Conc 31.9 g/dL (31.6-35.5); Mean Corpuscular Hemoglobin 28.4 pg (28.0-33.3); Mean Platelet Volume 9.3 fL (9.4-12.4); Monocytes # 1.1 K/mcL (0.0-1.3); Monocytes % 9.8 %; Neutrophils # 7.2 K/mcL (1.6-8.9); Platelet Count 279 K/mcL (140-400); Red Blood Count 5.53 M/mcL (4.19-5.50); Red Cell Distribution Width 12.9 % (11.5-14.5); Segmented Neutrophils % 64.2 %; White Blood Count 11.3 K/mcL (4.3-11.1)
[2019-08-01] MEDS: Apixaban 5 MG TABLET PO SCH (05:47)
[2019-08-01] MEDS: Ampicillin/Sulbactam 3,000 MG in 0.9 % Sodium Chloride Mini Bag 100 ML IVPB SCH (05:48)
[2019-08-01 06:04] LABS: BUN/Creatinine Ratio 24 (6-26); Blood Urea Nitrogen 32 mg/dL (6-20); Calcium 9.2 mg/dL (8.6-10.3); Carbon Dioxide 26 mEq/L (23-29); Chloride 107 mEq/L (98-107); Glucose 97 mg/dL (70-105); Osmolality,Calculated 303 (280-300); Potassium 3.6 mEq/L (3.5-5.1); Sodium 143 mEq/L (136-145); eGFR For African Americans > 60 (> 60); eGFR For Non-African Americans 56 (> 60)
[2019-08-01] MEDS: Artificial Tears SOLN 15 ML BOTTLE LEFT EYE SCH ×2 (08:00→12:28)
[2019-08-01] MEDS: amLODIPine 5 MG TABLET PO SCH (08:01)
[2019-08-01] MEDS: Lisinopril 20 MG TABLET PO SCH (08:01)
[2019-08-01] MEDS: Aspirin Enteric Coated 81 MG Tablet PO SCH (08:01)
--- NOTE | 2019-08-01 09:57 | Discharge Summary ---
- NOTES TO OUTPATIENT PROVIDER Notes to Outpatient Provider: Follow-up with neurology and cardiology as outpatient Orders not resulted at time of discharge: Pending orders 07/28/19 08:54 Culture,Sputum with Gram Stain [RM] Routine Date of Encounter: 08/01/19 Time of Encounter: 09:00 - Discharge Diagnosis (1) Cerebellar infarction Priority: Primary Status: Acute (2) NSTEMI (non-ST elevated myocardial infarction) Priority: Secondary Status: Acute (3) Acute respiratory failure with hypoxia Priority: Secondary Status: Acute (4) (HFpEF) heart failure with preserved ejection fraction Priority: Secondary Status: Chronic Qualifiers: Heart failure chronicity: chronic Qualified Code(s): I50.32 - Chronic gregoria stolic (congestive) heart failure (5) Afib Priority: Secondary Status: Acute Qualifiers: Atrial fibrillation type: paroxysmal Qualified Code(s): I48.0 - Paroxysmal atrial fibrillation (6) Hypertension Priority: Secondary Status: Chronic Qualifiers: Hypertension type: unspecified Qualified Code(s): I10 - Essential (primary) hypertension (7) CKD (chronic kidney disease) Priority: Secondary Status: Chronic Qualifiers: Chronic kidney disease stage: stage 3 (moderate) Qualified Code(s): N18.3 - Chronic kidney disease, stage 3 (moderate) (8) Morbid obesity Priority: Secondary Status: Chronic Hospital course: Mr. Lujan is a 58 year old male with history of CAD status post CABG and PCI, cerebellar infarct, hypertension, CKD, who was admitted due to dizziness and was found to have left cerebellar and pontine infarct. Unfortunately, despite allowing for permissive hypertension and starting on anticoagulation for newly diagnosed atrial fibrillation, his neurological deficits continue to evolve and developed flaccid paralysis on the right UE/LE. Multiple CT head were done which did not show any hemorrhagic transformation. No flow-limiting stenosis noted on MRA and carotid doppler did not show any significant ICA stenosis. His hospital course was complicated by elevated troponin that peaked at 2.[address] depression and T-wave inversion in 1, avL, and V2-6. Cardiology was consulted and echocardiogram done showed intact EF. He was on anticoagulation as above for new afib and the decision was made to follow up as outpatient for the consideration of ischemic workup due to recent CVA. He also developed aspiration pneumonia during his stay and had been on IV unasyn for 5 days. He will complete 2 more days of PO Augmentin at [facility] and continue to follow with PT/OT/speech for ongoing rehab. Discharge discussed with: patient, nurse, social work, case management, qa consultant - Time Spent with Patient Total time spent providing and/or coordinating discharge services: 37 mins - Discharge Medications Prescriptions: New Meclizine [Antivert] 25 mg PO TID PRN #30 tablet PRN Reason: Dizziness Artificial Tears SOLN [Akwa Tears] 1 drop LEFT EYE QID #1 bottle Carvedilol [Coreg] 25 mg PO BIDWM #60 tablet Apixaban [Eliquis] 5 mg PO BID #60 tab Continued Lisinopril [Zestril] 20 mg PO DAILY Aspirin [Lo-Dose Aspirin EC] 81 mg PO DAILY Amlodipine Besylate 10 mg PO DAILY Atorvastatin [Lipitor] 80 mg PO HS #60 tablet Nitroglycerin [Nitrostat] 0.4 mg SL Q5MIN PRN PRN Reason: Chest Pain Omeprazole [PriLOSEC] 40 mg PO DAILY@629 30 Days #30 capsule. Pregabalin [Lyrica] 250 mg PO HS Oxycodone HCl/Acetaminophen [Endocet 10-325 mg Tablet] 1 tab PO Q6H PRN 3 Days #15 tablet PRN Reason: Pain Discontinued Clopidogrel [Plavix] 75 mg PO DAILY #30 tablet Metoprolol [Lopressor] 100 mg PO BID Home Medications: Amlodipine Besylate 10 mg PO DAILY 12/29/17 [History] Aspirin [Lo-Dose Aspirin EC] 81 mg PO DAILY 12/29/17 [History] Lisinopril [Zestril] 20 mg PO DAILY 12/29/17 [History] Atorvastatin [Lipitor] 80 mg PO HS #60 tablet 01/16/18 [Rx] Nitroglycerin [Nitrostat] 0.4 mg SL Q5MIN PRN 04/23/18 [History] Omeprazole [PriLOSEC] 40 mg PO DAILY@0630 30 Days #30 capsule. 04/25/18 [Rx] Meclizine [Antivert] 25 mg PO TID PRN #30 tablet 07/24/19 [Rx] Pregabalin [Lyrica] 250 mg PO HS 07/25/19 [History] Apixaban [Eliquis] 5 mg PO BID #60 tab 08/01/19 [Rx] Artificial Tears SOLN [Akwa Tears] 1 drop LEFT EYE QID #1 bottle 08/01/19 [Rx] Carvedilol [Coreg] 25 mg PO BIDWM #60 tablet 08/01/19 [Rx] Oxycodone HCl/Acetaminophen [Endocet 10-325 mg Tablet] 1 tab PO Q6H PRN 3 Days #15 tablet 08/01/19 [Rx] Allergies/Adverse Reactions: Allergy/AdvReac Type Severity Reaction Status Date / Time tramadol [From Ultram] Allergy See Verified 04/23/18 11:06 Comments Date of admission: 07/26/19 11:31 Primary care physician: Mauro Serrano Consults: 07/25/19 21:56 Consult to Neurology [CONS] Stat Consulting Provider: Neurology [facility] Reason for Consult: Positive MRI Call Completed: Yes 07/26/19 07:48 Consult to Cardiology [CONS] Routine Comment: Consulting Provider: Cardiology Jeana Reason for Consult: NSTEMI, new CVA Call Completed: Yes 07/26/19 14:41 Consult to Speech Therapy [CONS] Routine Comment: Evaluate, develop and implement POC Reason for Consult: CVA, for speech eval Call Completed: Yes 07/29/19 11:24 Consult to Occupational Therapy [CONS] Routine Comment: Evaluate, develop and implement POC Reason for Consult: CVA Does patient have active BEDREST order?: No Is patient medically & hemodynamically stable?: Yes Consult to Physical Therapy [CONS] Routine Comment: Evaluate, develop and implement POC Reason for Consult: CVA Does patient have active BEDREST order?: No Is patient medically & hemodynamically stable?: Yes 07/31/19 07:51 Consult to Nurse Navigator [CONS] Routine Comment: copd, chf Consult to Rn Stars [CONS] Routine Reason for SW Consult: needs rehab - Constitutional Vitals: Temp Pulse Resp BP Pulse Ox 97.7 F 63 18 138/78 94 08/01/19 08:00 08/01/19 08:00 08/01/19 08:00 08/01/19 08:00 08/01/19 08:26 Exam: General: continues to remain oriented to self, place, and year, unchanged dysarthria HEENT: PERRL Cardiovascular:Normal S1 & S2, No JVD. Pulse regular. Lungs: Mostly clear to auscultation Abdomen:Soft, non-tender, no rigidity. Neurological: R UE/LE power 2/5 - Patient Status Disposition: Transfer SNF Condition: Good Overall status at discharge: patient is progressing back to baseline - Discharge Instructions Instructions: Acute Respiratory Distress Syndrome (DC), Atrial Fibrillation (DC), Chronic Hypertension (DC), Diabetes Mellitus Type 2 in Adults (DC) Follow Up With: Mauro Serrano [Primary Care Provider] - Felix Muñoz DO [Partnered Physician] - Shonna Hutchins MD [Partnered Physician] - - Diet and Activity Activity: as per physical therapy Diet: other (Pureed diet with nectar thickened liquid)
--- NOTE | 2019-08-01 10:48 | Physician Discharge Referral ---
ExtendedCare Referral Info Institutional Level of Care: Skilled - Diagnosis (1) Cerebellar infarction Priority: Primary Status: Acute (2) NSTEMI (non-ST elevated myocardial infarction) Priority: Secondary Status: Acute (3) Acute respiratory failure with hypoxia Priority: Secondary Status: Acute (4) (HFpEF) heart failure with preserved ejection fraction Priority: Secondary Status: Chronic (5) Afib Priority: Secondary Status: Acute (6) Hypertension Priority: Secondary Status: Chronic (7) CKD (chronic kidney disease) Priority: Secondary Status: Chronic (8) Morbid obesity Priority: Secondary Status: Chronic Prognosis: Fair - Transfer Medications Prescriptions: Artificial Tears SOLN [Akwa Tears] 1 drop LEFT EYE QID #1 bottle Carvedilol [Coreg] 25 mg PO BIDWM #60 tablet Apixaban [Eliquis] 5 mg PO BID #60 tab Oxycodone HCl/Acetaminophen [Endocet 10-325 mg Tablet] 1 tab PO Q6H PRN 3 Days #15 tablet PRN Reason: Pain Home Medications: Amlodipine Besylate 10 mg PO DAILY 12/29/17 [History] Aspirin [Lo-Dose Aspirin EC] 81 mg PO DAILY 12/29/17 [History] Lisinopril [Zestril] 20 mg PO DAILY 12/29/17 [History] Atorvastatin [Lipitor] 80 mg PO HS #60 tablet 01/16/18 [Rx] Nitroglycerin [Nitrostat] 0.4 mg SL Q5MIN PRN 04/23/18 [History] Omeprazole [PriLOSEC] 40 mg PO DAILY@0630 30 Days #30 capsule. 04/25/18 [Rx] Meclizine [Antivert] 25 mg PO TID PRN #30 tablet 07/24/19 [Rx] Pregabalin [Lyrica] 250 mg PO HS 07/25/19 [History] Apixaban [Eliquis] 5 mg PO BID #60 tab 08/01/19 [Rx] Artificial Tears SOLN [Akwa Tears] 1 drop LEFT EYE QID #1 bottle 08/01/19 [Rx] Carvedilol [Coreg] 25 mg PO BIDWM #60 tablet 08/01/19 [Rx] Oxycodone HCl/Acetaminophen [Endocet 10-325 mg Tablet] 1 tab PO Q6H PRN 3 Days #15 tablet 08/01/19 [Rx] Allergies/Adverse Reactions: Allergy/AdvReac Type Severity Reaction Status Date / Time tramadol [From Ultram] Allergy See Verified 04/23/18 11:06 Comments - Respiratory Orders Smoking Cessation: Smoking cessation has been advised. For more information, call the [place] Tobacco Quit Line at 1-742-EGAB-NOW. - Advance Directives Code Status: Full Code - Rehabiliation Orders Rehab Potential: Good Rehab Orders: Evaluation for Physical Therapy, Evaluation for Occupational Therapy, Evaluation for Speech Therapy - Diet Orders Pureed CERTIFICATION: I certify that the transfer of the above named patient to an Extended Care Facility is necessary for the continuing treatment of the diagnosis listed. The above information is true and accurate reflection of patient's current condition. Confidential - Redisclosure prohibited without a patient's written consent.
[2019-08-01] MEDS ORDERED: Ampicillin/Sulbactam 3,000 MG in 0.9 % Sodium Chloride Mini Bag 100 ML IVPB SCH (12:00)
[2019-08-01 15:25] VITALS: BP 146/87
== END 2019-08-01 17:26 ==
LOC: 3ANU 20:03 → EMEROOARM 20:03 → SUATTDRO 07-25 01:17 → 3ANU 07-25 01:50 → 2NENU 07-26 09:37 → 2NNU 07-27 22:41 → 2ANU 07-30 10:18
PROVIDERS: ADMIT Internal Medicine; ATTEND Internal Medicine